=== PATIENT | female | born 1940 | race Caucasian/White ===

== ENCOUNTER → 2016-11-01 | Outpatient (CLI) | payer OTHER ==
[~2016-11-01] MED LIST: ACET-1256 PO; CHOL100010 PO; FELO10TA2 PO; FRS/40 PO; GLC/500 PO; GLC500 PO; GLIP-197 PO; POTA20TA16 PO; PRAV40TA2 PO; WARF3TAB PO; WARF6TAB PO
[2016-11-01 13:45] LABS: ESTIMATED AVERAGE GLUCOSE 194 mg/dl; HA1C FLAG Normal (Normal)
== END | disposition home or self-care (01) ==
LOC: C.LABBC 10:05
PROVIDERS: ATTEND Internal Medicine
DX: E11.9 Type 2 diabetes mellitus without complications (principal)

== ENCOUNTER → 2017-03-20 | Outpatient (CLI) | payer OTHER ==
--- NOTE | 2017-03-20 14:04 | MAMMOGRAPHY REPORT ---
BILATERAL DIGITAL SCREENING MAMMOGRAM WITH CAD: 03/20/2017 CLINICAL HISTORY: Routine screening. Patient has no complaints. TECHNIQUE: Current study was also evaluated with a Computer Aided Detection (CAD) system. Bilateral CC and MLO views were obtained. COMPARISON: Comparison is made to exams dated: 03/14/2016 mammogram, 03/13/2015 mammogram, 03/10/2014 adrian mogram, 01/28/2013 mammogram, 01/15/2012 mammogram, and 01/03/2010 mammogram - [facility] er. BREAST COMPOSITION: There are scattered areas of fibroglandular density in both breasts. FINDINGS: No suspicious masses, calcifications, or areas of architectural distortion are noted in ei ther breast. There has been no significant interval change compared to prior exams. Nodular asymmetr y in the left lateral breast on the cc view middle depth is similar to prior exams including the 2012 exam, and considered benign given long-term stability. Bilateral benign vascular calcifications are again noted. IMPRESSION: ACR BI-RADS CATEGORY 2: BENIGN There is no mammographic evidence of malignancy. A 1 year screening mammogram is recommended. The pa tient will receive written notification of the results. Approximately 10% of breast cancers are not detected with mammography. A negative mammographic report should not delay biopsy if a clinically suggestive mass is present. Nicolasa Lindquist M.D. /:03/20/2017 08:53:41 District Branch Manager: Ansley Muir, [facility] letter sent: Normal 1/2 BI-RADS Code: ACR BI-RADS Category 2: Benign
== END | disposition home or self-care (01) ==
LOC: C.MAMM 08:20
PROVIDERS: ATTEND Internal Medicine
DX: Z12.31 Encounter for screening mammogram for malignant neoplasm of breast (principal)

== ENCOUNTER → 2017-05-20 | Outpatient (CLI) | payer OTHER ==
[2017-05-20 12:12] LABS: BASO % 0.3 %; BASO ABS # 0.02 K/uL (0-0.2); COMPLETE YES; EOS % 1.7 %; HEMATOCRIT 39.4 % (37-47); IG% 0.4 %; LYMPH % 26.4 %; MEAN CELL VOLUME 93.6 fL (80-100); MEAN CORPUSCULAR HEMOGLOBIN 31.1 pg (25-34); MEAN CORPUSCULAR HGB CONC 33.2 g/dl (32-36); MEAN PLATELET VOLUME 10.7 fL (7.4-10.4); MONO % 7.4 %; NEUT % 63.8 %; PLATELET COUNT 300 K/uL (130-400); RED BLOOD COUNT 4.21 M/uL (4.2-5.4); WHITE BLOOD COUNT 7.19 K/uL (4.8-10.8)
[2017-05-20 12:24] LABS: ESTIMATED AVERAGE GLUCOSE 197 mg/dl; HA1C FLAG Normal (Normal)
[2017-05-20 12:34] LABS: ALT/SGPT 18 U/L (12-78); BLOOD UREA NITROGEN 20 mg/dl (7-18); CALCIUM 9.5 mg/dl (8.5-10.1); CARBON DIOXIDE 27 mmol/L (21-32); CHLORIDE 104 mmol/L (98-107); CHOLESTEROL 199 mg/dl (0-200); CREATININE 0.87 mg/dl (0.60-1.20); GLUCOSE 224 mg/dl (70-99); POTASSIUM 4.4 mmol/L (3.5-5.1); SODIUM 138 mmol/L (136-145); TRIGLYCERIDES 267 mg/dl (0-150); VERY LOW DENSITY LIPOPROT CALC 53 mg/dl
[2017-05-20 12:44] LABS: ALB/GLOB RATIO 0.9 (0.9-2); ALKALINE PHOSPHATASE 80 U/L (45-117); AST/SGOT 12 U/L (15-37); CHOLESTEROL/HDL RATIO 3.3; HDL CHOLESTEROL 60 mg/dl; LDL CHOLESTEROL CALCULATED 86 mg/dl
== END | disposition home or self-care (01) ==
LOC: C.LABBFT 08:05
PROVIDERS: ATTEND Internal Medicine
DX: G47.33 Obstructive sleep apnea (adult) (pediatric) (principal); E78.5 Hyperlipidemia, unspecified; E11.9 Type 2 diabetes mellitus without complications; I10 Essential (primary) hypertension; E55.9 Vitamin D deficiency, unspecified; Z79.01 Long term (current) use of anticoagulants; Z51.81 Encounter for therapeutic drug level monitoring; Z68.42 Body mass index [BMI] 45.0-49.9, adult; M99.73 Connective tissue and disc stenosis of intervertebral foramina of lumbar region

== ENCOUNTER → 2017-05-22 | Outpatient (CLI) | payer OTHER ==
--- NOTE | 2017-05-22 18:30 | DIAGNOSTIC IMAGING REPORT ---
MRI OF THE LEFT HIP WITHOUT CONTRAST CLINICAL HISTORY: Severe left hip and groin pain. COMPARISON STUDY: Pelvis radiograph December 27, 2014. TECHNIQUE: Utilizing a 1.5 Silvana magnet and dedicated coil, multiplanar, multiecho imaging of the left hip was performed without intravenous or intraarticular contrast. FINDINGS: Alignment of the left hip is anatomic. There is no evidence for avascular necrosis. No marrow edema or marrow replacement is present. There is mild osteoarthritis of the left hip with minimal joint space narrowing and osteophytosis. There is a suspected tear of the anterior superior acetabular labrum which is suboptimally assessed on this nonarthrogram exam. No hematoma is identified within the pelvis. Postoperative findings within the lumbar spine are partially imaged on this examination. There is an old medial left pubic bone fracture. There is no evidence for acute fracture. No muscular abnormality of the left hip is identified. IMPRESSION: 1. No acute abnormality within the left hip by MRI. No fracture or evidence for avascular necrosis. 2. Mild osteoarthritis of the left hip. 3. Suspected anterior superior left acetabular labral tear. Electronically signed by: Taras Franco M.D. 05/22/2017 6:28 PM Dictated Date/Time: 05/22/2017 6:21 PM
== END | disposition home or self-care (01) ==
LOC: C.MRI 16:41
PROVIDERS: ATTEND Physician Assistant
DX: M25.552 Pain in left hip (principal)

== ENCOUNTER → 2017-11-06 | Outpatient (CLI) | payer OTHER ==
[~2017-11-06] MED LIST changes: +TRAM-10 PO
[2017-11-06 13:09] LABS: BASO % 0.3 %; BASO ABS # 0.03 K/uL (0-0.2); EOS % 0.9 %; EOS ABS # 0.08 K/uL (0-0.5); HEMATOCRIT 42.4 % (37-47); HEMOGLOBIN 14.5 g/dL (12.0-16.0); IG# 0.02 K/uL (0.00-0.02); LYMPH % 23.6 %; LYMPH ABS # 2.05 K/uL (1.2-3.4); MEAN CELL VOLUME 92.4 fL (80-100); MEAN CORPUSCULAR HEMOGLOBIN 31.6 pg (25-34); MEAN CORPUSCULAR HGB CONC 34.2 g/dl (32-36); MONO % 6.5 %; MONO ABS # 0.56 K/uL (0.11-0.59); NEUT % 68.5 %; NEUT ABS # 5.94 K/uL (1.4-6.5); PLATELET COUNT 320 K/uL (130-400); RED CELL DISTRIBUTION WIDTH CV 13.7 % (11.5-14.5); RED CELL DISTRIBUTION WIDTH SD 46.4 fL (36.4-46.3); WHITE BLOOD COUNT 8.68 K/uL (4.8-10.8)
[2017-11-06 13:38] LABS: HEMOGLOBIN A1C 9.2 % (4.5-5.6)
[2017-11-06 14:48] LABS: ALBUMIN 3.8 gm/dl (3.4-5.0); ALKALINE PHOSPHATASE 97 U/L (45-117); ALT/SGPT 23 U/L (12-78); AST/SGOT 11 U/L (15-37); BLOOD UREA NITROGEN 17 mg/dl (7-18); CALCIUM 9.8 mg/dl (8.5-10.1); CARBON DIOXIDE 28 mmol/L (21-32); CREATININE 0.84 mg/dl (0.60-1.20); GLUCOSE 270 mg/dl (70-99); POTASSIUM 4.3 mmol/L (3.5-5.1); SODIUM 134 mmol/L (136-145); TOTAL PROTEIN 7.7 gm/dl (6.4-8.2)
== END | disposition home or self-care (01) ==
LOC: C.LABBC 11:05
PROVIDERS: ATTEND Internal Medicine
DX: G47.33 Obstructive sleep apnea (adult) (pediatric) (principal); E78.5 Hyperlipidemia, unspecified; E11.9 Type 2 diabetes mellitus without complications; Z98.890 Other specified postprocedural states; I10 Essential (primary) hypertension; G89.4 Chronic pain syndrome; Z68.42 Body mass index [BMI] 45.0-49.9, adult

== ENCOUNTER 2017-11-27 09:24 | Emergency (ER) | payer OTHER ==
[~2017-11-27] VITALS: Ht 162.6 cm; Wt 127.0 kg
[~2017-11-27 09:24] MED LIST changes: +POTA-639 PO; -POTA20TA16 PO
[2017-11-27 09:27] VITALS: TEMP 36.4
[2017-11-27] MEDS ORDERED: DIAZEPAM 5MG TAB PO ONE (09:45)
--- NOTE | 2017-11-27 09:54 | EMERGENCY ROOM VISIT NOTE ---
History Report prepared by Mauricio: Crista Bellamy Under the Supervision of: Dr. Ramses Heath M.D. First contact with patient: 09:30 Chief Complaint: NECK PAIN Stated Complaint: NECK PAIN, HIGH BLOOD SUGAR History of Present Illness The patient is a 77 year old white female with a past medical history of diabetes who presents to the ED with a cc of constant right sided neck pain beginning Friday, two days ago. Positive neck pain and stiffness. Negative sore throat. The patient reports she woke up with the pain on Friday. The patient talked to Dr. Augustine on Friday who told her to use a heating pad and follow up if her pain did not resolve by today.. She reports worsening pain with movement. She denies any recent falls/trauma or chiropractic manipulation. She has taken tramadol and Tylenol with no relief. She notes using a heating pad with minimal relief. The patient is on metformin and denies any recent changes to her medications. Source of History: patient Onset: two days ago Position: neck Quality: other (stiffness) Timing: constant Modifying Factors (Worsening): movement Modifying Factors (Relieving): heat Associated Symptoms: + neck pain, No sorethroat Review of Systems See HPI for pertinent positives and negatives. A total of ten systems were reviewed and were otherwise negative. Past Medical & Surgical Medical Problems: (1) Compression fracture of L3 lumbar vertebra (2) Diabetes (3) Left leg paresthesias (4) Lumbar stenosis with neurogenic claudication (5) PE (pulmonary embolism) Surgical Problems: (1) H/O: hysterectomy (2) Hx of cholecystectomy Family History Diabetes mellitus Social History Smoking Status: Never Smoker Alcohol Use: none Drug Use: none Marital Status: Housing Status: lives with family Occupation Status: unemployed Current/Historical Medications Scheduled Cholecalciferol (D 1000), 2,000 UNITS PO DAILY Cyclobenzaprine Hcl (Flexeril), 1 TAB PO TID Felodipine (Plendil), 10 MG PO QAM Furosemide (Lasix), 40 MG PO DAILY Glipizide (Glipizide Er), 1 TAB PO DAILY Metformin Hcl (Glucophage), 1,000 MG PO QDD Metformin Hcl (Glucophage), 1,000 MG PO DAILY Potassium Ext Rel (Klor-Con), 20 MEQ PO DAILY Pravastatin Sodium (Pravastatin Sodium), 40 MG PO HS Warfarin Sodium (Coumadin), 3 MG PO 3XWK Warfarin Sodium (Coumadin), 6 MG PO 4XWK Scheduled PRN Acetaminophen (Tylenol), 1-2 TABS PO Q6 PRN for Pain Tramadol (Ultram), Unknown Dose PO UD PRN for Pain Allergies Coded Allergies: No Known Allergies (Unverified , 11/27/17) Physical Exam Vital Signs Date Time Temp Pulse Resp B/P (MAP) Pulse Ox O2 Delivery O2 Flow Rate FiO2 11/27/17 11:51 86 16 150/70 97 11/27/17 11:28 86 16 150/70 97 Room Air 11/27/17 09:27 36.4 91 20 172/75 97 Room Air Physical Exam GENERAL: Awake, alert, well-appearing, NAD HENT: Normocephalic, atraumatic. EYES: Normal conjunctiva. Sclera non-icteric. NECK: Supple. No nuchal rigidity. Decreased ROM to right, is able to extend and flex and turn to the left. No carotid bruits auscultated, no stridor. RESPIRATORY: CTAB, no rhonchi, wheezing, crackles CARDIAC: RRR, no MRG ABDOMEN: Soft, obese, NTND, BS+ MSK: No chest wall TTP, no LE edema NEURO: GCS 15, CN 2-12 intact, moves all 4s on command SKIN: No rash or jaundice noted. Medical Decision & Procedures ER Provider Diagnostic Interpretation: Radiology results as stated below per my review and radiologist interpretation: CERVICAL SPINE 3 VIEWS HISTORY: R sided neck pain, trace movement L, decreased movement R COMPARISON: None. FINDINGS: The cervical spine is visualized from C1 through the superior endplate of T1. There is no fracture. No subluxation. Mild disc space narrowing at C4-C5 and C5-C6 with tiny endplate osteophytes. Prevertebral soft tissues and the atlantodens interval are intact. IMPRESSION: No fracture or subluxation within the cervical spine. Mild degenerative disc disease at C4-C5 and C5-C6. Electronically signed by: Javier Quinn M.D. Laboratory Results 11/27/17 09:55 Red Blood Count 4.46, Mean Corpuscular Volume 92.8, Mean Corpuscular Hemoglobin 31.4, Mean Corpuscular Hemoglobin Concent 33.8, Mean Platelet Volume 10.7, Neutrophils (%) (Auto) 73.3, Lymphocytes (%) (Auto) 19.5, Monocytes (%) (Auto) 5.3, Eosinophils (%) (Auto) 1.5, Basophils (%) (Auto) 0.2, Neutrophils # (Auto) 6.32, Lymphocytes # (Auto) 1.68, Monocytes # (Auto) 0.46, Eosinophils # (Auto) 0.13, Basophils # (Auto) 0.02 11/27/17 09:55 Test 11/27/17 09:55 White Blood Count 8.63 K/uL (4.8-10.8) Red Blood Count 4.46 M/uL (4.2-5.4) Hemoglobin 14.0 g/dL (12.0-16.0) Hematocrit 41.4 % (37-47) Mean Corpuscular Volume 92.8 fL (80-100) Mean Corpuscular Hemoglobin 31.4 pg (25-34) Mean Corpuscular Hemoglobin Concent 33.8 g/dl (32-36) Platelet Count 312 K/uL (130-400) Mean Platelet Volume 10.7 fL (7.4-10.4) Neutrophils (%) (Auto) 73.3 % Lymphocytes (%) (Auto) 19.5 % Monocytes (%) (Auto) 5.3 % Eosinophils (%) (Auto) 1.5 % Basophils (%) (Auto) 0.2 % Neutrophils # (Auto) 6.32 K/uL (1.4-6.5) Lymphocytes # (Auto) 1.68 K/uL (1.2-3.4) Monocytes # (Auto) 0.46 K/uL (0.11-0.59) Eosinophils # (Auto) 0.13 K/uL (0-0.5) Basophils # (Auto) 0.02 K/uL (0-0.2) RDW Standard Deviation 45.6 fL (36.4-46.3) RDW Coefficient of Variation 13.4 % (11.5-14.5) Immature Granulocyte % (Auto) 0.2 % Immature Granulocyte # (Auto) 0.02 K/uL (0.00-0.02) Prothrombin Time 22.3 SECONDS (9.0-12.0) Prothromb Time International Ratio 2.2 (0.9-1.1) Activated Partial Thromboplast Time 36.3 SECONDS (21.0-31.0) Partial Thromboplastin Ratio 1.4 Anion Gap 7.0 mmol/L (3-11) Est Creatinine Clear Calc Drug Dose 65.8 ml/min Estimated GFR () 66.6 Estimated GFR (Non- 57.4 BUN/Creatinine Ratio 16.7 (10-20) Calcium Level 9.7 mg/dl (8.5-10.1) Magnesium Level 1.8 mg/dl (1.8-2.4) Total Bilirubin 0.9 mg/dl (0.2-1) Direct Bilirubin 0.2 mg/dl (0-0.2) Aspartate Amino Transf (AST/SGOT) 14 U/L (15-37) Alanine Aminotransferase (ALT/SGPT) 20 U/L (12-78) Alkaline Phosphatase 93 U/L (45-117) Total Protein 8.1 gm/dl (6.4-8.2) Albumin 3.8 gm/dl (3.4-5.0) Beta-Hydroxybutyric Acid 2.15 mg/dL (0.2-2.81) Thyroid Stimulating Hormone (TSH) 1.800 uIu/ml (0.300-4.500) Laboratory results reviewed by me Medications Administered Medications (Trade) Dose Ordered Sig/Kimberly Route Start Time Stop Time Status Last Admin Dose Admin Diazepam (Valium Tab) 5 mg NOW ONCE PO 11/27/17 09:45 11/27/17 09:46 DC 11/27/17 09:46 5 MG ED Course 0934: The patient was evaluated in room B4B. A complete history and physical exam was performed. 1039: On reassessment the patient has improved neck movement. 1126: I updated the patient on her test results. She is resting comfortably. 1155: I reevaluated the patient. Discussed results and discharge instructions: She verbalized understanding and agreement. The patient is ready for discharge. Medical Decision The patient is a 77 year old white female with a past medical history of diabetes who presents to the ED with a cc of right sided neck pain beginning Friday, two days ago. Nursing notes reviewed. Ancillary studies and prior records reviewed. Differential diagnosis: Etiologies such as fracture, dislocation, neurovascular compromise, compartment syndrome, soft tissue injury, as well as others were entertained. Patient was seen and evaluated the bedside. Patient has complained of persistent right-sided neck discomfort. On exam she does have pain at the trapezius. Patient has no bruits auscultated and is not stridulous. The patient is able to turn mildly to the left and does have some mild ability to flex and extend the neck but decreased ability to turn to the right. Patient denies any recent trauma. Patient is unsure as to whether she slept on it wrong. Patient denies any numbness, tingling, or weakness. Of note the patient does take Coumadin for prior PE. Patient did have blood work completed along with a cervical spine series and the patient was given some Valium. The patient had taken some Tylenol and tramadol [employer]. Patient's blood work is fairly unremarkable. Patient's INR is therapeutic. Patient did have elevated blood glucose. Patient was told to continue to take her medications and to follow-up with her PCP. Patient was also counseled on diet, physical activity. Patient's bicarb and anion gap are normal. Less likely DKA. Patient's neck pain did improve with the Valium. I do not believe that she requires more advanced imaging given her nonfocal neurologic exam, lack of fever, and only complains of decreased mobility to the right side. This is improved after medications. Patient does have some degenerative change seen on her cervical spine films. Patient was deemed suitable for outpatient follow-up and treatment at this time. Patient was given strict follow-up, discharge, and return precautions. All questions were answered. Patient was deemed suitable for outpatient follow-up at this time. Patient agreed with the plan of care and was safely discharged home. Medication Reconcilliation Current Medication List: was personally reviewed by me Blood Pressure Screening Patient's blood pressure: Elevated blood pressure Blood pressure disposition: Referred to PCP Impression Primary Impression: Spasm of cervical paraspinous muscle Additional Impressions: Trapezius muscle spasm Hyperglycemia Scribe Attestation The scribe's documentation has been prepared under my direction and personally reviewed by me in its entirety. I confirm that the note above accurately reflects all work, treatment, procedures, and medical decision making performed by me. Departure Information Dispostion Home / Self-Care Prescriptions Cyclobenzaprine Hcl (FLEXERIL) 10 Mg Tab 1 TAB PO TID for 3 Days, #9 TAB Prov: Ramses Heath M.D. 11/27/17 Referrals Roverto Augustine M.D. (PCP) Forms HOME CARE DOCUMENTATION FORM, IMPORTANT VISIT INFORMATION, WORK / SCHOOL INSTRUCTIONS Patient Instructions ED Neck Pain No Trauma, ED Spasm Neck No Injury, [facility] Additional Instructions Please return to the emergency department if you have worsening or recurrent symptoms not amenable to at-home treatment. Please call for a follow-up appointment with her primary care physician. Please take your medications as prescribed. If you have other concerns and/or complaints please feel free to also call your primary care physician's office or return the ED for further evaluation, management, and treatment. You may take tylenol 650 mg every 6 hours as needed for pain/fever unless told by your physician to not take it or have liver problems. You may continue to take the Tylenol and tramadol. If he still have discomfort you may try the Flexeril. Use the Flexeril with caution as it can cause you to be sleepy, sedated, and/or cause respiratory problems. He may also apply ice and or moist heat to her neck. You can do gentle range of motion, stretching and exercises. Please follow-up with your PCP or return to the emergency department if you have persistent symptoms. Take your medications as prescribed. You have been examined and treated today on an emergency basis only. This is not a substitute for, or an effort to provide, complete comprehensive medical care. It is impossible to recognize and treat all injuries or illnesses in a single emergency department visit. It is therefore important that you follow up closely with [facility], your PCP, and/or your specialist(s). Call as soon as possible for an appointment. Thank you for your time and consideration. I look forward to speaking with you again soon. Please don't hesitate to call us if you have any questions. Problem Qualifiers
[2017-11-27 10:00] VITALS: Ht 162.6 cm; Wt 127.0 kg
[2017-11-27 10:20] LABS: BASO % 0.2 %; BASO ABS # 0.02 K/uL (0-0.2); EOS % 1.5 %; EOS ABS # 0.13 K/uL (0-0.5); HEMATOCRIT 41.4 % (37-47); IG# 0.02 K/uL (0.00-0.02); LYMPH % 19.5 %; LYMPH ABS # 1.68 K/uL (1.2-3.4); MEAN CELL VOLUME 92.8 fL (80-100); MEAN CORPUSCULAR HEMOGLOBIN 31.4 pg (25-34); MEAN CORPUSCULAR HGB CONC 33.8 g/dl (32-36); MEAN PLATELET VOLUME 10.7 fL (7.4-10.4); MONO % 5.3 %; MONO ABS # 0.46 K/uL (0.11-0.59); NEUT % 73.3 %; NEUT ABS # 6.32 K/uL (1.4-6.5); PLATELET COUNT 312 K/uL (130-400); RED CELL DISTRIBUTION WIDTH CV 13.4 % (11.5-14.5); RED CELL DISTRIBUTION WIDTH SD 45.6 fL (36.4-46.3); WHITE BLOOD COUNT 8.63 K/uL (4.8-10.8)
[2017-11-27] MEDS ORDERED: METF500T PO (10:29)
[2017-11-27] MEDS ORDERED: CHOL100041 PO (10:29)
[2017-11-27 10:31] LABS: INR 2.2 (0.9-1.1); PTT PATIENT 36.3 SECONDS (21.0-31.0)
[2017-11-27 10:36] LABS: ALBUMIN 3.8 gm/dl (3.4-5.0); CALCIUM 9.7 mg/dl (8.5-10.1); CREATININE 0.96 mg/dl (0.60-1.20)
--- NOTE | 2017-11-27 10:36 | DIAGNOSTIC IMAGING REPORT ---
CERVICAL SPINE 3 VIEWS HISTORY: R sided neck pain, trace movement L, decreased movement R COMPARISON: None. FINDINGS: The cervical spine is visualized from C1 through the superior endplate of T1. There is no fracture. No subluxation. Mild disc space narrowing at C4-C5 and C5-C6 with tiny endplate osteophytes. Prevertebral soft tissues and the atlantodens interval are intact. IMPRESSION: No fracture or subluxation within the cervical spine. Mild degenerative disc disease at C4-C5 and C5-C6. Electronically signed by: Javier Quinn M.D. 11/27/2017 10:35 AM Dictated Date/Time: 11/27/2017 10:20 AM
[2017-11-27 10:38] LABS: TOTAL PROTEIN 8.1 gm/dl (6.4-8.2)
[2017-11-27] MEDS ORDERED: CYCL10TA6 PO (11:41)
[2017-11-27 11:51] VITALS: BP 150/70; PULSE 86; O2SAT 97
== END 2017-11-27 11:52 | disposition home or self-care (01) ==
LOC: C.EDB 09:25
DX: M62.838 Other muscle spasm (principal); E11.65 Type 2 diabetes mellitus with hyperglycemia; M48.062 Spinal stenosis, lumbar region with neurogenic claudication; Z79.84 Long term (current) use of oral hypoglycemic drugs; Z79.01 Long term (current) use of anticoagulants; Z79.899 Other long term (current) drug therapy; Z86.711 Personal history of pulmonary embolism; Z90.710 Acquired absence of both cervix and uterus; Z90.49 Acquired absence of other specified parts of digestive tract

== ENCOUNTER → 2018-03-24 | Outpatient (CLI) | payer OTHER ==
[~2018-03-24] MED LIST changes: +CANA1TAB PO; -CHOL100010 PO; +CHOL100041 PO; +DOXY100C76 PO; -GLC/500 PO; -GLC500 PO; +METF500T PO; -TRAM-10 PO; -WARF3TAB PO; +WARF3TAB6 PO; -WARF6TAB PO; +WARF6TAB5 PO
--- NOTE | 2018-03-25 13:51 | MAMMOGRAPHY REPORT ---
BILATERAL DIGITAL SCREENING MAMMOGRAM TOMOSYNTHESIS WITH CAD: 03/24/2018 CLINICAL HISTORY: Routine screening. TECHNIQUE: The study was acquired using full field digital technology and interpreted from soft copy. Breast tomosynthesis in addition to standard 2D mammography was performed. Current study was also ev aluated with a Computer Aided Detection (CAD) system. COMPARISON: Comparison is made to exams dated: 03/20/2017 mammogram, 03/14/2016 mammogram, 03/13/2015 adrian mogram, 03/10/2014 mammogram, 01/15/2012 mammogram, and 01/28/2013 mammogram - [facility] er. BREAST COMPOSITION: There are scattered areas of fibroglandular density in both breasts. FINDINGS: Ossifications in the breasts. An asymmetry in the slightly lateral posterior left breast a ppears very similar to the 2013 and 2011 mammograms, suggesting benignity, most likely normal overlap ping fibroglandular tissue. No suspicious mass, architectural distortion or cluster of microcalcifica tions is seen. IMPRESSION: ACR BI-RADS CATEGORY 1: NEGATIVE There is no mammographic evidence of malignancy. A 1 year screening mammogram is recommended.( 019) The patient will receive written notification of the results. Some breast cancers are not detected with mammography. A negative mammographic report should not boo y biopsy if a clinically suggestive mass is present. Marychuy Desouza M.D. ay/:03/24/2018 15:35:24 Creel Clerk: RT Grey(Daron)(M), [facility] letter sent: Normal 1/2 BI-RADS Code: ACR BI-RADS Category 1: Negative
== END | disposition home or self-care (01) ==
LOC: C.MAMM 10:26
PROVIDERS: ATTEND Internal Medicine
DX: Z12.31 Encounter for screening mammogram for malignant neoplasm of breast (principal)

== ENCOUNTER 2020-10-16 05:55 | Inpatient (IN) ==
--- NOTE | 2020-09-29 12:56 | PAT Medication Instructions ---
Medication Instructions Date of Service September 29, 2020 Home Medications Medication Instructions Recorded Christoaglar KwikPen U-100 Insulin 100 16 units SUBCUT QAM #15 ml NS 12/14/19 unit/mL (3 mL) subcutaneous BD Ultra-Fine Mahsa Pen Needle 32 #100 ea NS 01/20/20 gauge x 5/32" metformin 500 mg tablet,extended 1,000 mg PO BID #360 tab 03/09/20 release 24hr potassium chloride 20 mEq 20 meq PO QAM #90 tab 05/19/20 tablet,extended release pravastatin 40 mg tablet 40 mg PO HS #90 tab 05/30/20 OneTouch Verio test strips #300 ea NS 06/29/20 amoxicillin 500 mg tablet 2,000 mg PO DIRECTED PRN #4 tab 09/27/20 cholecalciferol (vitamin D3) [Vitamin D3] 2,000 unit PO QAM cyanocobalamin (vitamin B-12) [Vitamin B-12] 500 mcg PO QAM Basaglar KwikPen U-100 Insulin 100 unit/mL (3 mL) subcutaneous 16 units SUBCUT QAM metformin 500 mg tablet,extended release 24hr 1,000 mg PO BID potassium chloride 20 mEq tablet,extended release 20 meq PO QAM pravastatin 40 mg tablet 40 mg PO HS felodipine 10 mg PO QAM furosemide 40 mg PO QAM warfarin [Jantoven] 3 mg PO WK warfarin [Jantoven] 6 mg PO 6XWK amoxicillin 500 mg tablet 2,000 mg PO DIRECTED PRN dapagliflozin [Farxiga] 5 mg PO QAM glipizide 10 mg PO BID Continue as directed amoxicillin 500 mg tablet 2,000 mg PO DIRECTED PRN ASK your prescriber and surgeon warfarin [Jantoven] 3 mg PO WK warfarin [Jantoven] 6 mg PO 6XWK DO NOT take the morning of surgery cholecalciferol (vitamin D3) [Vitamin D3] 2,000 unit PO QAM cyanocobalamin (vitamin B-12) [Vitamin B-12] 500 mcg PO QAM metformin 500 mg tablet,extended release 24hr 1,000 mg PO BID potassium chloride 20 mEq tablet,extended release 20 meq PO QAM furosemide 40 mg PO QAM dapagliflozin [Farxiga] 5 mg PO QAM glipizide 10 mg PO BID Take morning of surgery With a small sip of water, OTHERWISE NOTHING TO EAT OR DRINK AFTER MIDNIGHT: felodipine 10 mg PO QAM Take evening before surgery metformin 500 mg tablet,extended release 24hr 1,000 mg PO BID pravastatin 40 mg tablet 40 mg PO HS glipizide 10 mg PO BID Insulin Dependent Diabetic Patients * Test your blood sugar the morning of surgery * If Blood Sugar is GREATER THAN 150, take HALF of your regular dose of: Basaglar KwikPen U-100 Insulin 100 unit/mL (3 mL) -- TAKE 8 UNITS * If Blood Sugar is LESS THAN 150, DO NOT TAKE ANY: Basaglar KwikPen U-100 Insulin 100 unit/mL (3 mL) Other Notes If you have any questions please call us at [phone] or [phone] or [phone] or [phone]
--- NOTE | 2020-10-03 10:56 | Anesthesiology Consultation ---
Date of Service October 03, 2020 Assessment & Plan (1) Encounter for pre-operative examination: COVID Status: As of 10/03 assessment, patient denies travel to endemic area, known exposure/sick contacts, or symptoms of COVID19. Patient instructed that they and their household members must follow strict social distancing guidelines, wear a mask in public and avoid travel/events/gatherings for 14 days prior to surgery. Preoperative COVID19 testing [place] prior to [place] [facility] [place] made aware to self-isolate as much as possible between COVID testing and surgery. BSG AM DOS Chart Review Chart Review: Acceptable Risk for Surgery and Patient seen in Pre Admission Test ing Teaching & Discussion Instructed NPO after midnight before surgery, except medications with 15 cc of water. Medication instructions provided according to the PAT guidelines. History Surgery Operation Date: 10/16/20 12:55 Proposed Procedures p Left Sacroiliac Joint Fusion - J Luis Schafer DO Height/Weight Height: 5 ft 4 in Weight: 122.6 kg Allergies Allergy/AdvReac Type Severity Reaction Status Date / Time No Known Allergies Allergy Verified 09/27/20 13:37 Medications Home Medications Medication Instructions Recorded Confirmed Last Taken cholecalciferol (vitamin D3) 2,000 unit PO QAM 02/08/19 10/02/20 07/23/20 [Vitamin D3] cyanocobalamin (vitamin B-12) 500 mcg PO QAM 02/08/19 10/02/20 07/23/20 [Vitamin B-12] blood-glucose meter #1 ea 07/23/19 10/02/20 Unknown lancets 33 gauge #100 ea 07/23/19 10/02/20 Unknown Ellie Liang U-100 Insulin 100 16 units SUBCUT QAM #15 ml NS 12/14/19 10/02/20 07/23/20 unit/mL (3 mL) subcutaneous BD Ultra-Fine Mahsa Pen Needle 32 #100 ea NS 01/20/20 10/02/20 Unknown gauge x 5/32" metformin 500 mg tablet,extended 1,000 mg PO BID #360 tab 03/09/20 10/02/20 07/23/20 09:00 release 24hr potassium chloride 20 mEq 20 meq PO QAM #90 tab 05/19/20 10/02/20 07/23/20 tablet,extended release pravastatin 40 mg tablet 40 mg PO HS #90 tab 05/30/20 10/02/20 07/22/20 Grupanyauch Verio test strips #300 ea NS 06/29/20 10/02/20 Unknown felodipine 10 mg PO QAM 07/23/20 10/02/20 07/23/20 furosemide 40 mg PO QAM 07/23/20 10/02/20 07/23/20 amoxicillin 500 mg tablet 2,000 mg PO DIRECTED PRN #4 tab 09/27/20 10/02/20 Unknown dapagliflozin [Farxiga] 5 mg PO QAM 09/27/20 10/02/20 Unknown glipizide 10 mg PO BID 09/27/20 10/02/20 Unknown enoxaparin 40 mg/0.4 mL 40 mg SUBCUT Q24H #10 syr 10/02/20 10/02/20 Unknown subcutaneous syringe warfarin 3 mg tablet See Rx Instructions PO .COMPLEX 10/02/20 10/02/20 Unknown warfarin 6 mg tablet See Rx Instructions PO .COMPLEX 10/02/20 Unknown tab Past Medical History Medical History Chronic back pain Compression fracture of L3 lumbar vertebra hx Degenerative disc disease Diabetes mellitus, type 2 IDDM History of pulmonary embolism 1991 on WARFARIN. No problems since. History of rhinophyma nose Hx of basal cell carcinoma Hx of deep venous thrombosis 1991. no problems currently. taking coumadin daily Hyperlipidemia Hypertension Left hip pain Lumbar stenosis Myofascial pain Nausea and vomiting after administration of anesthetic agent Obstructive sleep apnea CPAP, pt reports she is very diligent and compliant. On anticoagulant therapy Past Family History Family History Father Diabetes Unknown COPD (chronic obstructive pulmonary disease) Coronary heart disease Type 2 diabetes mellitus Brother Diabetes Sister Myocardial infarction Cardiac disorder Systemic lupus erythematosus Denies family history of Ovarian cancer Prostate cancer Breast cancer Colorectal cancer Past Surgical History Surgical History History of appendectomy History of carpal tunnel release of both wrists History of colonoscopy History of knee replacement procedure of left knee History of knee replacement procedure of right knee History of tonsillectomy Hx of basal cell carcinoma excision Hx of cholecystectomy Hx of hernia repair ventral hernia repair Hx of squamous cell carcinoma excision Hx of total hysterectomy (~1970) with BSO S/P epidural steroid injection S/P laminectomy S/P lumbar fusion Status post uvulopalatopharyngoplasty Past Anesthesia History No Hx of Anesthesia Complications (other than PONV) and No Family Hx of Anesthesia Complications History of PONV No Hx of Motion Sickness and History of PONV Social History Smoking Status: Never smoker Do You Dip or Chew Tobacco: No Hx Alcohol Use: No Hx Substance Use: No substance use type: does not use Review of Systems Pt denies any recent chest pain, shortness of breath, palpitations, cough, fever, URI, or uncontrolled acid reflux. +hip pain, back pain Physical Exam Vital Signs BP: 141/72 P: 76bpm SPO2: 97% RA T: 98.0 F R: 12 Constitutional + morbidly obese ENMT Mouth: + small oral opening; no dental restorations, no chipped teeth and no loose teeth Thyromental Distance: > or= 3.5 Finger Breadths (.5) Mallampati Class: IV Rhinophymosis. Neck + thick neck Respiratory normal respiratory effort, lungs clear to auscultation Cardiovascular Rate/Rhythm: regular rate and regular rhythm Heart Sounds: no murmur Extremities: + edema (2+ nonpitting, pt reports at baseline) Testing Laboratory Results 10/03/20 11:06 10/03/20 11:06 PT 23.6 Seconds (9.0-12.0) H 10/03/20 11:06 INR 2.5 (0.9-1.1) H 10/03/20 11:06 APTT 38.7 Seconds (21.0-31.0) H 10/03/20 11:06 Hemoglobin A1c 6.2 % (4.5-5.6) H 10/03/20 11:06 Urine Color Yellow 10/03/20 11:06 Urine Appearance Clear (Clear) 10/03/20 11:06 Urine pH 5.0 (4.5-7.5) 10/03/20 11:06 Ur Specific [place] 1.015 (1.000-1.030) 10/03/20 11:06 Urine Protein Negative (Negative) 10/03/20 11:06 Urine Glucose (UA) 3+ (Negative) H 10/03/20 11:06 Urine Ketones Negative (Negative) 10/03/20 11:06 Urine Nitrite Negative (Negative) 10/03/20 11:06 Ur Leukocyte Esterase Negative (Negative) 10/03/20 11:06 Blood Type O Positive 10/03/20 11:06 Antibody Screen NEGATIVE 10/03/20 11:06 Electrocardiogram Date: 10/03/20 Findings: + NSR @ (76bpm) and + no change from (2018) Chest X-Ray Date: 10/03/20 FINDINGS: PA and lateral chest radiographs are compared to study dated 08/26/2014 and correlated with chest CT dated 03/24/2007. The heart is mildly enlarged noting atherosclerotic calcification of the thoracic aorta. The pulmonary vasculature is noncongested. There is bibasilar scarring/atelectasis. No airspace consolidation or pleural effusion is identified. There is no pneumothorax. The skeletal structures are osteopenic. Degenerative change is seen throughout the spine. Compression deformities are noted in the lower thoracic and upper lumbar region. Fusion hardware is noted at the thoracolumbar junction. There are healed right-sided rib fractures. Cholecystectomy clips are noted in the upper abdomen. IMPRESSION: Cardiomegaly with no acute cardiopulmonary abnormality.
[2020-10-03 11:47] LABS: Basophils # (auto) 0.02 K/uL (0-0.2); Basophils % (auto) 0.2 %; Eosinophils # (auto) 0.12 K/uL (0-0.5); Eosinophils % (auto) 1.5 %; Hematocrit (blood only) 42.7 % (37-47); Hemoglobin 14.3 g/dL (12.0-16.0); Immature Granulocytes # (auto) 0.03 K/uL (0.00-0.02); Immature Granulocytes % (auto) 0.4 %; Lymphocytes # (auto) 1.84 K/uL (1.2-3.4); Lymphocytes % (auto) 22.4 %; Mean Corpuscular Hemoglobin 31.5 pg (25-34); Mean Corpuscular Hgb Conc 33.5 g/dL (32-36); Mean Corpuscular Volume 94.1 fL (80-100); Mean Platelet Volume 10.6 fL (7.4-10.4); Monocytes # (auto) 0.52 K/uL (0.11-0.59); Monocytes % (auto) 6.3 %; Neutrophils # (auto) 5.67 K/uL (1.4-6.5); Neutrophils % (auto) 69.2 %; Platelet Count 360 K/uL (130-400); RDW Coefficient of Variation 13.7 % (11.5-14.5); RDW Standard Deviation 47.4 fL (36.4-46.3); Red Blood Count 4.54 M/uL (4.2-5.4)
--- NOTE | 2020-10-03 11:56 | XRay Report ---
TWO VIEW CHEST CLINICAL HISTORY: Preoperative examination. FINDINGS: PA and lateral chest radiographs are compared to study dated 08/26/2014 and correlated with chest CT dated 03/24/2007. The heart is mildly enlarged noting atherosclerotic calcification of the th oracic aorta. The pulmonary vasculature is noncongested. There is bibasilar scarring/atelectasis. No airspace consolidation or pleural effusion is identified. There is no pneumothorax. The skeletal stru ctures are osteopenic. Degenerative change is seen throughout the spine. Compression deformities are noted in the lower thoracic and upper lumbar region. Fusion hardware is noted at the thoracolumbar ju nction. There are healed right-sided rib fractures. Cholecystectomy clips are noted in the upper abdo men. IMPRESSION: Cardiomegaly with no acute cardiopulmonary abnormality. ACT 112: Negative or not required by law. Electronically signed by: Leonidas Nolasco M.D. 10/03/2020 11:54 AM
[2020-10-03 11:58] LABS: INR 2.5 (0.9-1.1); Partial Thromboplastin Ratio 1.5; Partial Thromboplastin Time 38.7 Seconds (21.0-31.0); Prothrombin Time 23.6 Seconds (9.0-12.0)
[2020-10-03 12:00] LABS: Appearance Urine Clear (Clear); Bilirubin Urine Negative (Negative); Blood Urine Negative (Negative); Color Urine Yellow; Glucose Urine UA 3+ (Negative); Ketones Urine Negative (Negative); Leukocyte Esterase Urine Negative (Negative); Nitrite Urine Negative (Negative); Protein Urine Negative (Negative); Specific Gravity Urine 1.015 (1.000-1.030); Urobilinogen Urine Negative (Negative)
[2020-10-03 12:22] LABS: BUN Creatinine Ratio 22.2 (10-20); Creatinine Clr Calc Pharmacy 64.4 ml/min; Est GFR (African American) 68.2; Est GFR (Non-African American) 58.9; Potassium 4.5 mmol/L (3.5-5.1)
[2020-10-03 13:59] LABS: Estimated Average Glucose 131 mg/dl; Hemoglobin A1C 6.2 % (4.5-5.6)
--- NOTE | 2020-10-03 16:53 | Electrocardiogram Report ---
Test Reason : Blood Pressure : / mmHG Vent. Rate : 076 BPM Atrial Rate : 076 BPM P-R Int : 136 ms QRS Dur : 082 ms QT Int : 404 ms P-R-T Axes : 074 030 046 degrees QTc Int : 454 ms Normal sinus rhythm Normal ECG When compared with ECG of 28-JAN-2018 09:05, No significant change was found Confirmed by Aneesh Stein ([id number]) on 10/03/2020 4:53:05 PM Referred By: J Luis Schafer Confirmed By:Laurent Stein
[~2020-10-16 05:55] MED LIST changes: -ACET-1256 PO; -CANA1TAB PO; -CHOL100041 PO; -DOXY100C76 PO; -FELO10TA2 PO; -FRS/40 PO; -GLIP-197 PO; +LACTATED RINGER'S 1,000 ML IV SCH; -METF500T PO; -POTA-639 PO; -PRAV40TA2 PO; -WARF3TAB6 PO; -WARF6TAB5 PO
[2020-10-16] MEDS ORDERED: ACETAMINOPHEN 500 MG TAB PO SCH (06:00)
[2020-10-16] MEDS ORDERED: GABAPENTIN 300 MG CAP PO SCH (06:00)
[2020-10-16] MEDS ORDERED: CeleBREX 200 MG CAP PO SCH (06:00)
[2020-10-16] MEDS ORDERED: LACTATED RINGER'S 1,000 ML IV SCH (06:00)
[2020-10-16] MEDS ORDERED: HYDROmorphone INJ 1 MG/ML SYRINGE IV PRN ×2 (06:30→10:13)
[2020-10-16] MEDS ORDERED: fentaNYL citrate 100 MCG/2 ML VIAL IV PRN (06:30)
[2020-10-16] MEDS ORDERED: ATROPINE SULFATE 0.1 MG/ML 10ML SYR IV PRN (06:30)
[2020-10-16] MEDS ORDERED: ePHEDrine sulfate 50 MG/ML AMP IV PRN (06:30)
[2020-10-16] MEDS ORDERED: ONDANSETRON INJ 2 MG/ML 2 ML VIAL IV PRN ×2 (06:30→10:13)
[2020-10-16] MEDS ORDERED: BACITRACIN INJ 50,000 UNIT VIAL ONE (06:57)
[2020-10-16] MEDS ORDERED: BUPIVACAINE/EPINEPHRINE 0.5% MPF 1:200,000 30 ML VIAL ONE (06:57)
[2020-10-16 07:08] LABS: Partial Thromboplastin Time 25.1 Seconds (21.0-31.0); Prothrombin Time 10.5 Seconds (9.0-12.0)
[2020-10-16] MEDS ORDERED: ROCURONIUM BROMIDE 10 MG/ML 5 ML VIAL IV ONE (07:18)
[2020-10-16] MEDS ORDERED: PROPOFOL IV EMULSION 10 MG/ML 20 ML VIAL IV ONE ×2 (07:18→07:27)
[2020-10-16] MEDS ORDERED: LIDOCAINE HCL 2% 2 ML VIAL/AMP(20MG/ML) INFIL ONE (07:18)
[2020-10-16] MEDS ORDERED: ONDANSETRON INJ 2 MG/ML 2 ML VIAL ONE ×2 (07:18→08:48)
[2020-10-16] MEDS ORDERED: DEXAMETHASONE SOD INJ 4 MG/ML VIAL ONE (07:18)
[2020-10-16] MEDS ORDERED: fentaNYL citrate 100 MCG/2 ML VIAL ONE ×2 (07:19→08:31)
[2020-10-16] MEDS ORDERED: NEOSTIGMINE METHYLSULFATE 1 MG/ML 10ML VIAL ONE (07:27)
[2020-10-16] MEDS ORDERED: GLYCOPYRROLATE 0.2 MG/ML VIAL ONE ×2 (07:27→08:40)
--- NOTE | 2020-10-16 07:30 | History & Physical Bridge Note ---
Date of Service October 16, 2020 History & Physical Bridge Note I have examined the patient, reviewed the History & Physical and in the interval since the performance of the History & Physical I have noted the following changes of clinical significance: no changes noted
--- NOTE | 2020-10-16 07:31 | History & Physical Report ---
Date of Service October 16, 2020 Assessment & Plan (1) Sacroiliitis: Admission and Anticipated Discharge Date Admission Date: Sacroiliac joint fusion History of Present Illness Chief Complaint: Sacroiliitis Primary Care Provider: Roverto Augustine MD This is a 71-year-old female known to Presents with chronic persistent sacroiliitis. After failing course of nonoperative care is here for surgical invention. Allergies Allergy/AdvReac Type Severity Reaction Status Date / Time No Known Allergies Allergy Verified 10/16/20 06:36 Home Medications Medication Instructions Recorded Confirmed Type cholecalciferol (vitamin D3) 2,000 unit PO QAM 02/08/19 10/16/20 History [Vitamin D3] cyanocobalamin (vitamin B-12) 500 mcg PO QAM 02/08/19 10/16/20 History [Vitamin B-12] blood-glucose meter #1 ea 07/23/19 10/09/20 History lancets 33 gauge #100 ea 07/23/19 10/09/20 History Christoaglsuyapa Liang U-100 Insulin 100 16 units SUBCUT QAM #15 ml NS 12/14/19 10/16/20 Rx unit/mL (3 mL) subcutaneous BD Ultra-Fine Mahsa Pen Needle 32 #100 ea NS 01/20/20 10/09/20 Rx gauge x 5/32" metformin 500 mg tablet,extended 1,000 mg PO BID #360 tab 03/09/20 10/16/20 Rx release 24hr potassium chloride 20 mEq 20 meq PO QAM #90 tab 05/19/20 10/16/20 Rx tablet,extended release pravastatin 40 mg tablet 40 mg PO HS #90 tab 05/30/20 10/16/20 Rx OneTouch Verio test strips #300 ea NS 06/29/20 10/09/20 Rx felodipine 10 mg PO QAM 07/23/20 10/16/20 History furosemide 40 mg PO QAM 07/23/20 10/16/20 History amoxicillin 500 mg tablet 2,000 mg PO DIRECTED PRN #4 tab 09/27/20 10/16/20 Rx dapagliflozin [Farxiga] 5 mg PO QAM 09/27/20 10/16/20 History glipizide 10 mg PO BID 09/27/20 10/16/20 History enoxaparin 40 mg/0.4 mL 40 mg SUBCUT Q24H #10 syr 10/02/20 10/16/20 Rx subcutaneous syringe warfarin 3 mg tablet See Rx Instructions PO .COMPLEX 10/02/20 10/16/20 History warfarin 6 mg tablet See Rx Instructions PO .COMPLEX 10/02/20 10/16/20 History tab Past Med/Surg History Medical History Chronic back pain Compression fracture of L3 lumbar vertebra Degenerative disc disease Diabetes mellitus, type 2 History of pulmonary embolism History of rhinophyma Hx of basal cell carcinoma Hx of deep venous thrombosis Hyperlipidemia Hypertension Left hip pain Lumbar stenosis Myofascial pain Nausea and vomiting after administration of anesthetic agent Obstructive sleep apnea On anticoagulant therapy Surgical History History of appendectomy History of carpal tunnel release of both wrists History of colonoscopy History of knee replacement procedure of left knee History of knee replacement procedure of right knee History of tonsillectomy Hx of basal cell carcinoma excision Hx of cholecystectomy Hx of hernia repair Hx of squamous cell carcinoma excision Hx of total hysterectomy (~1970) S/P epidural steroid injection S/P laminectomy S/P lumbar fusion Status post uvulopalatopharyngoplasty Family History Father Diabetes Unknown COPD (chronic obstructive pulmonary disease) Coronary heart disease Type 2 diabetes mellitus Brother Diabetes Sister Myocardial infarction Cardiac disorder Systemic lupus erythematosus Denies family history of Ovarian cancer Prostate cancer Breast cancer Colorectal cancer Social History Smoking Status: Never smoker Second Hand Exposure: No; Do You Dip or Chew Tobacco: No; Tobacco Cessation Education Requested by Patient: No Hx Alcohol Use: No Hx Substance Use: No Preferred Language: Upper Sorbian Communication Ability: Effective Visual Impairment: Limited Hearing Ability: Normal Vehicle Body Builder Required: No Beliefs That Will Affect Care: None marital status: Current Living Situation: Spouse current occupational status: retired Other Information That Helps Us Care for You: No Feels Safe at Home: Yes Safety Concerns: Feels Safe At This Time Childhood Exposure to Second-Hand Smoke: Yes caffeine: Yes Dental Care, Regularly: Yes Physical Activity Frequency: 1-2 Times per Week Physical Activity Frequency Comment: walk Seatbelt Use: always Sunscreen Use: Yes Assistive Devices: CPAP and Glasses Physical Exam Physical Exam: Patient is alert and oriented Heart regular rate and rhythm Lungs clear to auscultation Results & Data ([facility]) Vital Signs (Past 12 Hours) Vital Signs Temp Pulse Resp BP Pulse Ox 10/16/20 06:51 36.7 C 95 H 18 157/69 H 97
[2020-10-16] MEDS ORDERED: LARYING-O-JET KIT (LTA) ONE (07:32)
[2020-10-16] MEDS ORDERED: ePHEDrine sulfate 50 MG/ML SYR ONE (08:09)
[2020-10-16] MEDS ORDERED: FLOSEAL HEMOSTATIC MATRIX 10ML TOP ONE (08:27)
--- NOTE | 2020-10-16 08:48 | Operative Report ---
Post Operative Report Pre & Post Diagnosis Operation Date: 10/16/20 07:45 Pre-Op Diagnosis: Sacroilitis Post-Op Diagnosis: Sacroilitis I identified the patient and participated in the time-out.: Yes Procedure Operation Date: 10/16/20 07:45 Actual Procedures #1 open left sacroiliac joint fusion. #2 placement 25 mm bony allograft filled with infuse collagen sponge in the left SI joint. #3 placement of 2 percutaneous globus YUAN-coated slotted SI joint screws filled with infuse and local autograft. Surgeon J Luis Schafer, DO Nurse Ob Juan Carlos Baumann Estimated Blood Loss 20 Findings See Below The patient is 5 foot 4 inches tall weighing over 125 kg with a BMI in excess of 47. The patient's body habitus did create significant technical difficulty adding at least 50% increase to the operative time. Specimens None Indications This is a 79-year-old female well-known to me the presents with chronic persistent sacroiliitis. After failing course of nonoperative care she is here for surgical invention. Description of Procedure Patient was met with identified informed consent obtained. Patient was then taken to the operative suite underwent an patient placed in a prone position Chivo table with chest padded bolsters. The left upper buttock was then prepped and draped in a sterile fashion. The assistance of fluoroscopy identified the left SI joint. I created an incision directly over the joint expose the joint placed a joint finder within the joint followed by a working cannula. I then curetted out the joint and placed a 25 mm bony allograft with infuse collagen sponge directly in the joint. After this was tapped into place I created a second incision along the left upper buttock in line with the posterior sacral slope. A guidewire was then inserted through the incision and using inlet outlet and lateral views the guidewire was placed across the proximal portion of the SI joint. Then placed dilators over the wire followed by working cannula drilled across the joint and placed a 50 mm YUAN-coated slotted screw filled with local autograft and infuse collagen sponge. Demonstrated excellent alignment and purchase. A second screw was placed in similar fashion using an outrigger guide. The screw was 45 mm in length YUAN-coated slotted filled with local autograft and infuse collagen sponge. It also had excellent alignment and purchase. The incisions were then copiously irrigated closed with subcutaneous Vicryl and 4 Monocryl for final skin closure. Steri-Strip sterile dressings placed. Patient will continue PACU stable condition. Please note Juan Carlos record was present at the entire procedure involved the patient positioning complex portions of the surgery and final skin closure. I attest to the content of the Intraoperative Record and any orders documented therein. Any exceptions are noted below.
--- NOTE | 2020-10-16 09:16 | Fluoroscopy Report ---
FL sacrum HISTORY: 79 years-old Female SIJ FUSION STATUS post fusion of the SI joints COMPARISON: CT pelvis 07/23/2020 TECHNIQUE: 4 spot fluoroscopic images of the lumbar spine were obtained utilizing 116.1 seconds fluor oscopy time FINDINGS: SI joint bolts are noted in what is labeled the left SI joint. Posterior interbody chris and screw fusi on hardware with discectomy changes of the lumbar spine. Hardware appears intact. No definite unexpec aime opaque foreign body. IMPRESSION: Fluoroscopic assistance as above. ACT 112: Negative or not required by law. The above report was generated using voice recognition software. It may contain grammatical, syntax o r spelling errors. Electronically signed by: Derrick Noyola M.D. 10/16/2020 9:14 AM
[2020-10-16] MEDS ORDERED: DO NOT ADMINISTER FLU VACCINE PRN (10:13)
[2020-10-16] MEDS ORDERED: traMADol HCL 50 MG TABLET PO PRN (10:13)
[2020-10-16] MEDS ORDERED: glipiZIDE 5 MG TAB PO SCH (10:13)
[2020-10-16] MEDS ORDERED: DO NOT ADMINISTER PNEUMOCOCCAL VACCINE PRN (10:13)
[2020-10-16] MEDS ORDERED: ACETAMINOPHEN 1,000 MG/100 ML VIAL IV PRN (10:13)
[2020-10-16] MEDS ORDERED: METOCLOPRAMIDE HCL INJ 5 MG/ML 2 ML VIAL IV PRN (10:13)
[2020-10-16] MEDS ORDERED: LORazepam 0.5 MG TAB PO PRN (10:13)
[2020-10-16] MEDS ORDERED: oxyCODONE HCL IR 5 MG TAB (IMMEDIATE RELEASE) PO PRN (10:13)
[2020-10-16] MEDS ORDERED: FAMOTIDINE 20 MG TAB PO PRN (10:13)
[2020-10-16] MEDS ORDERED: ALUMINUM/MAGNESIUM SUSP 30 ML UDC PO PRN (10:13)
[2020-10-16] MEDS ORDERED: bisacodyL 10 MG SUPP PR PRN (10:13)
[2020-10-16] MEDS ORDERED: hydrOXYzine HCl 25 MG TAB PO PRN (10:13)
[2020-10-16] MEDS ORDERED: SOD PHOSPHATE/SOD BIPHOSPHATE ENEMA 132 ML BTL PR PRN (10:13)
[2020-10-16] MEDS ORDERED: SODIUM CHLORIDE 0.9% 1000ML 1,000 ML IV SCH (10:13)
[2020-10-16] MEDS ORDERED: MAGNESIUM HYDROXIDE SUSP 30 ML UDC PO PRN (10:13)
[2020-10-16] MEDS ORDERED: diphenhydrAMINE Capsule 25 MG CAP PO PRN (10:13)
[2020-10-16] MEDS ORDERED: LORazepam 0.5 MG/1 ML VIAL IV PRN (10:13)
[2020-10-16] MEDS ORDERED: ONDANSETRON 4 MG OD TAB PO PRN (10:13)
[2020-10-16] MEDS ORDERED: PROMETHAZINE HCL 12.5 MG in SODIUM CHLORIDE 0.9% 50 ML IV PRN (10:13)
[2020-10-16] MEDS ORDERED: NALOXONE HCL 0.4 MG/1 ML VIAL/CARP IV PRN (10:13)
[2020-10-16] MEDS ORDERED: HYDROmorphone INJ 0.5 MG/0.5 ML SYR IV PRN (10:13)
[2020-10-16] MEDS ORDERED: PHARMACY GLYCEMIC MGMT CONSULT PRN (10:38)
[2020-10-16] MEDS ORDERED: GLUCOSE 10 TABS/TUBE PO PRN (10:45)
[2020-10-16] MEDS ORDERED: CARBOHYDRATES FOR HYPOGLYCEMIA PO PRN (10:45)
[2020-10-16] MEDS ORDERED: GLUCOSE 40% GEL 15 GM TUBE PO PRN (10:45)
[2020-10-16] MEDS ORDERED: GLUCAGON FOR INJ 1 MG VIAL IM PRN (10:45)
[2020-10-16] MEDS ORDERED: DEXTROSE 50% 50 ML SYRINGE IV PRN (10:45)
[2020-10-16] MEDS ORDERED: INSULIN GLARGINE SOLOSTAR 100 UNITS/ML 3 ML PEN SC ONE (11:00)
[2020-10-16] MEDS: INSULIN ASPART 100 UNITS/ML 3 ML PEN SC SCH ×4 (11:18→21:43)
[2020-10-16] MEDS: FELODIPINE 5 MG TABCR PO SCH (11:20)
[2020-10-16] MEDS: POTASSIUM CHLORIDE CRTAB 20 MEQ TABCR PO SCH (11:21)
[2020-10-16] MEDS: FUROSEMIDE 40 MG TAB PO SCH (11:21)
--- NOTE | 2020-10-16 11:27 | Hospitalist Consultation ---
Date of Consultation October 16, 2020 Assessment & Plan (1) Sacroiliitis: * POD#0 s/p #1 open left sacroiliac joint fusion. #2 placement 25 mm bony allograft filled with infuse collagen sponge in the left SI joint. #3 placement of 2 percutaneous globus YUAN-coated slotted SI joint screws filled w ith infuse and local autograft. EBL 20cc. 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 continue lasix 40mg daily with potassium supplementation (4) Primary hypercoagulable state: * On Coumadin daily -- 6mg daily except 3mg on * Follows with coag clinic and was on Lovenox bridge -- to resume 24 hours post- operatively per outpatient note and will need follow up with them at discharge * INR subtherapeutic at 1.0 but will hold off on further anticoagulation immediately post-op * INR in AM (5) Recurrent deep vein thrombosis (DVT): * Coumadin/Lovenox as above (6) Obstructive sleep apnea: * to bring her CPAP tonight (7) Hypertension: * CHronic * Continue felodipine 10mg daily, lasix * Monitor (8) Hyperlipidemia: Pravastatin 40mg HS DVT Proph * SCDs * Lovenox/Coumadin restart once ok with primary Thank you for allowing hospitalist service to participate in the care of Mrs. Mitchell. Hospitalist service will follow along. Supervising Physician Co-Signing Physician Notes Patient was seen and examined independently I discussed the case with Raisa Cherry PAC I reviewed pertinent past medical social family history and also the plan of care and agree with the plan of care. Patient seen postoperatively after left sacroiliac joint fusion with application of bone morphogenic protein patient is doing well she has no complaints or problems. As mentioned in Ms. Sotomayor's note her was bringing in her noninvasive positive pressure ventilation for this evening continue medical treatment of her diabetes and her hypercoagulable state having history of PE and DVT. Resume full anticoagulation 24 hours postoperatively as per instructions from the coagulation clinic. Patient is previously bridged her anticoagulation with Lovenox and to warfarin she is comfortable doing this and will do this again The patient appeared well slightly sleepy postoperatively Vital signs as documented. Lungs are clear to auscultation and appear unlabored Cardiac exam, Rhythm is regular.. No murmurs, rubs or gallops. Abdominal exam reveals normal bowel sounds, soft non tender, no masses Extremities are trace edematous and both pedal pulses are normal. Neurologic exam is alert and oriented, no focal loss of strength or sensation Psychologically is without concerns for anxiety or depression. Any exceptions will be noted below History of Present Illness Reason for Consultation: medical management Requesting Physician: Dr Schafer Attending Physician: J Luis Schafer, DO History of Present Illness 79 year old female with PMHx significant for DM II (insulin dependent), HTN, HLD, JOSE, PE/DVT and following with coagulation clinic, presented for LEFT sacroiliac joint fusion with application of bone protein with Dr. Schafer. Patient has been dealing with the pain for the past three years. Doing well post-operatively. No pain reported. Eating/drinking without difficulty. Has not yet been out of bed. Unsure how long she will be in the hospital. Has a history of PE in and is on coumadin daily (6mg everyday except where she takes 3mg) and was bridged with Lovenox per Dr. Negron and the coagulation clinic. Has her CPAP in 's car and he is bringing up post-operatively and she will utilize tonight. No fever, chills, chest pain, shortness of breath, abdominal pain, nausea, vomiting, dysuria at this time. Allergies Allergy/AdvReac Type Severity Reaction Status Date / Time No Known Allergies Allergy Verified 10/16/20 06:36 Home Medications Medication Instructions Recorded Confirmed Type cholecalciferol (vitamin D3) 2,000 unit PO QAM 02/08/19 10/16/20 History [Vitamin D3] cyanocobalamin (vitamin B-12) 500 mcg PO QAM 02/08/19 10/16/20 History [Vitamin B-12] blood-glucose meter #1 ea 07/23/19 10/09/20 History lancets 33 gauge #100 ea 07/23/19 10/09/20 History Christoaglsuyapa Liang U-100 Insulin 100 16 units SUBCUT QAM #15 ml NS 12/14/19 10/16/20 Rx unit/mL (3 mL) subcutaneous BD Ultra-Fine Mahsa Pen Needle 32 #100 ea NS 01/20/20 10/09/20 Rx gauge x 5/32" metformin 500 mg tablet,extended 1,000 mg PO BID #360 tab 03/09/20 10/16/20 Rx release 24hr potassium chloride 20 mEq 20 meq PO QAM #90 tab 05/19/20 10/16/20 Rx tablet,extended release pravastatin 40 mg tablet 40 mg PO HS #90 tab 05/30/20 10/16/20 Rx OneTouch Verio test strips #300 ea NS 06/29/20 10/09/20 Rx felodipine 10 mg PO QAM 07/23/20 10/16/20 History furosemide 40 mg PO QAM 07/23/20 10/16/20 History amoxicillin 500 mg tablet 2,000 mg PO DIRECTED PRN #4 tab 09/27/20 10/16/20 Rx dapagliflozin [Farxiga] 5 mg PO QAM 09/27/20 10/16/20 History glipizide 10 mg PO BID 09/27/20 10/16/20 History enoxaparin 40 mg/0.4 mL 40 mg SUBCUT Q24H #10 syr 10/02/20 10/16/20 Rx subcutaneous syringe warfarin 3 mg tablet See Rx Instructions PO .COMPLEX 10/02/20 10/16/20 History warfarin 6 mg tablet See Rx Instructions PO .COMPLEX 10/02/20 10/16/20 History tab oxycodone 5 mg PO Q6H PRN #30 tab 10/16/20 Rx tramadol 50 mg PO Q6H PRN #30 tab 10/16/20 Rx Patient History Medical History Chronic back pain Compression fracture of L3 lumbar vertebra hx Degenerative disc disease Diabetes mellitus, type 2 IDDM History of pulmonary embolism 1991 on WARFARIN. No problems since. History of rhinophyma nose Hx of basal cell carcinoma Hx of deep venous thrombosis 1991. no problems currently. taking coumadin daily Hyperlipidemia Hypertension Left hip pain Lumbar stenosis Myofascial pain Nausea and vomiting after administration of anesthetic agent Obstructive sleep apnea CPAP, pt reports she is very diligent and compliant. On anticoagulant therapy Surgical History History of appendectomy History of carpal tunnel release of both wrists History of colonoscopy History of knee replacement procedure of left knee History of knee replacement procedure of right knee History of tonsillectomy Hx of basal cell carcinoma excision Hx of cholecystectomy Hx of hernia repair ventral hernia repair Hx of squamous cell carcinoma excision Hx of total hysterectomy (~1970) with BSO S/P epidural steroid injection S/P laminectomy S/P lumbar fusion Status post uvulopalatopharyngoplasty Family History Father Diabetes Unknown COPD (chronic obstructive pulmonary disease) Coronary heart disease Type 2 diabetes mellitus Brother Diabetes Sister Myocardial infarction Cardiac disorder Systemic lupus erythematosus Denies family history of Ovarian cancer Prostate cancer Breast cancer Colorectal cancer Social History Smoking Status: Never smoker Second Hand Exposure: No; Do You Dip or Chew Tobacco: No; Tobacco Cessation Education Requested by Patient: No Hx Alcohol Use: No Hx Substance Use: No Preferred Language: Icelandic Communication Ability: Effective Visual Impairment: Limited Hearing Ability: Normal Javascript Front End 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 Required: No Beliefs That Will Affect Care: None marital status: Current Living Situation: Spouse current occupational status: retired Other Information That Helps Us Care for You: No Feels Safe at Home: Yes Safety Concerns: Feels Safe At This Time Childhood Exposure to Second-Hand Smoke: Yes caffeine: Yes Dental Care, Regularly: Yes Physical Activity Frequency: 1-2 Times per Week Physical Activity Frequency Comment: walk Seatbelt Use: always Sunscreen Use: Yes Assistive Devices: CPAP and Glasses Review of Systems Review of Systems: All systems reviewed & are unremarkable except as noted in HPI & below Physical Exam Constitutional: well developed, well nourished, + obese and comfortable; no acute distress Eyes: + anicteric sclerae and PERRL Neck: normal visual inspection and trachea midline; no tracheal deviation Respiratory: normal respiratory effort, lungs clear to auscultation Auscultation: + diminished lung sounds Cardiovascular: RRR, no murmur, no edema Extremities: + edema (chronic lymphedema) Gastrointestinal (Abdomen): normal bowel sounds, soft, nontender, no hepatosplenomegaly Musculoskeletal: dressing R hip c/d/i NVI pulses palpable bilaterally Skin: no rashes, warm and dry Neurologic: PERRL, EOMI, accommodation nl, no face palsy, no dysarthria Psychiatric: Orientation: alert and oriented x 3 Genitourinary: NO HOPKINS Results & Data Results & Data ([facility]) Vital Signs (Past 12 Hours) Vital Signs Temp Pulse Pulse Resp BP Pulse Ox 10/16/20 11:01 36.3 C L 67 16 166/76 H 96 10/16/20 10:25 36.4 C L 64 16 167/70 H 94 10/16/20 09:50 70 17 145/63 H 93 10/16/20 09:40 36.2 C L 68 17 150/67 H 93 10/16/20 09:30 77 13 154/72 H 97 10/16/20 09:20 71 12 157/64 H 98 10/16/20 09:10 36 C L 89 17 171/83 H 95 10/16/20 06:51 36.7 C 95 H 18 157/69 H 97 Laboratory Results 10/16/20 10/16/20 10/16/20 Range/Units 10:33 09:13 06:28 PT 10.5 (9.0-12.0) Seconds INR 1.0 (0.9-1.1) APTT 25.1 (21.0-31.0) Seconds PTT Ratio 1.0 POC Glucose 189 H 181 H (70-99) mg/dl 10/16/20 Range/Units 06:19 PT (9.0-12.0) Seconds INR (0.9-1.1) APTT (21.0-31.0) Seconds PTT Ratio POC Glucose 200 H (70-99) mg/dl PG Care Time/CCT Total # of Minutes Spent Total Time Spent with Patient: Total time spent is greater than 50% in coordination of care (as documented) at patient's floor/unit and/or counseling patient: Coding Level of Care Code 77382 Inpt Consult Level 3 Diagnoses Sacroiliitis M46.1 Diabetic peripheral neuropathy associated with type 2 diabetes mellitus E11.42 Lymphedema I89.0 Primary hypercoagulable state D68.59 Recurrent deep vein thrombosis (DVT) I82.409 Obstructive sleep apnea G47.33 Hypertension I10 Hyperlipidemia E78.5
[2020-10-16] MEDS: ACETAMINOPHEN 500 MG TAB PO PRN (13:49)
--- NOTE | 2020-10-16 14:27 | Anesthesiology Progress Note ---
Date of Service October 16, 2020 Anesthesia Post Procedure Vital Signs Vital Signs: Temp Pulse Pulse Resp BP Pulse Ox 10/16/20 13:00 36.3 C L 79 18 166/82 H 99 10/16/20 12:00 36.6 C 68 18 166/75 H 97 10/16/20 11:01 36.3 C L 67 16 166/76 H 96 10/16/20 10:25 36.4 C L 64 16 167/70 H 94 10/16/20 09:50 70 17 145/63 H 93 10/16/20 09:40 36.2 C L 68 17 150/67 H 93 10/16/20 09:30 77 13 154/72 H 97 10/16/20 09:20 71 12 157/64 H 98 10/16/20 09:10 36 C L 89 17 171/83 H 95 10/16/20 06:51 36.7 C 95 H 18 157/69 H 97 Pain Intensity Lower Back: Pain Intensity: 8 Transfer of Care Handoff Completed per policy Notes Mental Status: alert / awake / arousable and participated in evaluation Patient Amnestic to Procedure: Yes Nausea / Vomiting: adequately controlled Pain: adequately controlled Airway Patency, RR, SpO2: stable & adequate BP & HR: stable & adequate Hydration State: stable & adequate Anesthetic Complications: no major complications apparent and Pt Satisfied with anesthetic care
--- NOTE | 2020-10-16 14:45 | Pharmacy Report ---
Pharmacy Glycemic Short Note 2 - Date of Service October 16, 2020 - Glycemic Short BSG Results (Last 24 hours): 10/16/20 10/16/20 10/16/20 06:19 09:13 10:33 POC Glucose 200 H 181 H 189 H 10/16/20 11:59 POC Glucose 172 H OUTPATIENT ANTIDIABETIC REGIMEN: * glipizide 10 mg BID * Farxiga 5 mg daily * Basaglar 16 units daily * metformin 1000 mg BID * HbA1C = 6.2% ASSESSMENT: * Ms Mitchell is a 79 y/o F with a PMH of T2DM on insulin plus three oral agents with excellent control. She underwent spinal surgery today. * Patient took Lantus 8 units this morning. * No steroids given per MAR. * Give additional 8 units of Lantus to make home dose of 16 units. * Started with weight-based stress of 3 Novolog since patient was slightly basal deficient. Will continue tighter Novolog coverage as it appears (based upon home regimen) that patient may be carbohydrate sensitive. * Hold home oral medications. Can resume metformin tomorrow if PO intake and renal function okay. PLAN FOR INPATIENT GLYCEMIC CONTROL: * Hold outpatient oral diabetes medications * Basal insulin * Lantus 16 units SQ daily * Bolus insulin * NovoLog per scale ACHS or Q6hrs while NPO * Goal Range: Low 110 mg/dL - High 140 mg/dL * Correction Factor: 25 mg/dL/unit * Nutritional / Prandial insulin per carb ratio of 1 unit per 7 grams CHO consumed PLAN FOR DISCHARGE: * HbA1C is well controlled * current HbA1C = 6.2% * Target HbA1C <7% * Continue home regimen as long as patient does not have significant hypoglycemia at home.
[2020-10-16] MEDS: ceFAZolin 2000MG 2,000 MG/15 ML SYR IV SCH (17:22)
[2020-10-16] MEDS ORDERED: PRAVASTATIN SOD 40 MG TAB PO SCH (21:00)
[2020-10-16] MEDS ORDERED: DOCUSATE SODIUM/SENNA 50/8.6MG TAB PO SCH (21:00)
[2020-10-17] MEDS: ceFAZolin 2000MG 2,000 MG/15 ML SYR IV SCH (00:25)
[2020-10-17] MEDS: ACETAMINOPHEN 500 MG TAB PO PRN ×2 (00:33→08:35)
[2020-10-17] MEDS ORDERED: POLYETHYLENE (MIRALAX) 17 GM PACK PO SCH (06:00)
[2020-10-17 06:53] LABS: Hematocrit (blood only) 38.8 % (37-47); Hemoglobin 12.7 g/dL (12.0-16.0); Mean Corpuscular Hemoglobin 31.1 pg (25-34); Mean Corpuscular Hgb Conc 32.7 g/dL (32-36); Mean Corpuscular Volume 94.9 fL (80-100); Mean Platelet Volume 10.1 fL (7.4-10.4); Platelet Count 291 K/uL (130-400); RDW Coefficient of Variation 13.9 % (11.5-14.5); RDW Standard Deviation 48.5 fL (36.4-46.3); Red Blood Count 4.09 M/uL (4.2-5.4); White Blood Count 6.89 K/uL (4.8-10.8)
[2020-10-17 07:07] LABS: Partial Thromboplastin Ratio 0.9; Partial Thromboplastin Time 24.5 Seconds (21.0-31.0); Prothrombin Time 10.2 Seconds (9.0-12.0)
[2020-10-17 07:20] LABS: BUN Creatinine Ratio 16.8 (10-20); Calcium 9.3 mg/dl (8.5-10.1); Creatinine Clr Calc Pharmacy 58.9 ml/min; Est GFR (African American) 60.3; Potassium 4.4 mmol/L (3.5-5.1)
--- NOTE | 2020-10-17 08:06 | Hospitalist Progress Note ---
Date of Service October 17, 2020 Assessment & Plan (1) Sacroiliitis: * POD#1 s/p #1 open left sacroiliac joint fusion. #2 placement 25 mm bony allograft filled with infuse collagen sponge in the left SI joint. #3 placement of 2 percutaneous globus YUAN-coated slotted SI joint screws filled with infuse and local autograft. EBL 20cc. * PT/OT/pain management/bowel regimen per primary service * H/h stable 12.7/38.8 from -- acute blood loss from surgery as well as continuous IVF through last evening, currently discontinued * Lovenox bridge for recurrent DVT/PE and got last Lovenox injection morning of 10/15 -- to resume 24 hours post-operatively if ok with primary service -> Will check with Dr. Schafer about starting today. * --> Per outpatient notes, patient to start lovenox 40mg SQ and loading dose coumadin 9mg x 2 days then back to her usual dosing. Of note, she states she takes 3mg only on , however notes state she is to be taking that dose on Mondays and . Will discuss with patient -- she states she is to take the 3mg friday and for next couple weeks. 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 continue lasix 40mg daily with potassium supplementation (4) Primary hypercoagulable state: * On Coumadin daily -- 6mg daily except 3mg on * Follows with coag clinic and was on Lovenox bridge -- to resume 24 hours post- operatively per outpatient note and will need follow up with them at discharge * INR subtherapeutic at 1.0 but will hold off on further anticoagulation immediately post-op * See above regarding resuming anticoagulation (5) Recurrent deep vein thrombosis (DVT): * Coumadin/Lovenox as above (6) Obstructive sleep apnea: * Home CPAP (7) Hypertension: * CHronic * Continue felodipine 10mg daily, lasix * BP 141/76 * Monitor (8) Hyperlipidemia: Pravastatin 40mg HS DVT Proph * SCDs * Lovenox/Coumadin restart once ok with primary -- plans for restart today Thank you for allowing hospitalist service to participate in the care of Mrs. Mitchell. Hospitalist service will sign off. Admission and Anticipated Discharge Date Admission Date: October 16, 2020 Subjective Patient evaluated this morning. Doing well. Pain controlled. Plans for discharge after she works with therapy. Passing gas but no BM yet. Plans on home health obtaining INRs in acute recovery phase. Will check with CM to arrange prior to d/c. No fever, chills, chest pain, shortness of breath, abd pain, nausea, vomiting or dysuria. Review of Systems Review of Systems: All systems reviewed & are unremarkable except as noted in HPI & below Physical Exam Constitutional: well developed, well nourished, + obese and comfortable; no acute distress Eyes: + anicteric sclerae and PERRL Neck: normal visual inspection and trachea midline; no tracheal deviation Respiratory: normal respiratory effort, lungs clear to auscultation Auscultation: + diminished lung sounds Cardiovascular: RRR, no murmur, no edema Extremities: + edema (chronic lymphedema) Gastrointestinal (Abdomen): normal bowel sounds, soft, nontender, no hepatosplenomegaly Musculoskeletal: L hip dressing c/d/i NVI pulses palpable bilaterally Skin: no rashes, warm and dry Neurologic: PERRL, EOMI, accommodation nl, no face palsy, no dysarthria Psychiatric: Orientation: alert and oriented x 3 Lymphatic: no cervical or axillary lymphadenopathy Results & Data Results & Data ([facility]) Vital Signs (Past 12 Hours) Vital Signs Temp Pulse Resp BP BP Pulse Ox 10/17/20 07:00 37.1 C 68 16 141/76 H 97 10/17/20 02:39 36.4 C L 67 16 143/76 H 98 10/16/20 22:41 36.4 C L 61 16 133/73 97 Laboratory Results 10/17/20 10/17/20 10/17/20 Range/Units 07:57 06:29 06:29 WBC (4.8-10.8) K/uL RBC (4.2-5.4) M/uL Hgb (12.0-16.0) g/dL Hct (37-47) % MCV (80-100) fL MCH (25-34) pg MCHC (32-36) g/dL RDW Std Deviation (36.4-46.3) fL RDW Coeff of Radha (11.5-14.5) % Plt Count (130-400) K/uL MPV (7.4-10.4) fL PT 10.2 (9.0-12.0) Seconds INR 1.0 (0.9-1.1) APTT 24.5 (21.0-31.0) Seconds PTT Ratio 0.9 Sodium 139 (136-145) mmol/L Potassium 4.4 (3.5-5.1) mmol/L Chloride 105 (98-107) mmol/L Carbon Dioxide 28 (21-32) mmol/L Anion Gap 7.0 (3-11) BUN 17 (7-18) mg/dl Creatinine 1.03 (0.6-1.2) mg/dl Est Cr Clr Drug Dosing 58.9 ml/min Est GFR ( Amer) 60.3 Est GFR (Non-Af Amer) 52.0 BUN/Creatinine Ratio 16.8 (10-20) Glucose 199 H (70-99) mg/dl POC Glucose 219 H (70-99) mg/dl Calcium 9.3 (8.5-10.1) mg/dl 10/17/20 10/16/20 10/16/20 Range/Units 06:29 20:37 17:18 WBC 6.89 (4.8-10.8) K/uL RBC 4.09 L (4.2-5.4) M/uL Hgb 12.7 (12.0-16.0) g/dL Hct 38.8 (37-47) % MCV 94.9 (80-100) fL MCH 31.1 (25-34) pg MCHC 32.7 (32-36) g/dL RDW Std Deviation 48.5 H (36.4-46.3) fL RDW Coeff of Radha 13.9 (11.5-14.5) % Plt Count 291 (130-400) K/uL MPV 10.1 (7.4-10.4) fL PT (9.0-12.0) Seconds INR (0.9-1.1) APTT (21.0-31.0) Seconds PTT Ratio Sodium (136-145) mmol/L Potassium (3.5-5.1) mmol/L Chloride (98-107) mmol/L Carbon Dioxide (21-32) mmol/L Anion Gap (3-11) BUN (7-18) mg/dl Creatinine (0.6-1.2) mg/dl Est Cr Clr Drug Dosing ml/min Est GFR ( Amer) Est GFR (Non-Af Amer) BUN/Creatinine Ratio (10-20) Glucose (70-99) mg/dl POC Glucose 131 H 160 H (70-99) mg/dl Calcium (8.5-10.1) mg/dl 10/16/20 10/16/20 10/16/20 Range/Units 11:59 10:33 09:13 WBC (4.8-10.8) K/uL RBC (4.2-5.4) M/uL Hgb (12.0-16.0) g/dL Hct (37-47) % MCV (80-100) fL MCH (25-34) pg MCHC (32-36) g/dL RDW Std Deviation (36.4-46.3) fL RDW Coeff of Radha (11.5-14.5) % Plt Count (130-400) K/uL MPV (7.4-10.4) fL PT (9.0-12.0) Seconds INR (0.9-1.1) APTT (21.0-31.0) Seconds PTT Ratio Sodium (136-145) mmol/L Potassium (3.5-5.1) mmol/L Chloride (98-107) mmol/L Carbon Dioxide (21-32) mmol/L Anion Gap (3-11) BUN (7-18) mg/dl Creatinine (0.6-1.2) mg/dl Est Cr Clr Drug Dosing ml/min Est GFR ( Amer) Est GFR (Non-Af Amer) BUN/Creatinine Ratio (10-20) Glucose (70-99) mg/dl POC Glucose 172 H 189 H 181 H (70-99) mg/dl Calcium (8.5-10.1) mg/dl PG Care Time/CCT Total # of Minutes Spent Total Time Spent with Patient: Total time spent is greater than 50% in coordination of care (as documented) at patient's floor/unit and/or counseling patient: Coding Level of Care Code 36953 Subseq Hosp Care Lvl 2 Diagnoses Sacroiliitis M46.1 Diabetic peripheral neuropathy associated with type 2 diabetes mellitus E11.42 Lymphedema I89.0 Primary hypercoagulable state D68.59 Recurrent deep vein thrombosis (DVT) I82.409 Obstructive sleep apnea G47.33 Hypertension I10 Hyperlipidemia E78.5
[2020-10-17] MEDS: FUROSEMIDE 40 MG TAB PO SCH (08:14)
--- NOTE | 2020-10-17 08:26 | Discharge Summary ---
Date of Service October 17, 2020 Admission HPI Per Admitting Provider This is a 71-year-old female known to . Presents with chronic persistent sacroiliitis. After failing course of nonoperative care is here for surgical invention. Principal Diagnosis Sacroiliitis Discharge Data Allergies Allergy/AdvReac Type Severity Reaction Status Date / Time No Known Allergies Allergy Verified 10/16/20 06:36 Consultations 10/16/20 10:13 Consult Hospitalist Routine Procedures Performed Operation Date: 10/16/20 07:45 Actual Procedures p Left Sacroiliac Joint Fusion, with Application of Bone Morphogenetic Protein(Left) - J Luis Schafer DO Ordered Studies 10/16/20 07:45 FL fluoroscopy <1hr Routine FL sacrum Routine Hospital Course (1) Sacroiliitis: Patient underwent left SI joint fusion tolerated so was taken to orthopedic for postop labor postop day #1 she was comfortable was able ambulate with a walker. Neurologically intact. Pain well controlled. Socially discharged home. Discharge orders instructions from the chart for further review. Total Time Total Time Spent Total Time Spent (In Minutes): 20 minutes Discharge Plan Discharge Items Patient Disposition: Home - Self-Care Reason For Visit: SI Joint Dysfunction Discharge Diagnosis: Sacroiliitis Activity: Per Instructions section Lifting: No more than 5 pounds Bathing: May shower/bathe in 3 days Weightbearing: Left toe touch Non-emergency contact: Primary Care Provider Call non-emergency contact if: you have any medication questions Follow-up/Referrals: Roverto Augustine MD [Primary Care Provider] - Diet: Regular Addtl Attending Provider Instructions: Please use walker to ambulate and maintain toe-touch weightbearing to left lower extremity. Follow-up in 2 weeks as scheduled. Pending Studies at Discharge: No Stand-Alone Forms: My [facility] [email or web address], Smoking Cessation Medications and DC Order Prescriptions: New oxycodone 5 mg tablet 5 mg PO Q6H PRN (Reason: pain, severe) Qty: 30 RF: 0 tramadol 50 mg tablet 50 mg PO Q6H PRN (Reason: pain, moderate) Qty: 30 RF: 0 Continued warfarin [Jantoven] 6 mg tablet See Rx Instructions PO .COMPLEX RF: 0 Basaglar KwikPen U-100 Insulin 100 unit/mL (3 mL) insulin pen 16 units SUBCUT QAM Qty: 15 RF: 5 (DME) pen needle, diabetic [BD Ultra-Fine Mahsa Pen Needle] 32 gauge x 5/32" needle See Rx Instructions .ROUTE .MEDSUPPLY Qty: 100 RF: 3 metformin 500 mg tablet extended release 24hr 1,000 mg PO BID Qty: 360 RF: 3 potassium chloride [K-Tab] 20 mEq tablet extended release 20 meq PO QAM Qty: 90 RF: 3 pravastatin 40 mg tablet 40 mg PO HS Qty: 90 RF: 3 (DME) OneTouch Verio test strips Strip See Rx Instructions .ROUTE .MEDSUPPLY Qty: 300 RF: 3 amoxicillin 500 mg tablet 2,000 mg PO DIRECTED PRN (Reason: PRIOR TO DENTAL APPOINMENTS) Qty: 4 RF: 3 enoxaparin 40 mg/0.4 mL syringe 40 mg subcut Q24H Qty: 10 RF: 0 (DME) lancets [One On One AdsTouch Delica Lancets] 33 gauge misc See Rx Instructions .ROUTE .MEDSUPPLY Qty: 100 RF: 0 (DME) blood-glucose meter [OneTouch Verio Flex meter] misc See Rx Instructions .ROUTE .MEDSUPPLY Qty: 1 RF: 0 cholecalciferol (vitamin D3) [Vitamin D3] 2,000 unit Tablet 2,000 unit PO QAM RF: 0 cyanocobalamin (vitamin B-12) [Vitamin B-12] 500 mcg Tablet 500 mcg PO QAM RF: 0 glipizide 5 mg tablet 10 mg PO BID RF: 0 Farxiga 5 mg tablet 5 mg PO QAM RF: 0 furosemide 40 mg tablet 40 mg PO QAM RF: 0 felodipine 10 mg tablet extended release 24 hr 10 mg PO QAM RF: 0 warfarin [Jantoven] 3 mg tablet See Rx Instructions PO .COMPLEX RF: 0 Discharge Orders: Discharge Order (Routine); Ordered 10/17/20 Ordered By: J Luis Pena/Other Patient Handouts: Managing Type 2 Diabetes Admission Data Admit Date/Time: 10/16/20 09:16 Attending Provider: J Luis Schafer Admit Provider: J Luis Schafer Primary Care Provider: Roverto Augustine Other Providers: Jose Xie Other Interventions: Discharge Summary Assessment (RN) Last Done: 10/17/20 08:11
[2020-10-17] MEDS: FELODIPINE 5 MG TABCR PO SCH (08:34)
[2020-10-17] MEDS: POTASSIUM CHLORIDE CRTAB 20 MEQ TABCR PO SCH (08:35)
[2020-10-17] MEDS: INSULIN ASPART 100 UNITS/ML 3 ML PEN SC SCH (08:38)
[2020-10-17] MEDS ORDERED: INSULIN GLARGINE SOLOSTAR 100 UNITS/ML 3 ML PEN SC SCH ×2 (09:00)
== END 2020-10-17 11:40 | disposition home health service (06) | DRG 460 ==
LOC: ASU 05:55 → 3E 09:16

== ENCOUNTER 2023-12-05 10:03 | Observation (INO) ==
--- NOTE | 2023-10-16 11:21 | PAT Medication Instructions ---
Medication Instructions Date of Service October 16, 2023 Home Medications Medication Instructions Recorded CPAP Supplies #1 ea 01/18/21 glipizide 5 mg tablet 5 mg PO BID #180 tabs 04/24/23 potassium chloride 20 mEq 20 meq PO QAM #90 tabs 05/12/23 tablet,extended release (K-Tab) felodipine 10 mg tablet,extended 10 mg PO QAM #90 tabs 05/27/23 release 24 hr furosemide 40 mg tablet 40 mg PO QAM #90 tabs 05/27/23 pravastatin 40 mg tablet 40 mg PO HS #90 tabs 05/27/23 metformin 500 mg tablet,extended 1,000 mg (2 x 500 mg) PO BID #360 06/24/23 release 24hr (osmotic) tabs OneTouch Verio test strips (blood #300 ea 07/07/23 sugar diagnostic) warfarin 3 mg tablet See Rx Instructions PO UD #80 tabs 09/11/23 warfarin 6 mg tablet See Rx Instructions PO UD #75 tabs 09/15/23 Medication List: cyanocobalamin (vitamin B-12) 500 mcg tablet (Vitamin B-12) 1,000 mcg PO QAM doxycycline hyclate 50 mg capsule 50 mg PO BID cholecalciferol (vitamin D3) 25 mcg (1,000 unit) capsule (Vitamin D3) 25 mcg PO QAM insulin glargine 100 unit/mL (3 mL) subcutaneous pen (Basaglar KwikPen U-100 Insulin) 20 unit subcut QAM acetaminophen 500 mg tablet 1,000 mg PO BID PRN Pain dapagliflozin propanediol 10 mg tablet (Farxiga) 10 mg PO QAM glipizide 5 mg tablet 5 mg PO BID potassium chloride 20 mEq tablet,extended release (K-Tab) 20 meq PO QAM felodipine 10 mg tablet,extended release 24 hr 10 mg PO QAM furosemide 40 mg tablet 40 mg PO QAM pravastatin 40 mg tablet 40 mg PO HS metformin 500 mg tablet,extended release 24hr (osmotic) 1,000 mg (2 x 500 mg) PO BID warfarin 3-6 mg (per clinic dosing guidelines) MEDICATION INSTRUCTIONS: ASK your prescriber and surgeon warfarin 3-6 mg (per clinic dosing guidelines) DO NOT take the morning of surgery glipizide 5 mg tablet 5 mg PO BID metformin 500 mg tablet,extended release 24hr (osmotic) 1,000 mg (2 x 500 mg) PO BID furosemide 40 mg tablet 40 mg PO QAM cholecalciferol (vitamin D3) 25 mcg (1,000 unit) capsule (Vitamin D3) 25 mcg PO QAM cyanocobalamin (vitamin B-12) 500 mcg tablet (Vitamin B-12) 1,000 mcg PO QAM potassium chloride 20 mEq tablet,extended release (K-Tab) 20 meq PO QAM Take morning of surgery With a small sip of water, OTHERWISE NOTHING TO EAT OR DRINK AFTER MIDNIGHT: felodipine 10 mg tablet,extended release 24 hr 10 mg PO QAM doxycycline hyclate 50 mg capsule 50 mg PO BID acetaminophen 500 mg tablet 1,000 mg PO BID PRN Pain (if needed) Take evening before surgery glipizide 5 mg tablet 5 mg PO BID metformin 500 mg tablet,extended release 24hr (osmotic) 1,000 mg (2 x 500 mg) PO BID pravastatin 40 mg tablet 40 mg PO HS doxycycline hyclate 50 mg capsule 50 mg PO BID acetaminophen 500 mg tablet 1,000 mg PO BID PRN Pain (if needed) Insulin Dependent Diabetic Patients * Test your blood sugar the morning of surgery: * If Blood Sugar is GREATER THAN 150, take HALF of your regular dose of: insulin glargine 100 unit/mL (3 mL) subcutaneous pen (Basaglar KwikPen U-100 Insulin) 20 unit subcut QAM * If Blood Sugar is LESS THAN 150, DO NOT TAKE ANY: insulin glargine 100 unit/mL (3 mL) subcutaneous pen (Basaglar KwikPen U-100 Insulin) 20 unit subcut QAM Other Notes STOP TAKING 3 DAYS BEFORE SURGERY: dapagliflozin propanediol 10 mg tablet (Stephaniega) 10 mg PO QAM If you have any questions please call us at [phone] or [phone] or [phone] or [phone]
--- NOTE | 2023-11-05 14:01 | Anesthesiology Consultation ---
Date of Service November 05, 2023 Assessment & Plan (1) Encounter for pre-operative examination: Plan - check BSG and coags STAT am DOS. - spinal cord stimulator: patient aware to bring remote to hospital DOS. - Case discussed in detail with Dr. Rodriguez who advised that no further evaluation is needed. - Outpatient joint assessment: Patient is currently scheduled for inpatient pathway. If re-evaluated and patient/surgeon requests outpatient pathway, phil ent is not recommended candidate for outpatient joint program from anesthesia standpoint. Chart Review Chart Review: Acceptable Risk for Surgery and Patient seen in Pre Admission Testing Teaching & Discussion Pre-Anesthesia Teaching/Discussion Notes: Instructed NPO after midnight before surgery, except medications with 15 cc of water. Medication instructions provided according to the PAT guidelines. History Surgery Operation Date: 12/01/23 09:15 Proposed Procedures p Right Reverse Total Shoulder Arthroplasty - Yovanny Heard, Height/Weight Height: 5 ft 4 in Weight: 113.1 kg Allergies Allergy/AdvReac Type Severity Reaction Status Date / Time No Known Allergies Allergy Verified 10/22/23 08:44 Medications Home Medications Medication Instructions Recorded Confirmed Last Taken cyanocobalamin (vitamin B-12) 500 1,000 mcg PO QAM 02/08/19 10/31/23 1 Week Ago mcg tablet (Vitamin B-12) ~04/17/23 blood-glucose meter (OneTouch #1 ea 07/23/19 10/31/23 Unknown Verio Flex Meter) lancets 33 gauge (OneTouch Delica #100 ea 07/23/19 10/31/23 Unknown Lancets) CPAP Supplies #1 ea 01/18/21 10/31/23 Unknown doxycycline hyclate 50 mg capsule 50 mg PO BID 07/29/22 10/31/23 04/20/23 amoxicillin 500 mg capsule 2,000 mg PO UD PRN dental work 01/22/23 10/31/23 Unknown cholecalciferol (vitamin D3) 25 25 mcg PO QAM 01/22/23 10/31/23 1 Week Ago mcg (1,000 unit) capsule (Vitamin ~04/17/23 D3) insulin glargine 100 unit/mL (3 20 unit subcut QAM 01/22/23 10/31/23 08/12/23 07:00 mL) subcutaneous pen (Basaglar KwikPen U-100 Insulin) acetaminophen 500 mg tablet 1,000 mg PO BID PRN Pain 02/27/23 10/31/23 2 Weeks Ago ~04/10/23 dapagliflozin propanediol 10 mg 10 mg PO QAM 04/17/23 10/31/23 04/20/23 tablet (Farxiga) glipizide 5 mg tablet 5 mg PO BID #180 tabs 04/24/23 10/31/23 Unknown potassium chloride 20 mEq 20 meq PO QAM #90 tabs 05/12/23 10/31/23 Unknown tablet,extended release (K-Tab) felodipine 10 mg tablet,extended 10 mg PO QAM #90 tabs 05/27/23 10/31/23 Unknown release 24 hr furosemide 40 mg tablet 40 mg PO QAM #90 tabs 05/27/23 10/31/23 Unknown pravastatin 40 mg tablet 40 mg PO HS #90 tabs 05/27/23 10/31/23 Unknown metformin 500 mg tablet,extended 1,000 mg (2 x 500 mg) PO BID #360 06/24/23 10/31/23 Unknown release 24hr (osmotic) tabs OneTouch Verio test strips (blood #300 ea 07/07/23 10/31/23 Unknown sugar diagnostic) Auto Titrating CPAP See Rx Instructions .Route 10/22/23 10/31/23 Unknown .COMPLEX #1 ea potassium chloride 10 mEq 20 meq (2 x 10 mEq) PO DAILY 90 10/30/23 10/31/23 Unknown tablet,extended release(part/cryst) days #180 tabs warfarin 6 mg tablet See Rx Instructions PO UD 10/31/23 Unknown Past Medical History Medical History (Updated 11/05/23 @ 14:36 by Simran Jean PA-C) Abnormal EKG 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 on 09/23/23 EKG Chronic back pain Diabetes mellitus, type 2 IDDM and oral meds History of blood transfusion 1995 History of pulmonary embolism 1991, no issues since, on warfarin History of rhinophyma Hx of basal cell carcinoma s/p excision Hx of deep venous thrombosis 1991, LT leg, no issues since, on warfarin Hyperlipidemia Hypertension controlled, 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 Exercise / Class Metabolic Activity III < 4 Walking/Shop/Light housework (denies chest discomfort or shortness of breath with usual activities) Past Family History Family History Father Diabetes Unknown Type 2 diabetes mellitus Coronary heart disease COPD (chronic obstructive pulmonary disease) Brother Diabetes Sister Systemic lupus erythematosus Cardiac disorder Myocardial infarction Other No family history of adverse response to anesthesia Denies family history of Ovarian cancer Prostate cancer Breast cancer Colorectal cancer Past Surgical History Surgical History History of appendectomy History of carpal tunnel release of both wrists History of colonoscopy History of knee replacement procedure of left knee History of knee replacement procedure of right knee History of surgery SI joint fusion (10/16/20): Grade 3 view, MAC#3, ETT 7.5 at [facility] History of tonsillectomy Hx of basal cell carcinoma excision Hx of cholecystectomy Hx of hernia repair ventral hernia repair Hx of squamous cell carcinoma excision Hx of total hysterectomy with BSO S/P cubital tunnel release S/P epidural steroid injection S/P insertion of spinal cord stimulator 07/2022, patient was advised to bring 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 cord stimulator 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 Physical Exam Vital Signs Vitals BP 128/80 P 77 TEMP 97.9 SP02 96% on RA RESP 18 Physical Patient resting comfortably in chair in no acute distress, alert and oriented, responding appropriately throughout visit Full cervical extension range of motion without pain TMD < 3 finger breadths Mallampati Score 3 Dentition: intact, denies chipped or loose teeth, caps/crowns, implants or bridges Lungs: normal respiratory effort. Good air movement, clear throughout to auscultation, no adventitious breath sounds Cardiac: regular rate and rhythm, no murmurs noted Carotid arteries: negative bruit bilat Lab Results Anesthesia Preop Results Results Anesthesia Widget: WBC 9.93 K/ul (4.8-10.8) 11/05/23 Hgb 14.1 g/dl (12.0-16.0) 11/05/23 Hct 42.7 % (37.0-47.0) 11/05/23 Plt 296 K/uL (130-400) 11/05/23 Na 140 mmol/L (136-145) 11/05/23 K 4.3 mmol/L (3.5-5.1) 11/05/23 Cl 102 mmol/L (98-107) 11/05/23 CO2 29 mmol/L (21-32) 11/05/23 BUN 23 mg/dl (6-23) 11/05/23 Creat 0.86 mg/dl (0.6-1.2) 11/05/23 Glucose Level 178 mg/dl (70-99(Fasting)) H 11/05/23 PT 18.1 Seconds (9.0-12.0) H 11/05/23 PTT 36 Seconds (21-31) H 11/05/23 INR 1.7 (0.9-1.1) H 11/05/23 HA1c 5.8 % (4.5-5.6) H 11/05/23 Blood Type O Positive 11/05/23 Antibody Screen NEGATIVE 11/05/23 Testing Laboratory Results Workload note sent to Dr. Negron for continuity of care. Electrocardiogram Date: 11/05/23 NSR, rate 70 bpm Chest X-Ray Date: 09/23/23 *1view* Cardiomegaly with no active disease in the chest. Echocardiogram Date: 07/26/22 EF 65-70% No LV regional wall motion abnormalities Mild cLVH No significant valve pathology Mildly dilated RA
[~2023-12-05 10:03] MED LIST changes: +BUPIVACAINE 0.5 % 5 MG/1 ML PF 10ML VIAL ONE; -LACTATED RINGER'S 1,000 ML IV SCH
[2023-12-05] MEDS ORDERED: fentaNYL citrate PF 100 MCG/2 ML VIAL ONE (10:32)
[2023-12-05] MEDS ORDERED: PROPOFOL IV EMULSION 10 MG/ML 20 ML VIAL IV ONE (10:32)
[2023-12-05] MEDS: ACETAMINOPHEN 500 MG TAB PO SCH ×2 (11:09→19:48)
[2023-12-05] MEDS: FAMOTIDINE 20 MG TAB PO SCH (11:10)
[2023-12-05] MEDS: LR 15ML/HR IV SCH (11:10)
[2023-12-05] MEDS: GABAPENTIN 300 MG CAP PO SCH (11:10)
[2023-12-05] MEDS: dexAMETHasone**PF** 10 MG/ML VIAL IV SCH (11:10)
[2023-12-05] MEDS: LR 60ML/HR IV SCH (11:10)
--- NOTE | 2023-12-05 11:10 | History & Physical Bridge Note ---
Date of Service December 05, 2023 History & Physical Bridge Note I have examined the patient, reviewed the History & Physical and in the interval since the performance of the History & Physical I have noted the following changes of clinical significance: no changes noted
[2023-12-05] MEDS ORDERED: ATROPINE SULFATE 0.1 MG/ML 10ML SYR IV PRN (11:52)
[2023-12-05] MEDS ORDERED: ePHEDrine sulfate 50 MG/ML AMP IV PRN (11:52)
[2023-12-05] MEDS: TRANEXAMIC ACID 1,000 MG **IV Pre-op IV SCH (11:54)
[2023-12-05 11:56] LABS: Partial Thromboplastin Time 28 Seconds (21-31); Prothrombin Time 10.7 Seconds (9.0-12.0)
[2023-12-05] MEDS: ceFAZolin 2000MG 2,000 MG/15 ML SYR IV SCH ×2 (12:11→20:06)
[2023-12-05] MEDS ORDERED: ROCURONIUM BROMIDE 10 MG/ML 5 ML VIAL IV ONE (12:31)
[2023-12-05] MEDS ORDERED: SUCCINYLCHOLINE CHLORIDE 20 MG/ML 10 ML VIAL IV ONE (12:31)
[2023-12-05] MEDS: ROPIV 0.5% 246mg, Ketorolac 30mg, EPINEPHrine 0.5mg in NSS INFIL SCH (12:53)
[2023-12-05] MEDS: ORTHO JOINT ANESTHETIC ONE (12:53)
[2023-12-05] MEDS ORDERED: PHENYLEPHRINE 100MCG/ML 10ML SYR IV ONE (12:53)
[2023-12-05] MEDS ORDERED: ONDANSETRON INJ 2 MG/ML 2 ML VIAL ONE (13:09)
[2023-12-05] MEDS ORDERED: ePHEDrine sulfate 50 MG/ML AMP ONE (13:10)
[2023-12-05] MEDS: TRANEXAMIC ACID 1,000 MG **IV Intra-op IV SCH (13:10)
[2023-12-05] MEDS ORDERED: SUGAMMADEX SODIUM 200 MG/2 ML VIAL IV ONE (13:14)
--- NOTE | 2023-12-05 13:29 | Operative Report ---
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 A tenodesis was opted. This was a separate and distinct portion of the procedure. For these reasons, a CPT code modifier 59 will be added to this case. Implants used: I used a [employer]omet Comprehensive reverse total shoulder arthroplasty system with a size 13 press fit micro humeral stem, a +6 offset humeral tray and a standard humeral bearing, a 25 mm standard baseplate with a 6.5 mm central screw and superior and inferior locking screws, and a size 36 mm eccentric glenosphere. Griselda arrived at [facility] for the above procedure. She was seen in the preoperative holding area and the operative extremity was identified and signed. She was given a preoperative antibiotic, TXA, and an interscalene nerve block. She was taken back to the operating room, laid on table in supine position, and put under general anesthesia. She was then put into the beachchair position. The shoulder was then prepped and draped in sterile fashion. A timeout was done and the patient and the operative extremity was pro perly identified. A deltopectoral approach was used. Dissection was taken down through the fascia and the deltoid was retracted laterally and the conjoined tendon was retracted medially. The anterior shoulder was exposed. The biceps groove was opened up and the biceps tendon was examined extensively. The biceps tendon demonstrated enlargement and inflammatory changes consistent with longstanding inflammation in the context of osteoarthritis and cuff arthropathy. The long head of the biceps tendon was then tenodesed to the upper border of the pectoralis major. This was a separate and distinct portion of the procedure. The subscapularis was then directly released off the lesser tuberosity with a peel technique. The inferior capsule was released and the humeral head was dislocated. A canal finding reamer was sent down the center of the humeral canal. Sequential reaming up to a size 13 reamer was done. Off that reamer, a proximal humeral resection guide was placed. The proximal humerus was resected at 135 of inclination and 25 of retroversion. Osteophytes were then removed and the glenoid was exposed. Time was spent doing a complete capsular and labral release. The glenoid guide was then placed in the inferior aspect of the glenoid. A 3.2 mm Steinmann pin was then placed into the glenoid vault at 10 of inclination. The glenoid baseplate was then reamed. The final size 25 mm baseplate was then impacted in the place. A 6.5 mm central screw was then placed followed by superior and inferior locking screws. A 36 mm eccentric glenosphere was then impacted into place. Surrounding soft tissues were then injected with 100 cc an orthopedic pain control cocktail. The proximal humerus was then exposed. Sequential broaching of the humerus up to a size 13 broach was done. Off that broach a +6 offset humeral tray was trialed. The shoulder was then reduced, brought through a full range of motion, and felt to be stable. The shoulder was then dislocated and the broach was removed. The final size 13 micro press-fit humeral stem was then impacted into place. A standard humeral bearing was then snapped onto a +6 offset humeral tray. The humeral tray was then impacted onto the humeral stem. The shoulder was once again reduced, brought through a full range of motion, and felt to be stable. The subscapularis was chronically retracted and unable to be repaired. A dilute betadyne lavage was then done for 3 minutes. The joint was then irrigated with normal saline solution. Hemostasis was obtained. The interval was closed with 2-0 Vicryl suture. The skin was then closed with 2-0 Vicryl and fabian. A Silverlon dressing was placed and the arm was rested in a regular arm sling. She was then extubated and transferred to a hospital bed. She taken to the postanesthesia care unit in stable condition. She tolerated the procedure well. Derrick Cardenas PA-C, was present for the entire procedure. He was critical for patient positioning, prepping, draping, retraction exposure, wound closure and application of sterile dressing. I attest to the content of the Intraoperative Record and any orders documented therein. Any exceptions are noted below.
[2023-12-05] MEDS: fentaNYL citrate PF 100 MCG/2 ML VIAL IV PRN (13:45)
[2023-12-05] MEDS: ONDANSETRON INJ 2 MG/ML 2 ML VIAL IV PRN (14:05)
--- NOTE | 2023-12-05 14:12 | Anesthesiology Progress Note ---
Date of Service December 05, 2023 Anesthesia Post Procedure Vital Signs Vital Signs: Temp Pulse Pulse Resp BP Pulse Ox O2 Del Method 12/05/23 13:55 81 16 154/68 H 96 Oxymask 12/05/23 13:45 88 21 154/81 H 95 Oxymask 12/05/23 13:37 36 C L 82 20 150/51 H 96 Oxymask 12/05/23 10:45 36.4 C L 77 20 173/89 H 97 Room Air O2 Flow Rate 12/05/23 13:55 5 12/05/23 13:45 5 12/05/23 13:37 5 12/05/23 10:45 Pain Intensity Right Shoulder: Pain Intensity: 5 Transfer of Care Handoff Completed per policy Notes Mental Status: alert / awake / arousable and participated in evaluation Patient Amnestic to Procedure: Yes Nausea / Vomiting: adequately controlled Pain: adequately controlled Airway Patency, RR, SpO2: stable & adequate BP & HR: stable & adequate Hydration State: stable & adequate Anesthetic Complications: no major complications apparent and Pt Satisfied with anesthetic care
--- NOTE | 2023-12-05 14:38 | XRay Report ---
XR shoulder RT min 2V routine HISTORY: 83 years-old Female Post shoulder surgery COMPARISON: 09/09/2023 TECHNIQUE: 2 views of the right shoulder FINDINGS: Reverse right shoulder total joint arthroplasty with overlying skin fabian, expected postoperative s oft tissue swelling and deep tissue air. No acute fracture or unexpected opaque foreign body. Chronic right rib fractures. Cardiomegaly with partially imaged stimulator leads overlying the mid spine. IMPRESSION: Reverse right shoulder arthroplasty with expected postoperative changes. ACT 112: Negative or not required by law. The above report was generated using voice recognition software. It may contain grammatical, syntax o r spelling errors. Electronically signed by: Scott Noyola M.D. 12/05/2023 2:37 PM
[2023-12-05] MEDS ORDERED: PHARMACY GLYCEMIC MGMT CONSULT PRN (15:11)
[2023-12-05] MEDS ORDERED: HYDROmorphone INJ 0.5 MG/0.5 ML SYR IV PRN (15:11)
[2023-12-05] MEDS ORDERED: ONDANSETRON INJ 2 MG/ML 2 ML VIAL IV PRN (15:11)
[2023-12-05] MEDS ORDERED: NALOXONE HCL 0.4 MG/1 ML VIAL/CARP IV PRN (15:11)
[2023-12-05] MEDS ORDERED: MAGNESIUM HYDROXIDE SUSP 30 ML UDC PO PRN (15:11)
[2023-12-05] MEDS ORDERED: NON-FORMULARY MEDICATION (Auto Titrating Cpap misc) SCH (15:11)
[2023-12-05] MEDS ORDERED: bisacodyL 10 MG SUPP PR PRN (15:11)
[2023-12-05] MEDS ORDERED: oxyCODONE HCL IR 5 MG TAB (IMMEDIATE RELEASE) PO PRN (15:11)
[2023-12-05] MEDS ORDERED: GLUCAGON FOR INJ 1 MG VIAL IM PRN (15:30)
[2023-12-05] MEDS ORDERED: DEXTROSE 50% 50 ML SYRINGE IV PRN (15:30)
[2023-12-05] MEDS ORDERED: GLUCOSE 40% GEL 15 GM TUBE PO PRN (15:30)
[2023-12-05] MEDS ORDERED: GLUCOSE 10 TAB/TUBE PO PRN (15:30)
[2023-12-05] MEDS ORDERED: CARBOHYDRATES FOR HYPOGLYCEMIA PO PRN (15:30)
--- NOTE | 2023-12-05 15:54 | Pharmacy Report ---
Pharmacy Glycemic Short Note 2 - Date of Service December 05, 2023 - Glycemic Short BSG Results (Last 24 hours): 12/05/23 12/05/23 10:47 13:41 POC Glucose 142 H 177 H OUTPATIENT ANTIDIABETIC REGIMEN: * farxiga 10 mg daily, glipizid 5 mg bid, Lantus 20 units daily, metformin 1 gm bid ASSESSMENT: * 83 year old now s/p surgery, POD 0 - pharmacy consulted for glycemic management. Steroids pulled preoperatively - anticipate steroid induced hyperglycemia. Will start novolog weight based stress 2/3 and will stress home Lantus dose PLAN FOR INPATIENT GLYCEMIC CONTROL: * Hold outpatient oral diabetes medications * Basal insulin * Lantus 16-20 units daily - will time earlier with dinner to help with covering steroid effects (med rec states 8 units PHYSIOGNOMIST) * Bolus insulin * NovoLog per scale ACHS or Q6hrs while NPO * Goal Range: Low 110 mg/dL - High 140 mg/dL * Correction Factor: 15 mg/dL/unit * Nutritional / Prandial insulin per carb ratio of 1 unit per 6 grams CHO consumed
[2023-12-05 16:30] LABS: Prothrombin Time 11.3 Seconds (9.0-12.0)
[2023-12-05] MEDS: LANTUS PER UNIT CHARGE SC SCH (18:20)
[2023-12-05] MEDS: INSULIN ASPART PER UNIT CHARGE SC SCH (18:21)
[2023-12-05] MEDS: METOCLOPRAMIDE HCL INJ 5 MG/ML 2 ML VIAL IV PRN (18:22)
[2023-12-05] MEDS: SODIUM CHLORIDE 0.9% 1,000 ML IV SCH (18:27)
[2023-12-05] MEDS: PRAVASTATIN SOD 40 MG TAB PO SCH (20:04)
[2023-12-05] MEDS: DOCUSATE SODIUM 100 MG CAP PO SCH (20:05)
[2023-12-05] MEDS: SENNA 8.6 MG TAB PO SCH (20:05)
[2023-12-06] MEDS: INSULIN ASPART PER UNIT CHARGE SC SCH (00:08)
--- NOTE | 2023-12-06 06:34 | Orthopedic Progress Note ---
Date of Service December 06, 2023 Assessment & Plan (1) Status post reverse total replacement of right shoulder: Overall she is doing very well. She is not having much pain in the right shoulder. She will be seen by physical therapy today for ambulation and range of motion exercises. She can be discharged home later today. She will follow- up orthopedics in 2 weeks. New Villalobos was seen and examined at bedside this morning. Overall she is doing very well. She is not having much pain in the right shoulder. She was able to get some sleep last night.. Review of Systems All systems reviewed & are unremarkable except as noted in HPI & below. Physical Exam On physical examination the right shoulder, the dressing is clean and dry. She has active motion of her hand and her wrist.. Results & Data Results & Data Laboratory Results . Diagnostic Findings Postoperative x-rays of the right shoulder show the prosthesis to be in anatomic alignment without any evidence of fracture, dislocation, or loosening.. PG Care Time/CCT Total # of Minutes Spent Total Time Spent with Patient: Total time spent is greater than 50% in coordination of care (as documented) at patient's floor/unit and/or counseling patient: Coding Level of Care Code 59127 Post Operative Follow-Up Diagnoses Status post reverse total replacement of right shoulder Z96.611
--- NOTE | 2023-12-06 06:36 | Discharge Summary ---
Date of Service December 06, 2023 Principal Diagnosis Same as "Discharge Diagnosis" noted below under Discharge Instructions. Discharge Exam On physical examination the right shoulder, the dressing is clean and dry. She has active motion of her hand and her wrist.. Discharge Data Procedures Performed Operation Date: 12/05/23 12:00 Actual Procedures p Right Reverse Total Shoulder Arthroplasty(Right) - Yovanny Heard DO Ordered Studies 12/05/23 05:00 US - OR guided needle placemen Routine Hospital Course (1) Status post reverse total replacement of right shoulder: On December 05, 2023 Griselda arrived at [facility] and underwent a right reverse shoulder replacement without complication. She had a general anesthetic and a right interscalene nerve block. Postoperatively she was placed in a sling and transferred to the general orthopedic floors. Her hospital course was uneventful. On postop day #1, her vital signs were stable and her pain was well-controlled. She was able to participate well with physical therapy doing ambulation and range of motion exercises. She was then discharged home. She will follow-up with orthopedics in 2 weeks. PG Care Time/CCT Total # of Minutes Spent Total Time Spent with Patient: Total time spent is greater than 50% in coordination of care (as documented) at patient's floor/unit and/or counseling patient: Discharge Plan Discharge Items Patient Disposition: Home - Self-Care Reason For Visit: Degenerative Joint Disease Right Shoulder Discharge Diagnosis: Right reverse shoulder replacement Activity: Per Instructions section Non-emergency contact: Surgeon Call non-emergency contact if: your wound has increased redness and your wound has increased drainage Follow-up/Referrals: Nehemias Yoo DO [Primary Care Provider] - Diet: Regular Addtl Attending Provider Instructions: Activity and Therapy Recommendations: * If you are using [facility] then therapy will be provided at your home until they feel you have accomplished all of your goals. * If you are using [facility] then Physical Therapy will be provided until they feel you are ready to start Outpatient Physical Therapy. * If you are not using home therapy then Outpatient Physical Therapy should start about 3-5 days from your day of surgery. Therapy will last about 8-12 weeks * Wear your sling for 3 weeks, unless otherwise instructed. You may remove your sling to shower and to dress, but otherwise, you should be in your sling at all times, including while sleeping * The shoulder replacement is very stable and you can use your hand while in the sling * You were shown a series of exercises in the hospital. Do these exercises daily including the exercises you were shown in physical therapy. Medications: * Narcotic You will likely be sent home from the hospital with a prescription for the narcotic pain medication that worked best throughout your stay. * Cefadroxil -take the antibiotic twice a day for 10 days to help prevent infection. * Other medications may be prescribed for specific circumstances. If you have any questions, please call the office at . * Resume previous home medications unless otherwise instructed Dressing Care: Leave the Silverlon dressing in place for 7 days. After 7 days you may remove the dressing. If the incision is not draining then you may leave the fabian open to air. If there is a little bit of drainage or if the fabian are getting stuck on your clothing then cover the incision with a dry dressing. The fabian will be removed at your 2 week follow-up appointment. Showering: You may shower with the Silverlon dressing in place. Do not let the shower spray hit the dressing directly. Pat the Silverlon dressing dry. If the dressing becomes wet underneath, then simply remove the dressing. Keep the incision dry until you are 7 days out from the day of surgery. After 7 days you may remove the Silverlon dressing and shower with the fabian exposed. Let soapy water run over the fabian and pat them dry. Do not scrub or soak the incision. Things To Watch For: * Drainage from the incision site that occurs more than one week after your surgery. * Increased redness at the incision site. * Fever above 102 degrees Fahrenheit. * Unusual chest pain or shortness of breath. * Call [facility] at with any of the above problems Follow-Up Visit: Follow-up with Dr. Heard's PA (Yovanny Flowers) 2-3 weeks after your day of surgery. He will remove your fabian and answer any questions. If you have any additional questions or concerns, Dr Heard is usually in the office at the same time and will be available An appointment was probably scheduled when you signed-up for surgery in the office. If you have any questions call More detailed instructions as well as Frequently Asked Questions were provided in a folder by our office when you signed-up for surgery. Please review these instructions when you get home. If you have any further questions or concerns, please feel free to call the office at [phone] Pending Studies at Discharge: No Stand-Alone Forms: My [facility] Medications and DC Order Prescriptions: New cefadroxil 500 mg capsule 500 mg PO BID 10 Days Qty: 20 0RF tramadol 50 mg tablet 50 mg PO Q6H PRN (Reason: pain) Qty: 30 0RF Continued acetaminophen 500 mg tablet 1,000 mg PO BID PRN (Reason: Pain) warfarin 6 mg tablet See Rx Instructions PO UD Rx Instructions: 6mg daily per [facility] orally use as directed; on hold glipizide 5 mg tablet 5 mg PO BID Qty: 180 1RF Rx Instructions: 30 minutes before meals felodipine 10 mg tablet extended release 24 hr 10 mg PO QAM Qty: 90 3RF furosemide 40 mg tablet 40 mg PO QAM Qty: 90 3RF Rx Instructions: TAKE 1 TABLET BY MOUTH daily EVERY MORNING pravastatin 40 mg tablet 40 mg PO HS Qty: 90 3RF metformin 500 mg tablet extended release 24hr 1,000 mg PO BID Qty: 360 3RF (DME) OneTouch Verio test strips Strip See Rx Instructions .ROUTE .MEDSUPPLY Qty: 300 3RF Rx Instructions: Test blood sugar three times a day potassium chloride 10 mEq tablet,ER particles/crystals 20 meq PO DAILY 90 Days Qty: 180 0RF dapagliflozin propanediol [Farxiga] 10 mg tablet 10 mg PO QAM Qty: 90 3RF (DME) lancets [OneTouch Delica Lancets] 33 gauge misc See Rx Instructions .ROUTE .MEDSUPPLY Qty: 100 Rx Instructions: Test blood sugar three times a day (DME) blood-glucose meter [OneTouch Verio Flex meter] misc See Rx Instructions .ROUTE .MEDSUPPLY Qty: 1 Rx Instructions: Test blood sugar three times a day (DME) CPAP Supplies Misc See Rx Instructions .MEDSUPPLY Qty: 1 5RF Rx Instructions: CPAP supplies. Lifetime need. Auto Titrating CPAP Misc See Rx Instructions .ROUTE .COMPLEX Qty: 1 0RF Rx Instructions: 7-18 cm of water, mask fit to patient comfort, heated humidification, compliance download capabilities, DME [facility] patient cyanocobalamin (vitamin B-12) [Vitamin B-12] 500 mcg Tablet 1,000 mcg PO QAM doxycycline hyclate 50 mg capsule 50 mg PO BID cholecalciferol (vitamin D3) [Vitamin D3] 25 mcg (1,000 unit) Capsule 25 mcg PO QAM amoxicillin 500 mg capsule 2,000 mg PO UD PRN (Reason: dental work) Rx Instructions: TAKE FOUR TABLETS ONE HOUR PRIOR TO DENTAL WORK. insulin glargine [Basaglar KwikPen U-100 Insulin] 100 unit/mL (3 mL) insulin pen 20 unit SUBCUT QAM MDD 30 Rx Instructions: Increase as directed based on fasting blood sugar up to a total daily dose of 30 units Discharge Orders: Discharge Order (Routine); Ordered 12/06/23 Ordered By: Yovanny Heard Admission Data Admit Date/Time: 12/05/23 12:43 Attending Provider: Yovanny Heard Admit Provider: Yovanny Heard Primary Care Provider: Nehemias Yoo
[2023-12-06 06:57] LABS: Basophils # (auto) 0.03 K/uL (0.00-0.20); Basophils % (auto) 0.3 %; Eosinophils # (auto) 0.02 K/uL (0.00-0.50); Eosinophils % (auto) 0.2 %; Hematocrit (blood only) 39.3 % (37.0-47.0); Hemoglobin 12.7 g/dl (12.0-16.0); Immature Granulocytes # (auto) 0.05 K/uL (0.01-0.20); Immature Granulocytes % (auto) 0.5 %; Lymphocytes # (auto) 0.72 K/uL (1.20-3.40); Lymphocytes % (auto) 7.3 %; Mean Corpuscular Hemoglobin 29.8 pg (25.0-34.0); Mean Corpuscular Hgb Conc 32.3 g/dL (32.0-36.0); Mean Corpuscular Volume 92.3 fL (80.0-100.0); Mean Platelet Volume 10.3 fL (9.4-12.4); Monocytes # (auto) 0.63 K/uL (0.11-0.59); Monocytes % (auto) 6.4 %; Neutrophils # (auto) 8.42 K/uL (1.40-6.50); Neutrophils % (auto) 85.3 %; Platelet Count 235 K/uL (130-400); RDW Coefficient of Variation 13.6 % (11.5-14.5); RDW Standard Deviation 46.2 fL (36.4-46.3); Red Blood Count 4.26 M/uL (4.20-5.40); White Blood Count 9.87 K/ul (4.8-10.8)
[2023-12-06 07:08] LABS: Prothrombin Time 10.9 Seconds (9.0-12.0)
[2023-12-06 07:27] LABS: Est GFR (African American) 78.4 ml/min; Potassium 4.8 mmol/L (3.5-5.1)
[2023-12-06 07:28] LABS: BUN Creatinine Ratio 28.4 (10-20); Calcium 8.5 mg/dl (8.6-10.3); Creatinine Clr Calc Pharmacy 66.1 ml/min; Est GFR (Non-African American) 67.6 ml/min
[2023-12-06] MEDS: FELODIPINE 5 MG TABCR PO SCH (07:35)
[2023-12-06] MEDS: WARFARIN SOD 6 MG TAB PO SCH (07:35)
[2023-12-06] MEDS: FUROSEMIDE 40 MG TAB PO SCH (07:35)
[2023-12-06] MEDS: MULTIVITAMIN TAB PO SCH (07:35)
[2023-12-06] MEDS: POTASSIUM CHLORIDE CRTAB 20 MEQ TABCR PO SCH (07:36)
[2023-12-06] MEDS: LANTUS PER UNIT CHARGE SC SCH (08:01)
[2023-12-08] MEDS ORDERED: WARFARIN SOD 6 MG TAB PO SCH (16:00)
== END 2023-12-06 11:54 | disposition home or self-care (01) ==
LOC: ASU 10:03 → 3E 10:03

== ENCOUNTER 2024-02-05 20:17 | Observation (INO) ==
[2024-02-05] MEDS: ONDANSETRON INJ 2 MG/ML 2 ML VIAL IV STA (20:27)
--- NOTE | 2024-02-05 20:44 | Emergency Department Note ---
Impression & Plan Abdominal pain ADMIT ED Provider Note HPI: History obtained from patient. The patient is a 83-year-old female who presents the emergency department with a chief complaint of right-sided abdominal pain. Patient states this pain began just about an hour prior to arrival to the ER. Patient states that she was in the middle of playing bingo when she developed acute onset sharp right-sided abdominal pain. Patient denies any chest pain or shortness of breath. On arrival here to the ED the patient is noted to be hypertensive at 210/74, she is otherwise hemodynamically stable and saturating well on room air on arrival. ROS: - Per HPI Differential Diagnosis: Acute cholecystitis, small bowel obstruction, viral gastroenteritis, incarcerated hernia, acute coronary syndrome, aortic dissection,, amongst other potential pathologies. *Outpatient medications and allergy history reviewed. 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 Lab work shows no leukocytosis, hemoglobin is normal, platelet count is normal, CMP shows potassium of 4.2, sodium of 139, bilirubin is normal, AST is mildly elevated 72, ALT is normal, alk phos is normal, troponin is negative x 1. Lipase is normal. EKG per my interpretation shows normal sinus rhythm without any acute ischemic changes. Chest x-ray does not show any evidence of acute disease per my interpretation. CT imaging of the abdomen pelvis was obtained and shows some mild intrahepatic ductal ectasia without evidence of dilatation of the common bile duct. Per radiology interpretation this is thought to be secondary to history of cholecystectomy. Low suspicion for acute obstructive pathology at this time given lack of any CBD dilatation and normal bilirubin without significant transaminitis. Patient is noted to have a surgical history of a cholecystectomy. Urinalysis was obtained but is pending result at the time of admission. On my reassessment following IV morphine and IV Zofran, the patient states she is feeling improved but still remains with some right-sided abdominal pain and she does not feel comfortable with discharge. She has not vomited, she has not had any diarrhea. Patient was given an additional dose of morphine, I did discuss the patient's presentation with the on-call admitting resident for the [facility] and the patient was placed for admission in stable condition to the service of Dr. Forrester. Consultants/Discussions held with other healthcare providers: -HospitalistDr. Forrester Disposition discussion held by myself with: -Patient and at bedside Diagnosis: 1. 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 Class 3 severe obesity due to excess calories with body mass index (BMI) of 40.0 to 44.9 in adult Right rotator cuff tear Right rotator cuff tendonitis Osteopenia after menopause Neck pain Sacroiliitis Diabetic nephropathy Controlled type 2 diabetes mellitus with kidney complication, with long-term current use of insulin Controlled type 2 diabetes mellitus with diabetic neuropathy, with long-term current use of insulin Postlaminectomy syndrome of lumbar region (Chronic) Chronic anticoagulation (Chronic) Recurrent deep vein thrombosis (DVT) (Chronic) ON WARFARIN 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) Primary hypercoagulable state (Chronic) Pain of left sacroiliac joint (Chronic) Lymphedema (Chronic) Diabetic peripheral neuropathy associated with type 2 diabetes mellitus (Chronic) Chronic pain syndrome (Chronic) Lumbar stenosis with neurogenic claudication (Chronic 08/26/14) Ulnar neuropathy at elbow of right upper extremity S/P right rotator cuff repair 01/30/23 Hyperlipidemia (Chronic) Hypertension (Chronic) controlled, stable per pt Lumbar stenosis (Chronic) Obstructive sleep apnea (Chronic) CPAP (compliant) Chronic back pain (Chronic) History of pulmonary embolism (Chronic) 1991, no issues since, on warfarin Myofascial pain (Chronic) Medical History History of blood transfusion 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 Nummular eczema Morbid obesity with BMI of 40.0-44.9, adult Abnormal EKG Diabetes mellitus, type 2 History of rhinophyma Hx of basal cell carcinoma Hx of deep venous thrombosis Posterior tibialis tendon insufficiency Surgical History S/P cubital tunnel release S/P insertion of spinal cord stimulator History of surgery History of colonoscopy S/P epidural steroid injection S/P lumbar fusion History of appendectomy Status post uvulopalatopharyngoplasty History of tonsillectomy Hx of squamous cell carcinoma excision Hx of basal cell carcinoma excision Hx of hernia repair History of carpal tunnel release of both wrists Hx of cholecystectomy History of knee replacement procedure of right knee History of knee replacement procedure of left knee Hx of total hysterectomy S/P laminectomy Family History Father Diabetes Unknown Type 2 diabetes mellitus Coronary heart disease COPD (chronic obstructive pulmonary disease) Brother Diabetes Sister Systemic lupus erythematosus Cardiac disorder Myocardial infarction Other No family history of adverse response to anesthesia Denies family history of Ovarian cancer Prostate cancer Breast cancer Colorectal cancer Social History Smoking Status: Never smoker Second Hand Exposure: Yes (hx); Do You Dip or Chew Tobacco: No; Hx Alcohol Use: No Hx Substance Use: No Preferred Language: Dutch Communication Ability: Effective Visual Impairment: Limited Hearing Ability: Normal 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 Operator Required: No Beliefs That Will Affect Care: None marital status: Current Living Situation: Spouse current occupational status: retired Feels Safe at Home: Yes Childhood Exposure to Second-Hand Smoke: Yes Diet: diabetic caffeine: Yes Dental Care, Regularly: Yes Physical Activity Frequency: 1-2 Times per Week Physical Activity Frequency Comment: walk Seatbelt Use: always Sunscreen Use: Yes Assistive Devices: CPAP Allergies Allergies Allergy/AdvReac Type Severity Reaction Status Date / Time No Known Allergies Allergy Verified 02/05/24 22:14 Home Meds Home Medications Medication Instructions Recorded Confirmed cyanocobalamin (vitamin B-12) 500 1,000 mcg PO QAM 02/08/19 02/05/24 mcg tablet (Vitamin B-12) blood-glucose meter (OneTouch #1 ea 07/23/19 01/26/24 Verio Flex Meter) lancets 33 gauge (OneTouch Delica #100 ea 07/23/19 01/26/24 Lancets) doxycycline hyclate 50 mg capsule 50 mg PO BID 07/29/22 02/05/24 amoxicillin 500 mg capsule 2,000 mg PO UD PRN dental work 01/22/23 02/05/24 cholecalciferol (vitamin D3) 25 25 mcg PO QAM 01/22/23 02/05/24 mcg (1,000 unit) capsule (Vitamin D3) acetaminophen 500 mg tablet 1,000 mg PO BID PRN Pain 02/27/23 02/05/24 warfarin 6 mg tablet 6 mg PO .7XW 11/25/23 02/05/24 metformin 500 mg tablet,extended 1,000 mg PO BID 02/05/24 02/05/24 release 24 hr Previous Rx's Medication Instructions Recorded CPAP Supplies #1 ea 01/18/21 felodipine 10 mg tablet,extended 10 mg PO QAM #90 tabs 05/27/23 release 24 hr furosemide 40 mg tablet 40 mg PO QAM #90 tabs 05/27/23 pravastatin 40 mg tablet 40 mg PO HS #90 tabs 05/27/23 OneTouch Verio test strips (blood #300 ea 07/07/23 sugar diagnostic) dapagliflozin propanediol 10 mg 10 mg PO QAM #90 tabs 11/20/23 tablet (Farxiga) glipizide 5 mg tablet 5 mg PO BID #180 tabs 12/11/23 insulin glargine 100 unit/mL (3 20 unit (0.2 mL) subcut QAM #30 mL 12/22/23 mL) subcutaneous pen (Basaglar KwikPen U-100 Insulin) potassium chloride 10 mEq 20 meq (2 x 10 mEq) PO DAILY 90 01/28/24 tablet,extended release(part/cryst) days #180 tabs Results & Data (ED) Vital Signs Vital Signs - 24 hr 02/05/24 20:18 02/05/24 20:58 02/05/24 21:00 Temperature 36.6 C Temperature Source Temporal Artery Scan Pulse Rate 85 70 70 Pulse Rate [Apical] Pulse Rate from SpO2 Sensor 70 Pulse Rhythm Regular Pulse Rhythm [Apical] Pulse Strength Normal Respiratory Rate 20 10 L Respiratory Effort / Characteristics Non-Labored Respiratory Depth Normal Respiratory Pattern Regular Blood Pressure 210/74 H Blood Pressure [Left Arm] Blood Pressure Mean 119 Blood Pressure Mean [Left Arm] Blood Pressure Position Sitting Pulse Oximetry 98 97 Oxygen Delivery Method Room Air Sepsis Recent Fever Within 48 Hours No Sepsis New/Unexplained Change in Mental Status N/A Sepsis Action Taken by Nursing No Action Required 02/05/24 21:00 02/05/24 21:00 02/05/24 21:30 Temperature Temperature Source Pulse Rate 75 Pulse Rate [Apical] Pulse Rate from SpO2 Sensor 73 Pulse Rhythm Pulse Rhythm [Apical] Pulse Strength Respiratory Rate 12 Respiratory Effort / Characteristics Respiratory Depth Respiratory Pattern Blood Pressure 168/66 H 168/66 H Blood Pressure [Left Arm] Blood Pressure Mean 129 129 Blood Pressure Mean [Left Arm] Blood Pressure Position Pulse Oximetry 94 Oxygen Delivery Method Sepsis Recent Fever Within 48 Hours Sepsis New/Unexplained Change in Mental Status Sepsis Action Taken by Nursing 02/05/24 21:30 02/05/24 21:30 02/05/24 21:30 Temperature Temperature Source Pulse Rate 77 Pulse Rate [Apical] Pulse Rate from SpO2 Sensor Pulse Rhythm Pulse Rhythm [Apical] Pulse Strength Respiratory Rate 14 Respiratory Effort / Characteristics Respiratory Depth Respiratory Pattern Blood Pressure 157/60 H 157/60 H 157/60 H Blood Pressure [Left Arm] Blood Pressure Mean 113 113 113 Blood Pressure Mean [Left Arm] Blood Pressure Position Pulse Oximetry Oxygen Delivery Method Sepsis Recent Fever Within 48 Hours Sepsis New/Unexplained Change in Mental Status Sepsis Action Taken by Nursing 02/05/24 21:39 02/05/24 22:00 02/05/24 22:00 Temperature Temperature Source Pulse Rate 72 Pulse Rate [Apical] Pulse Rate from SpO2 Sensor 71 Pulse Rhythm Pulse Rhythm [Apical] Pulse Strength Respiratory Rate 21 Respiratory Effort / Characteristics Respiratory Depth Respiratory Pattern Blood Pressure 161/59 H 161/59 H Blood Pressure [Left Arm] Blood Pressure Mean 78 78 Blood Pressure Mean [Left Arm] Blood Pressure Position Pulse Oximetry 97 Oxygen Delivery Method Sepsis Recent Fever Within 48 Hours Sepsis New/Unexplained Change in Mental Status Sepsis Action Taken by Nursing 02/05/24 22:00 02/05/24 22:03 02/05/24 22:30 Temperature Temperature Source Pulse Rate 71 Pulse Rate [Apical] Pulse Rate from SpO2 Sensor 70 Pulse Rhythm Pulse Rhythm [Apical] Pulse Strength Respiratory Rate 13 Respiratory Effort / Characteristics Respiratory Depth Respiratory Pattern Blood Pressure 161/59 H 191/68 H Blood Pressure [Left Arm] Blood Pressure Mean 78 117 Blood Pressure Mean [Left Arm] Blood Pressure Position Pulse Oximetry 92 Oxygen Delivery Method Sepsis Recent Fever Within 48 Hours Sepsis New/Unexplained Change in Mental Status Sepsis Action Taken by Nursing 02/05/24 22:30 02/05/24 22:30 02/05/24 22:36 Temperature Temperature Source Pulse Rate 73 70 Pulse Rate [Apical] Pulse Rate from SpO2 Sensor 74 70 Pulse Rhythm Pulse Rhythm [Apical] Pulse Strength Respiratory Rate 15 15 Respiratory Effort / Characteristics Respiratory Depth Respiratory Pattern Blood Pressure 191/68 H Blood Pressure [Left Arm] Blood Pressure Mean 117 Blood Pressure Mean [Left Arm] Blood Pressure Position Pulse Oximetry 95 95 Oxygen Delivery Method Sepsis Recent Fever Within 48 Hours Sepsis New/Unexplained Change in Mental Status Sepsis Action Taken by Nursing 02/05/24 23:00 02/05/24 23:18 02/05/24 23:27 Temperature Temperature Source Pulse Rate 76 75 Pulse Rate [Apical] Pulse Rate from SpO2 Sensor 76 75 Pulse Rhythm Pulse Rhythm [Apical] Pulse Strength Respiratory Rate 13 15 Respiratory Effort / Characteristics Respiratory Depth Respiratory Pattern Blood Pressure 171/66 H Blood Pressure [Left Arm] Blood Pressure Mean 83 Blood Pressure Mean [Left Arm] Blood Pressure Position Pulse Oximetry 94 94 Oxygen Delivery Method Sepsis Recent Fever Within 48 Hours Sepsis New/Unexplained Change in Mental Status Sepsis Action Taken by Nursing 02/05/24 23:30 02/05/24 23:36 02/05/24 23:47 Temperature Temperature Source Pulse Rate 75 Pulse Rate [Apical] 77 Pulse Rate from SpO2 Sensor 75 Pulse Rhythm Pulse Rhythm [Apical] Regular Pulse Strength Respiratory Rate 9 L 14 Respiratory Effort / Characteristics Non-Labored Respiratory Depth Respiratory Pattern Blood Pressure 179/76 H Blood Pressure [Left Arm] 179/76 H Blood Pressure Mean 137 Blood Pressure Mean [Left Arm] 110 Blood Pressure Position Pulse Oximetry 94 96 Oxygen Delivery Method Room Air Sepsis Recent Fever Within 48 Hours Sepsis New/Unexplained Change in Mental Status Sepsis Action Taken by Nursing 02/06/24 00:55 Temperature Temperature Source Pulse Rate 83 Pulse Rate [Apical] Pulse Rate from SpO2 Sensor Pulse Rhythm Pulse Rhythm [Apical] Pulse Strength Respiratory Rate Respiratory Effort / Characteristics Respiratory Depth Respiratory Pattern Blood Pressure Blood Pressure [Left Arm] Blood Pressure Mean Blood Pressure Mean [Left Arm] Blood Pressure Position Pulse Oximetry Oxygen Delivery Method Sepsis Recent Fever Within 48 Hours Sepsis New/Unexplained Change in Mental Status Sepsis Action Taken by Nursing Laboratory Data 02/05/24 20:23 02/05/24 20:23 Lab Results 02/05/24 02/05/24 Range/Units 20:23 22:36 WBC 8.04 (4.8-10.8) K/ul RBC 4.78 (4.20-5.40) M/uL Hgb 14.2 (12.0-16.0) g/dl POC Hgb 12.6 (12.0-16.0) g/dl Hct 44.2 (37.0-47.0) % POC Hct 37 (37-47) % MCV 92.5 (80.0-100.0) fL MCH 29.7 (25.0-34.0) pg MCHC 32.1 (32.0-36.0) g/dL RDW Std Deviation 49.3 H (36.4-46.3) fL RDW Coeff of Radha 14.5 (11.5-14.5) % Plt Count 354 (130-400) K/uL MPV 10.3 (9.4-12.4) fL Immature Gran % (Auto) 0.5 % Neut % (Auto) 62.2 % Lymph % (Auto) 28.4 % Berks % (Auto) 7.5 % Eos % (Auto) 1.2 % Baso % (Auto) 0.2 % Neut # (Auto) 5.00 (1.40-6.50) K/uL Lymph # (Auto) 2.28 (1.20-3.40) K/uL Berks # (Auto) 0.60 H (0.11-0.59) K/uL Eos # (Auto) 0.10 (0.00-0.50) K/uL Baso # (Auto) 0.02 (0.00-0.20) K/uL Immature Gran # (Auto) 0.04 (0.01-0.20) K/uL POC Sodium 135 (135-144) mmol/L Sodium 139 (136-145) mmol/L POC Potassium 7.4 H* (3.3-5.0) mmol/L Potassium 4.2 (3.5-5.1) mmol/L POC Chloride 105 (101-112) mmol/L Chloride 102 (98-107) mmol/L Carbon Dioxide 26 (21-32) mmol/L POC Total CO2 27 (24-31) mmol/L Anion Gap 11 (3-11) POC Anion Gap 12.0 L (16-25) mmol/L POC BUN 30 H (7-18) mg/dl BUN 21 (6-23) mg/dl Creatinine 0.85 (0.6-1.2) mg/dl POC Creatinine 0.9 (0.6-1.3) mg/dl Est Cr Clr Drug Dosing 64.0 ml/min Est GFR ( Amer) 74.0 ml/min Est GFR (Non-Af Amer) 63.8 ml/min BUN/Creatinine Ratio 24.7 H (10-20) Glucose 165 H (70-99(Fasting)) mg/dl POC Glucose (other) 153 H (70-99) mg/dl Calcium 10.0 (8.6-10.3) mg/dl POC Ioniz Calcium Isamar 1.04 L (1.12-1.32) mmol/l Total Bilirubin 0.8 (0.2-1.0) mg/dl AST 72 H (13-39) U/L ALT 30 (7-52) U/L Alkaline Phosphatase 104 (34-104) U/L Troponin I High Sens 8.5 (0-14) pg/ml Total Protein 8.0 (6.0-8.3) gm/dl Albumin 4.4 (3.4-5.0) gm/dl Globulin 3.6 (2.5-4.0) gm/dl Albumin/Globulin Ratio 1.2 (0.9-2) Lipase 50 (11-82) U/L Administered Medications Discontinued Medications Sodium Chloride (Nss) 1,000 mls @ 999 mls/hr IV .Q1H1M ONE Stop: 02/05/24 21:43 Last Admin: 02/05/24 20:48 Dose: 999 mls/hr Documented By: PUJA Ioversol (Optiray 320 100ml) 90 ml IV ONCE ONE Stop: 02/05/24 22:48 Last Admin: 02/05/24 22:47 Dose: 90 ml Documented By: BERTIN Morphine Sulfate (Morphine Sulfate 4 Mg/Ml 1 Ml Carp\Vial) 4 mg IV NOW STA Stop: 02/05/24 20:44 Last Admin: 02/05/24 20:48 Dose: 4 mg Documented By: PUJA Ondansetron HCl (Ondansetron Inj 2 Mg/Ml 2 Ml Vial) 4 mg IV NOW STA Stop: 02/05/24 20:23 Last Admin: 02/05/24 20:27 Dose: 4 mg Documented By: BRENDAN Imaging Data Radiologist's Impression: Abdomen/Pelvis CT 02/05/24 20:42 Exam(s): CT ABDOMEN + PELVIS With Contrast IV Amt: 90 cc opti 320 EXAM: CT Abdomen and Pelvis With Intravenous Contrast CLINICAL HISTORY: Reason for exam: R sided abd pain x 1 hour. TECHNIQUE: Axial computed tomography images of the abdomen and pelvis with intravenous contrast. CTDI is 28.14 mGy and DLP is 1296.31 mGy-cm. Automated exposure control was utilized for the study. A dose lowering technique was utilized adhering to the principles of ALARA. Mild limited evaluation due to body habitus, patient motion/breathing, metal artifact and bilateral arms in the field of view. CONTRAST: Patient received 90 cc opti 320 of IV contrast COMPARISON: CT abdomen pelvis 08/12/23. FINDINGS: Lung bases: Mild bibasilar atelectasis or infiltrate. Moderate cardiomegaly. Small hiatal hernia. Liver: Fatty. Mild intrahepatic ductal dilatation, probably due to cholecystectomy. Gallbladder and bile ducts: Cholecystectomy. No ductal dilation. Pancreas: No ductal dilation. Spleen: Unremarkable. Adrenals: Unremarkable. Kidneys and ureters: Stable 5 mm non-obstructing stone right lower pole kidney. No pyelonephritis or hydronephrosis. Stomach and bowel: No obstruction. No diverticulosis or diverticulitis. Appendix: Normal. Intraperitoneal space: No free air or fluid. Bones/joints: Extensive Jay rods thoracolumbar spine with metal artifact limiting evaluation. No acute fracture. Soft tissues: Spinal stimulator power pack right gluteal region. Vasculature: Severe atherosclerosis, stable. No aortic aneurysm. Lymph nodes: No enlarged lymph nodes. Bladder: No stones. Reproductive: Unremarkable as visualized. IMPRESSION: 1. Mild intrahepatic ductal dilatation is present, nonspecific, may relate to biliary ectasia. 2. Stable extensive orthopedic hardware in the spine and nonobstructing stone right lower pole kidney. 3. No definite acute intra-abdominal or intrapelvic abnormality. 4. Mild limited evaluation due to body habitus. Electronically signed by: Yohana Persaud M.D. 02/06/24 00:18 AM Discharge Plan Visit Data Chief Complaint: Abdominal Pain Stated Complaint: ABD PAIN ED Provider: Mukesh Culver Discharge Problem: Abdominal pain Forms Stand Alone Forms: [facility] Prescriptions Prescriptions: No Action acetaminophen 500 mg tablet 1,000 mg PO BID PRN (Reason: Pain) warfarin 6 mg tablet 6 mg PO .7XW felodipine 10 mg tablet extended release 24 hr 10 mg PO QAM Qty: 90 3RF furosemide 40 mg tablet 40 mg PO QAM Qty: 90 3RF Rx Instructions: TAKE 1 TABLET BY MOUTH daily EVERY MORNING pravastatin 40 mg tablet 40 mg PO HS Qty: 90 3RF (DME) OneTouch Verio test strips Strip See Rx Instructions .ROUTE .MEDSUPPLY Qty: 300 3RF Rx Instructions: Test blood sugar three times a day dapagliflozin propanediol [Farxiga] 10 mg tablet 10 mg PO QAM Qty: 90 3RF glipizide 5 mg tablet 5 mg PO BID Qty: 180 3RF Rx Instructions: 30 minutes before meals insulin glargine [Basaglar KwikPen U-100 Insulin] 100 unit/mL (3 mL) insulin pen 20 unit SUBCUT QAM MDD 30 units Qty: 30 3RF Rx Instructions: Increase as directed based on fasting blood sugar up to a total daily dose of 30 units potassium chloride 10 mEq tablet,ER particles/crystals 20 meq PO DAILY 90 Days Qty: 180 3RF (DME) lancets [OneTouch Delica Lancets] 33 gauge misc See Rx Instructions .ROUTE .MEDSUPPLY Qty: 100 Rx Instructions: Test blood sugar three times a day (DME) blood-glucose meter [OneTouch Verio Flex meter] misc See Rx Instructions .ROUTE .MEDSUPPLY Qty: 1 Rx Instructions: Test blood sugar three times a day (DME) CPAP Supplies Misc See Rx Instructions .MEDSUPPLY Qty: 1 5RF Rx Instructions: CPAP supplies. Lifetime need. cyanocobalamin (vitamin B-12) [Vitamin B-12] 500 mcg Tablet 1,000 mcg PO QAM doxycycline hyclate 50 mg capsule 50 mg PO BID cholecalciferol (vitamin D3) [Vitamin D3] 25 mcg (1,000 unit) Capsule 25 mcg PO QAM amoxicillin 500 mg capsule 2,000 mg PO UD PRN (Reason: dental work) Rx Instructions: TAKE FOUR TABLETS ONE HOUR PRIOR TO DENTAL WORK. metformin 500 mg tablet extended release 24 hr 1,000 mg PO BID Referrals Referrals: Nehemias Yoo DO [Primary Care Provider] - Discharge Problem: Abdominal pain Qualifiers: Abdominal location: upper abdomen, unspecified Qualified Code(s): R10.10 - Upper abdominal pain, unspecified
[2024-02-05] MEDS: MoRPHine SULFATE 4 MG/ML 1 ML CARP\\VIAL IV STA (20:48)
[2024-02-05] MEDS: SODIUM CHLORIDE 0.9% 1,000 ML IV ONE (20:48)
[2024-02-05 20:58] LABS: Basophils # (auto) 0.02 K/uL (0.00-0.20); Basophils % (auto) 0.2 %; Eosinophils % (auto) 1.2 %; Hematocrit (blood only) 44.2 % (37.0-47.0); Hemoglobin 14.2 g/dl (12.0-16.0); Immature Granulocytes # (auto) 0.04 K/uL (0.01-0.20); Immature Granulocytes % (auto) 0.5 %; Lymphocytes # (auto) 2.28 K/uL (1.20-3.40); Lymphocytes % (auto) 28.4 %; Mean Corpuscular Hemoglobin 29.7 pg (25.0-34.0); Mean Corpuscular Hgb Conc 32.1 g/dL (32.0-36.0); Mean Corpuscular Volume 92.5 fL (80.0-100.0); Mean Platelet Volume 10.3 fL (9.4-12.4); Monocytes % (auto) 7.5 %; Neutrophils % (auto) 62.2 %; Platelet Count 354 K/uL (130-400); RDW Coefficient of Variation 14.5 % (11.5-14.5); RDW Standard Deviation 49.3 fL (36.4-46.3); Red Blood Count 4.78 M/uL (4.20-5.40); White Blood Count 8.04 K/ul (4.8-10.8)
[2024-02-05] MEDS: OPTIRAY 320 100ml IV ONE (22:47)
[2024-02-05 22:50] LABS: iSTAT Creatinine 0.9 mg/dl (0.6-1.3); iSTAT Hemoglobin 12.6 g/dl (12.0-16.0); iSTAT Ionized Calcium 1.04 mmol/l (1.12-1.32); iSTAT Potassium 7.4 mmol/L (3.3-5.0)
[2024-02-05 23:08] LABS: Albumin Level 4.4 gm/dl (3.4-5.0); Bilirubin,Total 0.8 mg/dl (0.2-1.0); Potassium 4.2 mmol/L (3.5-5.1)
[2024-02-05 23:14] LABS: Albumin Globulin Ratio 1.2 (0.9-2); BUN Creatinine Ratio 24.7 (10-20); Est GFR (Non-African American) 63.8 ml/min; Globulin 3.6 gm/dl (2.5-4.0)
[2024-02-05 23:26] LABS: Troponin I High Sensitivity 8.5 pg/ml (0-14)
--- NOTE | 2024-02-06 00:19 | CT Scan Report ---
Exam(s): CT ABDOMEN + PELVIS With Contrast IV Amt: 90 cc opti 320 EXAM: CT Abdomen and Pelvis With Intravenous Contrast CLINICAL HISTORY: Reason for exam: R sided abd pain x 1 hour. TECHNIQUE: Axial computed tomography images of the abdomen and pelvis with intravenous contrast. CTDI is 28.14 mGy and DLP is 1296.31 mGy-cm. Automated exposure control was utilized for the study. A dose lowering technique was utilized adhering to the principles of ALARA. Mild limited evaluation due to body habitus, patient motion/breathing, metal artifact and bilateral arms in the field of view. CONTRAST: Patient received 90 cc opti 320 of IV contrast COMPARISON: CT abdomen pelvis 08/12/23. FINDINGS: Lung bases: Mild bibasilar atelectasis or infiltrate. Moderate cardiomegaly. Small hiatal hernia. Liver: Fatty. Mild intrahepatic ductal dilatation, probably due to cholecystectomy. Gallbladder and bile ducts: Cholecystectomy. No ductal dilation. Pancreas: No ductal dilation. Spleen: Unremarkable. Adrenals: Unremarkable. Kidneys and ureters: Stable 5 mm non-obstructing stone right lower pole kidney. No pyelonephritis or hydronephrosis. Stomach and bowel: No obstruction. No diverticulosis or diverticulitis. Appendix: Normal. Intraperitoneal space: No free air or fluid. Bones/joints: Extensive Jay rods thoracolumbar spine with metal artifact limiting evaluation. No acute fracture. Soft tissues: Spinal stimulator power pack right gluteal region. Vasculature: Severe atherosclerosis, stable. No aortic aneurysm. Lymph nodes: No enlarged lymph nodes. Bladder: No stones. Reproductive: Unremarkable as visualized. IMPRESSION: 1. Mild intrahepatic ductal dilatation is present, nonspecific, may relate to biliary ectasia. 2. Stable extensive orthopedic hardware in the spine and nonobstructing stone right lower pole kidney. 3. No definite acute intra-abdominal or intrapelvic abnormality. 4. Mild limited evaluation due to body habitus. Electronically signed by: Yohana Persaud M.D. 02/06/24 00:18 AM
--- NOTE | 2024-02-06 00:40 | History & Physical Report ---
Date of Service February 06, 2024 Assessment & Plan (1) Abdominal pain: Plan: -CBC benign, CMP did show slightly elevated AST of 72. -Of note patient's potassium of 7.4 on admission is not accurate and deemed to be from a lab error. Will repeat CMP in the morning. -UA with trace protein, trace ketones, and 2+ glucose. -CT abdomen pelvis showed mild intrahepatic ductal dilatation as well as noted definitive acute intra-abdominal or intrapelvic abnormality. Though evaluation was limited due to body habitus. -Was considering MRCP, though patient has a spinal stimulator. -GI consulted, appreciate recommendations. -Due to significant pain on the right side only extending to the midline, cannot rule out possibility of shingles being the cause of patient's pain. -Also given patient's hypercoagulable and significant pain state may consider mesenteric ischemia. -Will keep n.p.o. at this time. -Maalox as needed, Zofran as needed, MiraLAX as needed. -Continue on IV fluids. -Dilaudid as needed for pain. -Will hold off on surgical consult given patient has had a history of cholecystectomy and appendectomy (2) Controlled type 2 diabetes mellitus with kidney complication, with long-term current use of insulin: Plan: -Patient's home regimen held on admission -Continue BSG checks, sliding-scale insulin, hypoglycemic protocol -Hemoglobin A1c in the a.m. (3) Hypertension: Plan: -Elevated blood pressure at time of admission, most likely secondary to pain. -Will continue home meds once patient is able to take p.o. meds -Echocardiogram was performed 07/26/2022 that revealed left ventricular systolic function normal with EF 65-70% (4) Hyperlipidemia: Plan: -Holding home meds until no longer n.p.o. (5) History of pulmonary embolism: Plan: - History of pulmonary embolism and DVTs in the past. Was presumed to have a hypercoagulable state. -Will continue home warfarin, monitor PT/INR and adjust appropriately. (6) Chronic anticoagulation: Plan: -On warfarin, monitor PT/INR and adjust as needed. (7) S/P insertion of spinal cord stimulator: Plan: - Has undergone multiple back surgeries, L4-S1 laminectomy with fusion in October 2010, 2014 compression fracture of L3, had to have extensive repeat surgery for removal instrument and fusion from T12-S1. Failed epidural injections and radiofrequency ablation. 2020 underwent open left sacral joint fusion. Currently has a spinal cord stimulator since 2021 (8) Obstructive sleep apnea: Plan: -Continue CPAP at night. Plan Fluids: LR @ 125 ml/hr Nutrition: NPO Code status: full code DVT ppx: warfarin Consults: GI Dispo: med/surg History of Present Illness Chief Complaint: abdominal pain Primary Care Provider: Nehemias Yoo DO Patient is a 83-year-old female who presents to the hospital with right-sided abdominal pain. She has past medical history of type 2 diabetes mellitus, hypertension, widespread osteoarthritis, hypercoagulable state on chronic anticoagulation, severe obstructive sleep apnea. She also has had multiple back surgeries and is on a spinal cord stimulator. Patient states that she was at [employer] and started to get dizzy as well as having epigastric and right upper quadrant abdominal pain. This occurred approximately at 8 PM. She also had facial flushing with this episode. Denies any nausea or vomiting. Did state that she almost felt nauseous but that went away quickly. She does not smoke, she does not drink alcohol, and no changes to her medications recently. She denies any fevers, chills, or shortness of breath. She states around 4 p.m. was last time she was she ate hotdogs and fries. Her last bowel movement was yesterday morning. Denies any diarrhea, constipation, hematochezia, urinary issues, or recent illness. Allergies Allergy/AdvReac Type Severity Reaction Status Date / Time No Known Allergies Allergy Verified 02/05/24 22:14 Home Medications Medication Instructions Recorded Confirmed Type cyanocobalamin (vitamin B-12) 500 1,000 mcg PO QAM 02/08/19 02/05/24 History mcg tablet (Vitamin B-12) blood-glucose meter (OneTouch #1 ea 07/23/19 01/26/24 History Verio Flex Meter) lancets 33 gauge (OneTouch Delica #100 ea 07/23/19 01/26/24 History Lancets) CPAP Supplies #1 ea 01/18/21 01/26/24 Rx doxycycline hyclate 50 mg capsule 50 mg PO BID 07/29/22 02/05/24 History amoxicillin 500 mg capsule 2,000 mg PO UD PRN dental work 01/22/23 02/05/24 History cholecalciferol (vitamin D3) 25 25 mcg PO QAM 01/22/23 02/05/24 History mcg (1,000 unit) capsule (Vitamin D3) acetaminophen 500 mg tablet 1,000 mg PO BID PRN Pain 02/27/23 02/05/24 History felodipine 10 mg tablet,extended 10 mg PO QAM #90 tabs 05/27/23 02/05/24 Rx release 24 hr furosemide 40 mg tablet 40 mg PO QAM #90 tabs 05/27/23 02/05/24 Rx pravastatin 40 mg tablet 40 mg PO HS #90 tabs 05/27/23 02/05/24 Rx OneTouch Verio test strips (blood #300 ea 07/07/23 01/26/24 Rx sugar diagnostic) dapagliflozin propanediol 10 mg 10 mg PO QAM #90 tabs 11/20/23 02/05/24 Rx tablet (Farxiga) warfarin 6 mg tablet 6 mg PO .7XW 11/25/23 02/05/24 History glipizide 5 mg tablet 5 mg PO BID #180 tabs 12/11/23 02/05/24 Rx insulin glargine 100 unit/mL (3 20 unit (0.2 mL) subcut QAM #30 mL 12/22/23 02/05/24 Rx mL) subcutaneous pen (Basaglar KwikPen U-100 Insulin) potassium chloride 10 mEq 20 meq (2 x 10 mEq) PO DAILY 90 01/28/24 02/05/24 Rx tablet,extended release(part/cryst) days #180 tabs metformin 500 mg tablet,extended 1,000 mg PO BID 02/05/24 02/05/24 History release 24 hr Past Med/Surg History Problem List (Updated 02/06/24 @ 00:46 by Mukesh Culver DO) Abdominal pain (Acute) Status post reverse total replacement of right shoulder (~11/2023) Rotator cuff tear, left 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 Class 3 severe obesity due to excess calories with body mass index (BMI) of 40.0 to 44.9 in adult Right rotator cuff tear Right rotator cuff tendonitis Osteopenia after menopause Neck pain Sacroiliitis Diabetic nephropathy Controlled type 2 diabetes mellitus with kidney complication, with long-term current use of insulin Controlled type 2 diabetes mellitus with diabetic neuropathy, with long-term current use of insulin Postlaminectomy syndrome of lumbar region (Chronic) Chronic anticoagulation (Chronic) Recurrent deep vein thrombosis (DVT) (Chronic) ON WARFARIN 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) Primary hypercoagulable state (Chronic) Pain of left sacroiliac joint (Chronic) Lymphedema (Chronic) Diabetic peripheral neuropathy associated with type 2 diabetes mellitus (Chronic) Chronic pain syndrome (Chronic) Lumbar stenosis with neurogenic claudication (Chronic 08/26/14) Ulnar neuropathy at elbow of right upper extremity S/P right rotator cuff repair 01/30/23 Hyperlipidemia (Chronic) Hypertension (Chronic) controlled, stable per pt Lumbar stenosis (Chronic) Obstructive sleep apnea (Chronic) CPAP (compliant) Chronic back pain (Chronic) History of pulmonary embolism (Chronic) 1991, no issues since, on warfarin Myofascial pain (Chronic) Medical History History of blood transfusion intermediate (current) use of anticoagulants Nummular eczema Morbid obesity with BMI of 40.0-44.9, adult Abnormal EKG Diabetes mellitus, type 2 History of rhinophyma Hx of basal cell carcinoma Hx of deep venous thrombosis Posterior tibialis tendon insufficiency Surgical History S/P cubital tunnel release S/P insertion of spinal cord stimulator History of surgery History of colonoscopy S/P epidural steroid injection S/P lumbar fusion History of appendectomy Status post uvulopalatopharyngoplasty History of tonsillectomy Hx of squamous cell carcinoma excision Hx of basal cell carcinoma excision Hx of hernia repair History of carpal tunnel release of both wrists Hx of cholecystectomy History of knee replacement procedure of right knee History of knee replacement procedure of left knee Hx of total hysterectomy S/P laminectomy Family History Father Diabetes Unknown Type 2 diabetes mellitus Coronary heart disease COPD (chronic obstructive pulmonary disease) Brother Diabetes Sister Systemic lupus erythematosus Cardiac disorder Myocardial infarction Other No family history of adverse response to anesthesia Denies family history of Ovarian cancer Prostate cancer Breast cancer Colorectal cancer Social History Smoking Status: Never smoker Second Hand Exposure: Yes (hx); Do You Dip or Chew Tobacco: No; Hx Alcohol Use: No Hx Substance Use: No Preferred Language: Jamaican Communication Ability: Effective Visual Impairment: Limited Hearing Ability: Normal 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 Beliefs That Will Affect Care: None marital status: Current Living Situation: Spouse current occupational status: retired Feels Safe at Home: Yes Childhood Exposure to Second-Hand Smoke: Yes Diet: diabetic caffeine: Yes Dental Care, Regularly: Yes Physical Activity Frequency: 1-2 Times per Week Physical Activity Frequency Comment: walk Seatbelt Use: always Sunscreen Use: Yes Assistive Devices: Cane, CPAP, Walker and Wheelchair Review of Systems Review of Systems: All systems reviewed & are unremarkable except as noted in Subjective Physical Exam Physical Exam: Constitutional: well-appearing, mild distress HEENT: NCAT, no conjunctival injection CV: regular rhythm, no murmur appreciated, extremities well-perfused, no LE edema Resp: CTABL, no wheezes/rales/rhonchi appreciated, no increased work of breathing GI: soft, nondistended, severe abdominal tenderness in the epigastric and RUQ , BS normoactive MSK: no gross deformities appreciated Skin: warm, dry, no rash appreciated Neuro: alert, oriented, no focal neurologic deficit appreciated Results & Data Results & Data Vital Signs (Past 12 Hours) Vital Signs Temp Pulse Pulse Resp BP BP Pulse Ox 02/05/24 23:47 77 14 179/76 H 96 02/05/24 23:36 75 9 L 94 02/05/24 23:30 179/76 H 02/05/24 23:27 75 15 94 02/05/24 23:18 76 13 94 02/05/24 23:00 171/66 H 02/05/24 22:36 70 15 95 02/05/24 22:30 73 15 95 02/05/24 22:30 191/68 H 02/05/24 22:30 191/68 H 02/05/24 22:03 71 13 92 02/05/24 22:00 161/59 H 02/05/24 22:00 161/59 H 02/05/24 22:00 161/59 H 02/05/24 21:39 72 21 97 02/05/24 21:30 157/60 H 06/27/24 21:30 157/60 H 02/05/24 21:30 77 14 157/60 H 02/05/24 21:30 75 12 94 02/05/24 21:00 168/66 H 02/05/24 21:00 168/66 H 02/05/24 21:00 70 10 L 97 02/05/24 20:58 70 02/05/24 20:18 36.6 C 85 20 210/74 H 98 O2 Del Method 02/05/24 23:47 Room Air 02/05/24 23:36 02/05/24 23:30 02/05/24 23:27 02/05/24 23:18 02/05/24 23:00 02/05/24 22:36 02/05/24 22:30 02/05/24 22:30 02/05/24 22:30 02/05/24 22:03 02/05/24 22:00 02/05/24 22:00 02/05/24 22:00 02/05/24 21:39 02/05/24 21:30 02/05/24 21:30 02/05/24 21:30 02/05/24 21:30 02/05/24 21:00 02/05/24 21:00 02/05/24 21:00 02/05/24 20:58 02/05/24 20:18 Room Air Supervising Physician Co-Signing Physician Notes Attending addendum: I have physically seen this patient, have supervised the medical residents activities, and agree with the H&P unless as otherwise noted. Assessment and Plan: Abdominal pain- AST 72, otherwise normal CBC with differential and chemistry profile CT scan abdomen pelvis shows mild intrahepatic ductal dilatation otherwise no acute findings Stimulator precludes ordering MRCP N.p.o. for now Consult gastroenterology IV fluids as noted Pain control as noted Diabetes mellitus- Holding glargine and metformin Placed on Accu-Cheks with NovoLog SSI Hypertension- Blood pressure mildly elevated, improved with pain control PE- For now continue warfarin no suggestion that she will need any type of procedure (1) Abdominal pain Abdominal location: upper abdomen, unspecified Qualified Code(s): R10.10 - Upper abdominal pain, unspecified
[2024-02-06 01:14] LABS: Appearance Urine Clear (Clear); Bacteria Urine Automated None Seen (None Seen); Bilirubin Urine Negative (Negative); Blood Urine Negative (Negative); Cast Urine Automated 0-2 /lpf (0-2); Color Urine Yellow; Glucose Urine UA 2+ (Negative); Ketones Urine Trace (Negative); Leukocyte Esterase Urine Negative (Negative); Nitrite Urine Negative (Negative); Protein Urine Trace (Negative); RBC Urine Automated 0-2 /hpf (0-2); Specific Gravity Urine 1.037 (1.000-1.030); Urobilinogen Urine Negative (Negative); WBC Urine Automated 0-5 /hpf (0-5)
[2024-02-06 01:28] LABS: INR 3.2 (0.9-1.1); Prothrombin Time 30.9 Seconds (9.0-12.0)
[2024-02-06] MEDS: MoRPHine SULFATE 4 MG/ML 1 ML CARP\\VIAL IV STA (01:32)
[2024-02-06] MEDS ORDERED: GLUCAGON FOR INJ 1 MG VIAL SQ PRN (03:04)
[2024-02-06] MEDS ORDERED: GLUCOSE 10 TAB/TUBE PO PRN (03:04)
[2024-02-06] MEDS ORDERED: DEXTROSE 50% 50 ML SYRINGE IV PRN (03:04)
[2024-02-06] MEDS ORDERED: POLYETHYLENE (MIRALAX) 17 GM PACK PO PRN (03:04)
[2024-02-06] MEDS ORDERED: ALUMINUM/MAGNESIUM SUSP 30 ML UDC PO PRN (03:04)
[2024-02-06] MEDS ORDERED: HYDROmorphone INJ 0.5 MG/0.5 ML SYR IV PRN (03:04)
[2024-02-06] MEDS ORDERED: GLUCOSE 40% GEL 15 GM TUBE PO PRN (03:04)
[2024-02-06] MEDS ORDERED: MELATONIN 3 MG TAB PO PRN (03:04)
[2024-02-06] MEDS ORDERED: CARBOHYDRATES FOR HYPOGLYCEMIA PO PRN (03:04)
[2024-02-06] MEDS: ONDANSETRON INJ 2 MG/ML 2 ML VIAL IV PRN (03:29)
[2024-02-06] MEDS: LACTATED RINGER'S 1,000 ML IV SCH (03:29)
[2024-02-06] MEDS: INSULIN ASPART PER UNIT CHARGE SC SCH (05:58)
--- NOTE | 2024-02-06 07:07 | XRay Report ---
SINGLE VIEW CHEST CLINICAL HISTORY: Generalized abdominal pain. FINDINGS: An AP, portable, upright chest radiograph is compared to study dated 01/14/2024. The heart is enlarged noting atherosclerotic calcification of the thoracic aorta. The pulmonary vasculature is no ncongested. Chronic interstitial thickening similar to previous. There is bibasilar scarring/atelecta sis. No airspace consolidation or large pleural effusion is identified. No pneumothorax is seen. The skeletal structures are osteopenic. There are chronic/healed right-sided rib fractures. A right shoul trini arthroplasty is in place. Intrathecal leads project over the thoracic spine. IMPRESSION: Cardiomegaly with no acute cardiopulmonary abnormality identified. ACT 112: Negative or not required by law. Electronically signed by: Leonidas Nolasco M.D. 02/06/2024 7:06 AM
[2024-02-06] MEDS: HYDROmorphone INJ 0.5 MG/0.5 ML SYR IV PRN (07:20)
--- NOTE | 2024-02-06 07:38 | Hospitalist Progress Note ---
Date of Service February 06, 2024 Assessment & Plan (1) Abdominal pain: Plan: -CBC benign, CMP did show slightly elevated AST of 72. -Of note patient's potassium of 7.4 on admission is not accurate and deemed to be from a lab error. Will repeat CMP in the morning. -UA with trace protein, trace ketones, and 2+ glucose. -CT abdomen pelvis showed mild intrahepatic ductal dilatation as well as noted definitive acute intra-abdominal or intrapelvic abnormality. Though evaluation was limited due to body habitus. -Was considering MRCP, though patient has a spinal stimulator. -GI consulted, appreciate recommendations. -Due to significant pain on the right side only extending to the midline, cannot rule out possibility of shingles being the cause of patient's pain. -Also given patient's hypercoagulable and significant pain state may consider mesenteric ischemia. -Will keep n.p.o. at this time. -Maalox as needed, Zofran as needed, MiraLAX as needed. -Continue on IV fluids. -Dilaudid as needed for pain. -Will hold off on surgical consult given patient has had a history of cholecystectomy and appendectomy (2) Controlled type 2 diabetes mellitus with kidney complication, with long-term current use of insulin: Plan: -Patient's home regimen held on admission -Continue BSG checks, sliding-scale insulin, hypoglycemic protocol -Hemoglobin A1c in the a.m. (3) Hypertension: Plan: -Elevated blood pressure at time of admission, most likely secondary to pain. -Will continue home meds once patient is able to take p.o. meds -Echocardiogram was performed 07/26/2022 that revealed left ventricular systolic function normal with EF 65-70% (4) Hyperlipidemia: Plan: -Holding home meds until no longer n.p.o. (5) History of pulmonary embolism: Plan: - History of pulmonary embolism and DVTs in the past. Was presumed to have a hypercoagulable state. -Will continue home warfarin, monitor PT/INR and adjust appropriately. (6) Chronic anticoagulation: Plan: -On warfarin, monitor PT/INR and adjust as needed. (7) S/P insertion of spinal cord stimulator: Plan: - Has undergone multiple back surgeries, L4-S1 laminectomy with fusion in October 2010, 2014 compression fracture of L3, had to have extensive repeat surgery for removal instrument and fusion from T12-S1. Failed epidural injections and radiofrequency ablation. 2020 underwent open left sacral joint fusion. Currently has a spinal cord stimulator since 2021 (8) Obstructive sleep apnea: Plan: -Continue CPAP at night. Plan Fluids: LR @ 125 ml/hr Nutrition: NPO Code status: full code DVT ppx: warfarin Consults: GI Dispo: med/surg Admission and Anticipated Discharge Date Admission Date: February 06, 2024 Subjective Pt is a [] yo [] with a past medical history of [] who presents to the hospital on [] for []. Review of Systems Review of Systems: Constitutional: denies fever, chills, [] HEENT: denies congestion, sore throat Cardio: denies chest pain, palpitations Resp: denies shortness of breath, cough GI: denies abdominal pain, nausea, vomiting, constipation, diarrhea : denies pain with urination, change in urinary frequency Neuro: denies new numbness, tingling, weakness Physical Exam Physical Exam: General:Alert and oriented, no acute distress, [] HEENT: Normocephalic, moist oral mucosa, Cardio: Regular rate and rhythm, no murmur, Resp:Lungs clear to auscultation b/l, no wheezes or rhonchi, GI: Soft and nontender, nondistended, bowel sounds active Skin: Warm, pink, dry, Psych: Mood-affect congruence. Results & Data Results & Data Vital Signs (Past 12 Hours) Vital Signs Temp Pulse Pulse Pulse Resp BP BP 02/06/24 07:15 36.7 C 98 H 18 173/71 H 02/06/24 03:47 36.4 C L 90 18 166/72 H 02/06/24 03:00 02/06/24 02:33 80 17 185/74 H 02/06/24 01:34 84 18 199/85 H 02/06/24 00:55 83 02/05/24 23:47 77 14 179/76 H 02/05/24 23:36 75 9 L 02/05/24 23:30 179/76 H 02/05/24 23:27 75 15 02/05/24 23:18 76 13 02/05/24 23:00 171/66 H 02/05/24 22:36 70 15 02/05/24 22:30 73 15 02/05/24 22:30 191/68 H 02/05/24 22:30 191/68 H 02/05/24 22:03 71 13 02/05/24 22:00 161/59 H 02/05/24 22:00 161/59 H 02/05/24 22:00 161/59 H 02/05/24 21:39 72 21 02/05/24 21:30 157/60 H 02/05/24 21:30 157/60 H 02/05/24 21:30 77 14 157/60 H 02/05/24 21:30 75 12 02/05/24 21:00 168/66 H 02/05/24 21:00 168/66 H 02/05/24 21:00 70 10 L 02/05/24 20:58 70 02/05/24 20:18 36.6 C 85 20 210/74 H Pulse Ox O2 Del Method 02/06/24 07:15 94 Room Air 02/06/24 03:47 95 Room Air 02/06/24 03:00 Room Air 02/06/24 02:33 94 Room Air 02/06/24 01:34 95 Room Air 02/06/24 00:55 02/05/24 23:47 96 Room Air 02/05/24 23:36 94 02/05/24 23:30 02/05/24 23:27 94 02/05/24 23:18 94 02/05/24 23:00 02/05/24 22:36 95 02/05/24 22:30 95 02/05/24 22:30 02/05/24 22:30 02/05/24 22:03 92 02/05/24 22:00 02/05/24 22:00 02/05/24 22:00 02/05/24 21:39 97 02/05/24 21:30 02/05/24 21:30 02/05/24 21:30 02/05/24 21:30 94 02/05/24 21:00 02/05/24 21:00 02/05/24 21:00 97 02/05/24 20:58 02/05/24 20:18 98 Room Air (1) Abdominal pain Abdominal location: upper abdomen, unspecified Qualified Code(s): R10.10 - Upper abdominal pain, unspecified
[2024-02-06 08:09] LABS: Basophils # (auto) 0.02 K/uL (0.00-0.20); Basophils % (auto) 0.3 %; Eosinophils # (auto) 0.02 K/uL (0.00-0.50); Eosinophils % (auto) 0.3 %; Hematocrit (blood only) 36.9 % (37.0-47.0); Hemoglobin 11.9 g/dl (12.0-16.0); Immature Granulocytes # (auto) 0.03 K/uL (0.01-0.20); Immature Granulocytes % (auto) 0.5 %; Lymphocytes # (auto) 0.39 K/uL (1.20-3.40); Lymphocytes % (auto) 5.9 %; Mean Corpuscular Hemoglobin 30.1 pg (25.0-34.0); Mean Corpuscular Hgb Conc 32.2 g/dL (32.0-36.0); Mean Corpuscular Volume 93.4 fL (80.0-100.0); Mean Platelet Volume 10.2 fL (9.4-12.4); Monocytes # (auto) 0.36 K/uL (0.11-0.59); Monocytes % (auto) 5.4 %; Neutrophils # (auto) 5.79 K/uL (1.40-6.50); Neutrophils % (auto) 87.6 %; Platelet Count 264 K/uL (130-400); RDW Coefficient of Variation 14.6 % (11.5-14.5); RDW Standard Deviation 50.1 fL (36.4-46.3); Red Blood Count 3.95 M/uL (4.20-5.40); White Blood Count 6.61 K/ul (4.8-10.8)
[2024-02-06 08:25] LABS: INR 3.6 (0.9-1.1); Prothrombin Time 35.3 Seconds (9.0-12.0)
--- NOTE | 2024-02-06 08:31 | Electrocardiogram Report ---
Test Reason : Blood Pressure : / mmHG Vent. Rate : 077 BPM Atrial Rate : 077 BPM P-R Int : 092 ms QRS Dur : 076 ms QT Int : 396 ms P-R-T Axes : -04 -04 045 degrees QTc Int : 448 ms Sinus rhythm with short NC with occasional , and consecutive Premature ventricular complexes Abnormal ECG When compared with ECG of 14-JAN-2024 14:45, Premature ventricular complexes are now Present Nonspecific ST abnormality no longer present Confirmed by Curtis Allen ([id number] on 02/06/2024 8:31:00 AM Referred By: REFERRED SELF Confirmed By:Curtis Allen
[2024-02-06 08:32] LABS: BUN Creatinine Ratio 23.3 (10-20); Calcium 8.8 mg/dl (8.6-10.3); Creatinine Clr Calc Pharmacy 74.5 ml/min; Est GFR (African American) 88.9 ml/min; Est GFR (Non-African American) 76.7 ml/min; Potassium 4.6 mmol/L (3.5-5.1)
[2024-02-06 08:45] LABS: Estimated Average Glucose 117 mg/dl; Hemoglobin A1C 5.7 % (4.5-5.6)
[2024-02-06 08:50] LABS: Albumin Globulin Ratio 1.2 (0.9-2); Albumin Level 3.6 gm/dl (3.4-5.0); Bilirubin,Total 1.2 mg/dl (0.2-1.0); Globulin 2.9 gm/dl (2.5-4.0); Total Protein 6.5 gm/dl (6.0-8.3)
--- NOTE | 2024-02-06 09:53 | Gastrointestinal Consultation ---
Date of Consultation February 06, 2024 Assessment & Plan (1) Abdominal pain: 83 year old female who presented with acute upper and pain which radiated to her RUQ, CT showing intrahepatic dilation s/p CCY. Yesterday her LFTS were normal w/ the exception of ALT 72. This AM, Tbili now 1.2 w/ AST 897, ALT 574, ALKP 116 concerning for an obstructive process. She tells me she is not able to have MR due to spinal stimulator Maintain NPO status Please arrange transfer for EUS/ERCP TigerText sent to primary team to discuss Anti-emetics PRN Analgesia PRN Thank you for allowing us to participate in the care of this patient. Please call with any acute changes, questions or concerns. Please see addendum below with additional recommendation from my supervising physician. I spent a total of 60 minutes on the date of service in review of patient's record, and previously obtained information in person and appropriate medical visit, discussion and education of plan, with patient and/or caregiver, placing orders for tests/referral/procedures as medically necessary and documentation of pertinent clinical information in patient's medical records for their visit today. Supervising Physician Co-Signing Physician Notes I examined the patient and reviewed patient's chart , laboratory data and imaging studies. I agree with with assessment and plan of care as suggested by advanced practice provider. Suspected symptomatic choledocholithiasis. MRCP could not be done due to implanted sacral stimulator. Transfer to another facility for possible ERCP is being arranged. History of Present Illness Reason for Consultation: abd pain Requesting Physician: Brenton Attending Physician: Aneesh Farris MD History of Present Illness 83 year old female with history of type 2 diabetes mellitus, hypertension, w idespread osteoarthritis, hypercoagulable state on chronic anticoagulation, severe obstructive sleep apnea, previous back surgeries w/ a stimulator admitted through the ED w/ upper abd pain, acute onset last evening. GI was asked to evaluate. Notes she acutely developed epigastric/RUQ pain. Sharp, stabbing, severe. She had nausea and emesis x 1 episodes which prompted ED evaluation. Denies GERD. No diarrhea/constipation. No black or bloody stools. Yesterday her LFTS were essential normal, this AM tbili 1.2, AST 897, ALT 574, ALKP 116 NO ETOH No NSAIDs No tobacco Had CCY years ago Had appendectomy years ago CTAP 2023: Mild intrahepatic ductal dilatation is present, nonspecific, may relate to biliary ectasia. 2. Stable extensive orthopedic hardware in the spine and nonobstructing stone right lower pole kidney. 3. No definite acute intra-abdominal or intrapelvic abnormality. 4. Mild limited evaluation due to body habitus. Does not recall last egd/colonoscopy Allergies Allergy/AdvReac Type Severity Reaction Status Date / Time No Known Allergies Allergy Verified 02/05/24 22:14 Home Medications Medication Instructions Recorded Confirmed Type cyanocobalamin (vitamin B-12) 500 1,000 mcg PO QAM 02/08/19 02/05/24 History mcg tablet (Vitamin B-12) blood-glucose meter (OneTouch #1 ea 07/23/19 01/26/24 History Verio Flex Meter) lancets 33 gauge (OneTouch Delica #100 ea 07/23/19 01/26/24 History Lancets) CPAP Supplies #1 ea 01/18/21 01/26/24 Rx doxycycline hyclate 50 mg capsule 50 mg PO BID 07/29/22 02/05/24 History amoxicillin 500 mg capsule 2,000 mg PO UD PRN dental work 01/22/23 02/05/24 H istory cholecalciferol (vitamin D3) 25 25 mcg PO QAM 01/22/23 02/05/24 History mcg (1,000 unit) capsule (Vitamin D3) acetaminophen 500 mg tablet 1,000 mg PO BID PRN Pain 02/27/23 02/05/24 History felodipine 10 mg tablet,extended 10 mg PO QAM #90 tabs 05/27/23 02/05/24 Rx release 24 hr furosemide 40 mg tablet 40 mg PO QAM #90 tabs 05/27/23 02/05/24 Rx pravastatin 40 mg tablet 40 mg PO HS #90 tabs 05/27/23 02/05/24 Rx OneTouch Verio test strips (blood #300 ea 07/07/23 01/26/24 Rx sugar diagnostic) dapagliflozin propanediol 10 mg 10 mg PO QAM #90 tabs 11/20/23 02/05/24 Rx tablet (Farxiga) warfarin 6 mg tablet 6 mg PO .7XW 11/25/23 02/05/24 History glipizide 5 mg tablet 5 mg PO BID #180 tabs 12/11/23 02/05/24 Rx insulin glargine 100 unit/mL (3 20 unit (0.2 mL) subcut QAM #30 mL 12/22/23 02/05/24 Rx mL) subcutaneous pen (Basaglar KwikPen U-100 Insulin) potassium chloride 10 mEq 20 meq (2 x 10 mEq) PO DAILY 90 01/28/24 02/05/24 Rx tablet,extended release(part/cryst) days #180 tabs metformin 500 mg tablet,extended 1,000 mg PO BID 02/05/24 02/05/24 History release 24 hr Patient History Medical History History of blood transfusion assisted (current) use of anticoagulants Nummular eczema Morbid obesity with BMI of 40.0-44.9, adult Abnormal EKG Diabetes mellitus, type 2 History of rhinophyma Hx of basal cell carcinoma Hx of deep venous thrombosis Posterior tibialis tendon insufficiency Surgical History S/P cubital tunnel release S/P insertion of spinal cord stimulator History of surgery History of colonoscopy S/P epidural steroid injection S/P lumbar fusion History of appendectomy Status post uvulopalatopharyngoplasty History of tonsillectomy Hx of squamous cell carcinoma excision Hx of basal cell carcinoma excision Hx of hernia repair History of carpal tunnel release of both wrists Hx of cholecystectomy History of knee replacement procedure of right knee History of knee replacement procedure of left knee Hx of total hysterectomy S/P laminectomy Family History Father Diabetes Unknown Type 2 diabetes mellitus Coronary heart disease COPD (chronic obstructive pulmonary disease) Brother Diabetes Sister Systemic lupus erythematosus Cardiac disorder Myocardial infarction Other No family history of adverse response to anesthesia Denies family history of Ovarian cancer Prostate cancer Breast cancer Colorectal cancer Social History Smoking Status: Never smoker Second Hand Exposure: Yes (hx); Do You Dip or Chew Tobacco: No; Hx Alcohol Use: No Hx Substance Use: No Preferred Language: Wolof Communication Ability: Effective Visual Impairment: Limited Hearing Ability: Normal Law Enforcement Director Required: No Beliefs That Will Affect Care: None marital status: Current Living Situation: Spouse current occupational status: retired Feels Safe at Home: Yes Childhood Exposure to Second-Hand Smoke: Yes Diet: diabetic caffeine: Yes Dental Care, Regularly: Yes Physical Activity Frequency: 1-2 Times per Week Physical Activity Frequency Comment: walk Seatbelt Use: always Sunscreen Use: Yes Assistive Devices: Cane, CPAP, Walker and Wheelchair Review of Systems Review of Systems: All other findings negative except as noted in HPI. Physical Exam Constitutional: WD/WN, vitals as above Respiratory: normal respiratory effort, lungs clear to auscultation Cardiovascular: Rate/Rhythm: regular rate and regular rhythm Gastrointestinal (Abdomen): Inspection/Auscultation: normal bowel sounds Percussion/Palpation: + abdomen tender and abdomen soft; no guarding and abdomen not rigid Skin: no rashes, warm and dry Results & Data Vital Signs (Past 12 Hours) Vital Signs Temp Pulse Pulse Pulse Resp BP BP 02/06/24 07:15 36.7 C 98 H 18 173/71 H 02/06/24 03:47 36.4 C L 90 18 166/72 H 02/06/24 03:00 02/06/24 02:33 80 17 185/74 H 02/06/24 01:34 84 18 199/85 H 02/06/24 00:55 83 02/05/24 23:47 77 14 179/76 H 02/05/24 23:36 75 9 L 02/05/24 23:30 179/76 H 02/05/24 23:27 75 15 02/05/24 23:18 76 13 02/05/24 23:00 171/66 H 02/05/24 22:36 70 15 02/05/24 22:30 73 15 02/05/24 22:30 191/68 H 02/05/24 22:30 191/68 H 02/05/24 22:03 71 13 02/05/24 22:00 161/59 H 02/05/24 22:00 161/59 H 02/05/24 22:00 161/59 H Pulse Ox O2 Del Method 02/06/24 07:15 94 Room Air 02/06/24 03:47 95 Room Air 02/06/24 03:00 Room Air 02/06/24 02:33 94 Room Air 02/06/24 01:34 95 Room Air 02/06/24 00:55 02/05/24 23:47 96 Room Air 02/05/24 23:36 94 02/05/24 23:30 02/05/24 23:27 94 02/05/24 23:18 94 02/05/24 23:00 02/05/24 22:36 95 02/05/24 22:30 95 02/05/24 22:30 02/05/24 22:30 02/05/24 22:03 92 02/05/24 22:00 02/05/24 22:00 02/05/24 22:00 Laboratory Results 02/06/24 02/06/24 02/06/24 Range/Units 07:33 05:41 03:12 WBC 6.61 (4.8-10.8) K/ul RBC 3.95 L (4.20-5.40) M/uL Hgb 11.9 L (12.0-16.0) g/dl POC Hgb (12.0-16.0) g/dl Hct 36.9 L (37.0-47.0) % POC Hct (37-47) % MCV 93.4 (80.0-100.0) fL MCH 30.1 (25.0-34.0) pg MCHC 32.2 (32.0-36.0) g/dL RDW Std Deviation 50.1 H (36.4-46.3) fL RDW Coeff of Radha 14.6 H (11.5-14.5) % Plt Count 264 (130-400) K/uL MPV 10.2 (9.4-12.4) fL Immature Gran % (Auto) 0.5 % Neut % (Auto) 87.6 % Lymph % (Auto) 5.9 % Ponce % (Auto) 5.4 % Eos % (Auto) 0.3 % Baso % (Auto) 0.3 % Neut # (Auto) 5.79 (1.40-6.50) K/uL Lymph # (Auto) 0.39 L (1.20-3.40) K/uL Ponce # (Auto) 0.36 (0.11-0.59) K/uL Eos # (Auto) 0.02 (0.00-0.50) K/uL Baso # (Auto) 0.02 (0.00-0.20) K/uL Immature Gran # (Auto) 0.03 (0.01-0.20) K/uL PT 35.3 H (9.0-12.0) Seconds INR 3.6 H (0.9-1.1) POC Sodium (135-144) mmol/L Sodium 141 (136-145) mmol/L POC Potassium (3.3-5.0) mmol/L Potassium 4.6 (3.5-5.1) mmol/L POC Chloride (101-112) mmol/L Chloride 106 (98-107) mmol/L Carbon Dioxide 28 (21-32) mmol/L POC Total CO2 (24-31) mmol/L Anion Gap 7 (3-11) POC Anion Gap (16-25) mmol/L POC BUN (7-18) mg/dl BUN 17 (6-23) mg/dl Creatinine 0.73 (0.6-1.2) mg/dl POC Creatinine (0.6-1.3) mg/dl Est Cr Clr Drug Dosing 74.5 ml/min Est GFR ( Amer) 88.9 ml/min Est GFR (Non-Af Amer) 76.7 ml/min BUN/Creatinine Ratio 23.3 H (10-20) Glucose 189 H (70-99(Fasting)) mg/dl POC Glucose 192 H 177 H (70-99) mg/dl POC Glucose (other) (70-99) mg/dl Estimat Average Glucose 117 mg/dl Hemoglobin A1c 5.7 H (4.5-5.6) % Calcium 8.8 (8.6-10.3) mg/dl POC Ioniz Calcium Isamar (1.12-1.32) mmol/l Total Bilirubin 1.2 H (0.2-1.0) mg/dl AST 897 H (13-39) U/L ALT 574 H (7-52) U/L Alkaline Phosphatase 116 H (34-104) U/L Troponin I High Sens (0-14) pg/ml Total Protein 6.5 (6.0-8.3) gm/dl Albumin 3.6 (3.4-5.0) gm/dl Globulin 2.9 (2.5-4.0) gm/dl Albumin/Globulin Ratio 1.2 (0.9-2) Lipase (11-82) U/L Urine Color Urine Appearance (Clear) Urine pH (4.5-7.5) Ur Specific Bells (1.000-1.030) Urine Protein (Negative) Urine Glucose (UA) (Negative) Urine Ketones (Negative) Urine Blood (Negative) Urine Nitrite (Negative) Urine Bilirubin (Negative) Urine Urobilinogen (Negative) Ur Leukocyte Esterase (Negative) Urine WBC (Auto) (0-5) /hpf Urine RBC (Auto) (0-2) /hpf U Hyaline Cast (Auto) (0-2) /lpf U Epithel Cells (Auto) (0-2) /hpf Urine Bacteria (Auto) (None Seen) 02/06/24 02/05/24 02/05/24 Range/Units 00:15 22:36 20:23 WBC 8.04 (4.8-10.8) K/ul RBC 4.78 (4.20-5.40) M/uL Hgb 14.2 (12.0-16.0) g/dl POC Hgb 12.6 (12.0-16.0) g/dl Hct 44.2 (37.0-47.0) % POC Hct 37 (37-47) % MCV 92.5 (80.0-100.0) fL MCH 29.7 (25.0-34.0) pg MCHC 32.1 (32.0-36.0) g/dL RDW Std Deviation 49.3 H (36.4-46.3) fL RDW Coeff of Radha 14.5 (11.5-14.5) % Plt Count 354 (130-400) K/uL MPV 10.3 (9.4-12.4) fL Immature Gran % (Auto) 0.5 % Neut % (Auto) 62.2 % Lymph % (Auto) 28.4 % Ponce % (Auto) 7.5 % Eos % (Auto) 1.2 % Baso % (Auto) 0.2 % Neut # (Auto) 5.00 (1.40-6.50) K/uL Lymph # (Auto) 2.28 (1.20-3.40) K/uL Ponce # (Auto) 0.60 H (0.11-0.59) K/uL Eos # (Auto) 0.10 (0.00-0.50) K/uL Baso # (Auto) 0.02 (0.00-0.20) K/uL Immature Gran # (Auto) 0.04 (0.01-0.20) K/uL PT 30.9 H (9.0-12.0) Seconds INR 3.2 H (0.9-1.1) POC Sodium 135 (135-144) mmol/L Sodium 139 (136-145) mmol/L POC Potassium 7.4 H* (3.3-5.0) mmol/L Potassium 4.2 (3.5-5.1) mmol/L POC Chloride 105 (101-112) mmol/L Chloride 102 (98-107) mmol/L Carbon Dioxide 26 (21-32) mmol/L POC Total CO2 27 (24-31) mmol/L Anion Gap 11 (3-11) POC Anion Gap 12.0 L (16-25) mmol/L POC BUN 30 H (7-18) mg/dl BUN 21 (6-23) mg/dl Creatinine 0.85 (0.6-1.2) mg/dl POC Creatinine 0.9 (0.6-1.3) mg/dl Est Cr Clr Drug Dosing 64.0 ml/min Est GFR ( Amer) 74.0 ml/min Est GFR (Non-Af Amer) 63.8 ml/min BUN/Creatinine Ratio 24.7 H (10-20) Glucose 165 H (70-99(Fasting)) mg/dl POC Glucose (70-99) mg/dl POC Glucose (other) 153 H (70-99) mg/dl Estimat Average Glucose mg/dl Hemoglobin A1c (4.5-5.6) % Calcium 10.0 (8.6-10.3) mg/dl POC Ioniz Calcium Isamar 1.04 L (1.12-1.32) mmol/l Total Bilirubin 0.8 (0.2-1.0) mg/dl AST 72 H (13-39) U/L ALT 30 (7-52) U/L Alkaline Phosphatase 104 (34-104) U/L Troponin I High Sens 8.5 (0-14) pg/ml Total Protein 8.0 (6.0-8.3) gm/dl Albumin 4.4 (3.4-5.0) gm/dl Globulin 3.6 (2.5-4.0) gm/dl Albumin/Globulin Ratio 1.2 (0.9-2) Lipase 50 (11-82) U/L Urine Color Yellow Urine Appearance Clear (Clear) Urine pH 7.0 (4.5-7.5) Ur Specific Bells 1.037 H (1.000-1.030) Urine Protein Trace H (Negative) Urine Glucose (UA) 2+ H (Negative) Urine Ketones Trace H (Negative) Urine Blood Negative (Negative) Urine Nitrite Negative (Negative) Urine Bilirubin Negative (Negative) Urine Urobilinogen Negative (Negative) Ur Leukocyte Esterase Negative (Negative) Urine WBC (Auto) 0-5 (0-5) /hpf Urine RBC (Auto) 0-2 (0-2) /hpf U Hyaline Cast (Auto) 0-2 (0-2) /lpf U Epithel Cells (Auto) 3-5 H (0-2) /hpf Urine Bacteria (Auto) None Seen (None Seen) PG Care Time/CCT Total # of Minutes Spent Total Time Spent with Patient: Total time spent is greater than 50% in coordination of care (as documented) at patient's floor/unit and/or counseling patient: Coding Level of Care Code 77247 INT INP/OBS CARE MIN Diagnoses Abdominal pain R10.10 Abdominal location: upper abdomen, unspecified (1) Abdominal pain Abdominal location: upper abdomen, unspecified Qualified Code(s): R10.10 - Upper abdominal pain, unspecified
--- NOTE | 2024-02-06 10:13 | Discharge Summary ---
Date of Service February 06, 2024 Admission HPI Per Admitting Provider Patient is a 83-year-old female who presents to the hospital with right-sided abdominal pain. She has past medical history of type 2 diabetes mellitus, hypertension, widespread osteoarthritis, hypercoagulable state on chronic anticoagulation, severe obstructive sleep apnea. She also has had multiple back surgeries and is on a spinal cord stimulator. Patient states that she was at [employer] and started to get dizzy as well as having epigastric and right upper quadrant abdominal pain. This occurred approximately at 8 PM. She also had facial flushing with this episode. Denies any nausea or vomiting. Did state that she almost felt nauseous but that went away quickly. She does not smoke, she does not drink alcohol, and no changes to her medications recently. She denies any fevers, chills, or shortness of breath. She states around 4 p.m. was last time she was she ate hotdogs and fries. Her last bowel movement was yesterday morning. Denies any diarrhea, constipation, hematochezia, urinary issues, or recent illness. Admission Exam Per Admitting Provider Constitutional: well-appearing, mild distress HEENT: NCAT, no conjunctival injection CV: regular rhythm, no murmur appreciated, extremities well-perfused, no LE edema Resp: CTABL, no wheezes/rales/rhonchi appreciated, no increased work of breathing GI: soft, nondistended, severe abdominal tenderness in the epigastric and RUQ , BS normoactive MSK: no gross deformities appreciated Skin: warm, dry, no rash appreciated Neuro: alert, oriented, no focal neurologic deficit appreciated Principal Diagnosis Possible biliary obstruction Discharge Exam General:Alert and oriented, no acute distress this morning HEENT: Normocephalic, moist oral mucosa, Cardio: Regular rate and rhythm, no murmur, Resp:Lungs clear to auscultation b/l, no wheezes or rhonchi, GI: Soft, bowel sounds active, tender to fairly light palpation of RUQ only Skin: Warm, pink, dry, Discharge Data Allergies Allergy/AdvReac Type Severity Reaction Status Date / Time No Known Allergies Allergy Verified 02/05/24 22:14 Consultations 02/06/24 00:28 ED Decision to Admit Stat 02/06/24 03:04 Consult Gastroenterology Routine Ordered Studies 02/05/24 20:42 CT Abd and Pelvis [CT abd pelvis IV con only] Stat Hospital Course (1) Abdominal pain: (2) Controlled type 2 diabetes mellitus with kidney complication, with long-term current use of insulin: (3) Hypertension: (4) Hyperlipidemia: (5) History of pulmonary embolism: (6) Chronic anticoagulation: (7) S/P insertion of spinal cord stimulator: (8) Obstructive sleep apnea: Plan Pt is an 83 yo female with a past med hx of cholecystectomy >20 years ago, hx DVT on anticoagulation, lymphedema, HTN, HLD, lumbar stenosis with hx back surgeries, and DMT2 on insulin who presents to the hospital on 02/04 for sudden R UQ pain, now being transferred for drastic transaminitis for further workup with MRCP/ERCP for evaluation of biliary obstruction. #Abdominal pain - on admission, CBC benign and AST was 72 with normal ALT, today LFTs are: AST 897, ALT 574, alk phosph 116, and total bili 1.2, lipase 50 on admission - CT scan on admission showed mild intrahepatic ductal dilatation - GI consulted and advised pt likely has biliary obstruction and would need transfer for ERCP/MRCP at outside facility to further evaluate this - pt NPO at this time until she can be evaluated further by outside facility upon transfer - given 1 dose of zosyn prior to transfer #DM -Patient's home regimen held on admission -HA1c 5.7 today, blood sugar levels stable #HTN -Elevated blood pressure at time of admission, most likely secondary to pain. -Echocardiogram was performed 07/26/2022 that revealed left ventricular systolic function normal with EF 65-70% - home BP meds held on admission #Hx DVT/PE - History of pulmonary embolism and DVTs in the past. Was presumed to have a hypercoagulable state. - home warfarin held pending GI eval, held today pending transfer #Hx back surgeries - Has undergone multiple back surgeries, L4-S1 laminectomy with fusion in October 2010, 2014 compression fracture of L3, had to have extensive repeat surgery for removal instrument and fusion from T12-S1. Failed epidural injections and radiofrequency ablation. 2020 underwent open left sacral joint fusion. Currently has a spinal cord stimulator since 2021 #JOSE -Continue CPAP at night. Total Time Total Time Spent Total Time Spent (In Minutes): As per attending attestation Discharge Plan Discharge Items Patient Disposition: Transfer Acute Care Hospital Reason For Visit: ABDOMINAL PAIN Discharge Diagnosis: Concern for biliary obstruction Activity: Resume your previous activity Non-emergency contact: Primary Care Provider and Adolescent Counselor Call non-emergency contact if: your symptoms worsen, your pain is worsening and your temperature is above 101 Follow-up/Referrals: Nehemias Yoo DO [Primary Care Provider] - Diet: Carb Consistent or DM2 Addtl Attending Provider Instructions: Pt is an 83 yo female with a past med hx of cholecystectomy >20 years ago, hx DVT on anticoagulation, lymphedema, HTN, HLD, lumbar stenosis with hx back surgeries, and DMT2 on insulin who presents to the hospital on 02/04 for sudden RUQ pain, now being transferred for drastic transaminitis for further workup with MRCP/ERCP for evaluation of biliary obstruction. #Abdominal pain - on admission, CBC benign and AST was 72 with normal ALT, today LFTs are: AST 897, ALT 574, alk phosph 116, and total bili 1.2, lipase 50 on admission - CT scan on admission showed mild intrahepatic ductal dilatation - GI consulted and advised pt likely has biliary obstruction and would need transfer for ERCP/MRCP at outside facility to further evaluate this - pt NPO at this time until she can be evaluated further by outside facility upon transfer - given 1 dose of zosyn prior to transfer #DM -Patient's home regimen held on admission -HA1c 5.7 today, blood sugar levels stable #HTN -Elevated blood pressure at time of admission, most likely secondary to pain. -Echocardiogram was performed 07/26/2022 that revealed left ventricular systolic function normal with EF 65-70% - home BP meds held on admission #Hx DVT/PE - History of pulmonary embolism and DVTs in the past. Was presumed to have a hypercoagulable state. - home warfarin held pending GI eval, held today pending transfer #Hx back surgeries - Has undergone multiple back surgeries, L4-S1 laminectomy with fusion in October 20102014 compression fracture of L3, had to have extensive repeat surgery for removal instrument and fusion from T12-S1. Failed epidural injections and radiofrequency ablation. 2020 underwent open left sacral joint fusion. Currently has a spinal cord stimulator since 2021 #JOSE -Continue CPAP at night. Pending Studies at Discharge: No Stand-Alone Forms: [facility] Skilled Items Patient informed of condition?: Yes DNR: No Discharge Level of Care: Other Communicable Disease: No Discharge Prognosis: Stable Lines: Peripheral IV Urinary Catheter: No Medications and DC Order Prescriptions: Continued acetaminophen 500 mg tablet 1,000 mg PO BID PRN (Reason: Pain) warfarin 6 mg tablet 6 mg PO .7XW felodipine 10 mg tablet extended release 24 hr 10 mg PO QAM Qty: 90 3RF furosemide 40 mg tablet 40 mg PO QAM Qty: 90 3RF Rx Instructions: TAKE 1 TABLET BY MOUTH daily EVERY MORNING pravastatin 40 mg tablet 40 mg PO HS Qty: 90 3RF (DME) OneTouch Verio test strips Strip See Rx Instructions .ROUTE .MEDSUPPLY Qty: 300 3RF Rx Instructions: Test blood sugar three times a day dapagliflozin propanediol [Farxiga] 10 mg tablet 10 mg PO QAM Qty: 90 3RF glipizide 5 mg tablet 5 mg PO BID Qty: 180 3RF Rx Instructions: 30 minutes before meals insulin glargine [Basaglar KwikPen U-100 Insulin] 100 unit/mL (3 mL) insulin pen 20 unit SUBCUT QAM MDD 30 units Qty: 30 3RF Rx Instructions: Increase as directed based on fasting blood sugar up to a total daily dose of 30 units potassium chloride 10 mEq tablet,ER particles/crystals 20 meq PO DAILY 90 Days Qty: 180 3RF (DME) lancets [OneTouch Delica Lancets] 33 gauge misc See Rx Instructions .ROUTE .MEDSUPPLY Qty: 100 Rx Instructions: Test blood sugar three times a day (DME) blood-glucose meter [OneTouch Verio Flex meter] misc See Rx Instructions .ROUTE .MEDSUPPLY Qty: 1 Rx Instructions: Test blood sugar three times a day (DME) CPAP Supplies Misc See Rx Instructions .MEDSUPPLY Qty: 1 5RF Rx Instructions: CPAP supplies. Lifetime need. cyanocobalamin (vitamin B-12) [Vitamin B-12] 500 mcg Tablet 1,000 mcg PO QAM doxycycline hyclate 50 mg capsule 50 mg PO BID cholecalciferol (vitamin D3) [Vitamin D3] 25 mcg (1,000 unit) Capsule 25 mcg PO QAM amoxicillin 500 mg capsule 2,000 mg PO UD PRN (Reason: dental work) Rx Instructions: TAKE FOUR TABLETS ONE HOUR PRIOR TO DENTAL WORK. metformin 500 mg tablet extended release 24 hr 1,000 mg PO BID Discharge Orders: Discharge Order (Routine); Ordered 02/06/24 Ordered By: Lavonne Fernandes Admission Data Admit Date/Time: 02/06/24 01:18 Attending Provider: Aneesh Farris Admit Provider: Leonidas Huntley Primary Care Provider: Nehemias Yoo Other Providers: Irene Garcia; Eliecer Johnson; Pat Villa; Yolis England; Erin Walls; Shonna Saleh; Lenka Will; Cheko Ruiz; Yaneth Pollard; Stanley Cordero; Abbey Mir S; Inés Mckay; Rosalind Martinez; Becky Wyatt; Oksana Turner; Xavier Rosado; Silver Adams; Ford Collier; Renae Rico; Matthew Warren Jr; Alexis Ny; Alireza Bishop; Dejon Pepe; Alf King; Blair Forrester Other Interventions: Discharge Summary Assessment (RN) Last Done: 02/06/24 15:49 Supervising Physician Co-Signing Physician Notes Attending attestation Pt seen and examined in concert with Dr. Fernandes. In agreement with the documented findings as noted in the resident documentation with any exceptions or additions as noted here. Reports abdominal pain, RUQ, ongoing with good control on current pain regimen without n/v, fevers. On examination, S1/S2 nl RRR no MCG. CTAB. Abd nondistended, RUQ TTP BS+ve Abdominal pain with transaminitis - GI consult - agree w/ further evaluation with ERCP and transfer to [facility] as noted. Initiated Zosyn prior to transfer, 1 dose completed Else see resident documentation as noted. Total attending physician time spent with this patient's care on the day of transfer: 40 minutes. Resident Activity Tracking Resident Involvement: Resident Care Provided Care Provided: Adult [facility]
[2024-02-06] MEDS: PIPERACILLIN/TAZOBACTAM 4.5 GM in DEXTROSE 5% MINI-B 100 ML IV ONE (11:45)
[2024-02-06] MEDS ORDERED: WARFARIN SOD 6 MG TAB PO SCH (16:00)
--- NOTE | 2024-02-06 19:07 | Billing Data ---
Date of Service February 06, 2024 Coding Level of Care Code 23872 INT INP/OBS CARE
== END 2024-02-06 16:54 | disposition short-term general hospital (02) ==
LOC: 3N 20:17 → ED 20:17 → SUATTDRO 02-06 01:18 → 3N 02-06 02:30

== ENCOUNTER 2025-01-26 08:02 | Observation (INO) ==
--- NOTE | 2024-12-29 14:18 | PAT Medication Instructions ---
Medication Instructions Date of Service December 29, 2024 Home Medications Medication Instructions Recorded CPAP Supplies #1 ea 01/18/21 BD Ultra-Fine Mahsa Pen Needle 32 #100 ea 04/01/24 gauge x 5/32" (pen needle, diabetic) pravastatin 40 mg tablet 40 mg PO HS #90 tabs 06/03/24 felodipine 10 mg tablet,extended 10 mg PO QAM #90 tabs 06/04/24 release 24 hr furosemide 40 mg tablet 40 mg PO QAM #90 tabs 06/04/24 amoxicillin 500 mg capsule 2,000 mg (4 x 500 mg) PO ONCE PRN 06/08/24 dental work #4 caps metformin 500 mg tablet,extended 1,000 mg (2 x 500 mg) PO BID #360 06/30/24 release 24 hr tabs OneTouch Verio test strips (blood #300 ea 09/27/24 sugar diagnostic) insulin glargine 100 unit/mL (3 20 unit (0.2 mL) subcut QAM #3 mL 10/11/24 mL) subcutaneous pen (Lantus Solostar U-100 Insulin) Farxiga 10 mg tablet 10 mg PO QAM #90 tabs 10/13/24 (dapagliflozin propanediol) cyanocobalamin (vitamin B-12) 500 mcg tablet (Vitamin B-12) 1,000 mcg PO QAM doxycycline hyclate 50 mg capsule 50 mg PO BID cholecalciferol (vitamin D3) 25 mcg (1,000 unit) capsule (Vitamin D3) 25 mcg PO QAM acetaminophen 500 mg tablet 1,000 mg PO UD PRN Pain pravastatin 40 mg tablet 40 mg PO HS felodipine 10 mg tablet,extended release 24 hr 10 mg PO QAM furosemide 40 mg tablet 40 mg PO QAM amoxicillin 500 mg capsule 2,000 mg (4 x 500 mg) PO ONCE PRN dental work glipizide 5 mg tablet 5 mg PO QAM potassium chloride 10 mEq tablet,extended release(part/cryst) 20 meq PO QAM warfarin 6 mg tablet 6 mg PO DAILY metformin 500 mg tablet,extended release 24 hr 1,000 mg (2 x 500 mg) PO BID insulin glargine 100 unit/mL (3 mL) subcutaneous pen (Lantus Solostar U-100 Insulin) 20 unit (0.2 mL) subcut QAM Farxiga 10 mg tablet (dapagliflozin propanediol) 10 mg PO QAM Continue as directed amoxicillin 500 mg capsule 2,000 mg (4 x 500 mg) PO ONCE PRN dental work ASK your prescriber and surgeon warfarin 6 mg tablet 6 mg PO DAILY STOP taking 3 days before surgery Farxiga 10 mg tablet (dapagliflozin propanediol) 10 mg PO QAM DO NOT take the morning of surgery cyanocobalamin (vitamin B-12) 500 mcg tablet (Vitamin B-12) 1,000 mcg PO QAM cholecalciferol (vitamin D3) 25 mcg (1,000 unit) capsule (Vitamin D3) 25 mcg PO QAM furosemide 40 mg tablet 40 mg PO QAM glipizide 5 mg tablet 5 mg PO QAM potassium chloride 10 mEq tablet,extended release(part/cryst) 20 meq PO QAM metformin 500 mg tablet,extended release 24 hr 1,000 mg (2 x 500 mg) PO BID Take morning of surgery With a small sip of water, OTHERWISE NOTHING TO EAT OR DRINK AFTER MIDNIGHT: doxycycline hyclate 50 mg capsule 50 mg PO BID acetaminophen 500 mg tablet 1,000 mg PO UD PRN Pain (if needed) felodipine 10 mg tablet,extended release 24 hr 10 mg PO QAM Insulin Dependent Diabetic Patients * Test your blood sugar the morning of surgery * If Blood Sugar is GREATER THAN 150, take HALF the units of your regular dose of: insulin glargine 100 unit/mL (3 mL) subcutaneous pen (Lantus Solostar U- 100 Insulin) * If Blood Sugar is LESS THAN 150, DO NOT TAKE ANY: insulin glargine 100 unit/mL (3 mL) subcutaneous pen (Lantus Solostar U-100 Insulin) Other Notes If you have any questions please call us at [phone] or [phone] or [phone] or [phone]
--- NOTE | 2025-01-06 08:19 | Anesthesiology Consultation ---
Date of Service January 06, 2025 Assessment & Plan (1) Encounter for pre-operative examination: Plan - 09/16 systolic murmur noted at PAT visit. Patient aware that will notify [place] PCP regarding if anything further is needed, he is scheduled for pre-op 01/11/25 with [place] PCP. Workload note sent. - check BSG and coags STAT am DOS. Chart Review Chart Review: Pending: Refer to Additional Notes / Consult section and Patient seen in Pre Admission Testing Teaching & Discussion Pre-Anesthesia Teaching/Discussion Notes: Instructed NPO after midnight before surgery, except medications with 15 cc of water. Medication instructions provided according to the PAT guidelines. History Surgery Operation Date: 01/21/25 09:05 Proposed Procedures p Revision SI Joint Fusion with Revision and New Hardware Placement - J Luis Schafer DO Height/Weight Height: 5 ft 4 in Weight: 112.2 kg Allergies Allergy/AdvReac Type Severity Reaction Status Date / Time No Known Allergies Allergy Verified 12/29/24 13:30 Medications Home Medications Medication Instructions Recorded Confirmed Last Taken cyanocobalamin (vitamin B-12) 500 1,000 mcg PO QAM 02/08/19 12/29/24 07/01/24 07:30 mcg tablet (Vitamin B-12) blood-glucose meter (OneTouch #1 ea 07/23/19 12/29/24 Unknown Verio Flex Meter) lancets 33 gauge (OneTouch Delica #100 ea 07/23/19 12/29/24 Unknown Lancets) CPAP Supplies #1 ea 01/18/21 12/29/24 Unknown doxycycline hyclate 50 mg capsule 50 mg PO BID 07/29/22 12/29/24 07/01/24 15:45 cholecalciferol (vitamin D3) 25 25 mcg PO QAM 01/22/23 12/29/24 07/01/24 07:30 mcg (1,000 unit) capsule (Vitamin D3) acetaminophen 500 mg tablet 1,000 mg PO UD PRN Pain 02/27/23 12/29/24 2 Weeks Ago ~04/10/23 BD Ultra-Fine Mahsa Pen Needle 32 #100 ea 04/01/24 12/29/24 Unknown gauge x 5/32" (pen needle, diabetic) pravastatin 40 mg tablet 40 mg PO HS #90 tabs 06/03/24 12/29/24 07/01/24 22:30 felodipine 10 mg tablet,extended 10 mg PO QAM #90 tabs 06/04/24 12/29/24 07/01/24 07:30 release 24 hr furosemide 40 mg tablet 40 mg PO QAM #90 tabs 06/04/24 12/29/24 07/01/24 07:30 amoxicillin 500 mg capsule 2,000 mg (4 x 500 mg) PO ONCE PRN 06/08/24 12/29/24 Unknown dental work #4 caps glipizide 5 mg tablet 5 mg PO QAM 06/28/24 12/29/24 07/01/24 07:30 potassium chloride 10 mEq 20 meq PO QAM 06/28/24 12/29/24 07/01/24 07:30 tablet,extended release(part/cryst) warfarin 6 mg tablet 6 mg PO DAILY 06/28/24 12/29/24 06/26/24 metformin 500 mg tablet,extended 1,000 mg (2 x 500 mg) PO BID #360 06/30/24 12/29/24 07/01/24 15:45 release 24 hr tabs OneTouch Verio test strips (blood #300 ea 09/27/24 12/29/24 Unknown sugar diagnostic) insulin glargine 100 unit/mL (3 20 unit (0.2 mL) subcut QAM #3 mL 10/11/24 12/29/24 Unknown mL) subcutaneous pen (Lantus Solostar U-100 Insulin) Farxiga 10 mg tablet 10 mg PO QAM #90 tabs 10/13/24 12/29/24 Unknown (dapagliflozin propanediol) Past Medical History Medical History (Updated 01/06/25 @ 08:42 by Simran Jean PA-C) Chronic pain syndrome Controlled type 2 diabetes mellitus with kidney complication, with long-term current use of insulin Diabetic nephropathy Per records History of blood transfusion 1995 History of rhinophyma HTN (hypertension) controlled, stable per pt Hx of basal cell carcinoma s/p excision Hx of deep venous thrombosis LLE (1991) No issues since, on warfarin Hx pulmonary embolism (1991) 1991, no issues since, on warfarin Hyperlipidemia Lumbar stenosis Lymphedema states wears scd's at times-states left arm is typically used for IV/lab draws/BP-denies limb restriction Morbid obesity with BMI of 40.0-44.9, adult Myofascial pain Nummular 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 starks today 12/29/24 TMJ (temporomandibular joint disorder) No current issues-denies any recent jaw locking or clicking Patient denies h/o stroke, seizures, heart attack, or heart failure. Exercise / Class Metabolic Activity III < 4 Walking/Shop/Light housework (denies chest discomfort or shortness of breath with usual activities) Past Family History Family History Father Diabetes Unknown Type 2 diabetes mellitus Coronary heart disease COPD (chronic obstructive pulmonary disease) Brother Diabetes Sister Systemic lupus erythematosus Cardiac disorder Myocardial infarction Other No family history of adverse response to anesthesia Denies family history of Ovarian cancer Prostate cancer Breast cancer Colorectal cancer Past Surgical History Surgical History History of appendectomy History of biliary stent insertion (02/2024) February 2024 and since removed May 11 2024. History of carpal tunnel release of both wrists History of colonoscopy History of knee replacement procedure of left knee History of knee replacement procedure of right knee History of repair of right rotator cuff History of reverse total replacement of right shoulder joint History of surgery SI joint fusion (10/16/20): Grade 3 view, MAC#3, ETT 7.5 at [facility] History of tonsillectomy Hx of basal cell carcinoma excision Hx of cholecystectomy Hx of hernia repair ventral hernia repair Hx of squamous cell carcinoma excision Hx of total hysterectomy with BSO S/P cubital tunnel release right S/P epidural steroid injection S/P insertion of spinal cord stimulator (07/2022) 07/2022 Patient advised to bring SCS remote DOS S/P laminectomy S/P lumbar fusion S/P trigger finger release (09/01/23) right thumb Status post uvulopalatopharyngoplasty Past Anesthesia History No Hx of Anesthesia Complications and No Family Hx of Anesthesia Complications History of PONV No Hx of Motion Sickness and History of PONV Social History Smoking Status: Never smoker Do You Dip or Chew Tobacco: No Hx Alcohol Use: No Hx Substance Use: No substance use type: does not use Review of Systems Patient denies chest pain, shortness of breath, dyspnea on exertion, reflux, fever, chills, cough, wheezing, or palpitations. Physical Exam Vital Signs Vitals BP 136/63 P 70 TEMP 97.7 SP02 97% on RA RESP 18 Physical Patient resting comfortably in chair in no acute distress, alert and oriented, responding appropriately throughout visit Full cervical extension range of motion without pain TMD 3 finger breadths Mallampati Score s/p UPPP Dentition: intact, denies chipped or loose teeth, caps/crowns, implants or bridges Lungs: normal respiratory effort. Good air movement, clear throughout to auscultation, no adventitious breath sounds Cardiac: regular rate and rhythm, 2/6 systolic murmur, no gallop or rubs Carotid arteries: negative bruit bilat Lab Results Anesthesia Preop Results Results Anesthesia Widget: WBC 7.05 K/ul (4.8-10.8) 01/06/25 Hgb 13.4 g/dl (12.0-16.0) 01/06/25 Hct 40.5 % (37.0-47.0) 01/06/25 Plt 241 K/uL (130-400) 01/06/25 Na 140 mmol/L (136-145) 01/06/25 K 4.1 mmol/L (3.5-5.1) 01/06/25 Cl 104 mmol/L (98-107) 01/06/25 CO2 29 mmol/L (21-32) 01/06/25 BUN 23 mg/dl (6-23) 01/06/25 Creat 0.80 mg/dl (0.6-1.2) 01/06/25 Glucose Level 113 mg/dl (70-99(Fasting)) H 01/06/25 PT 15.7 Seconds (9.0-12.0) H 01/06/25 PTT 33 Seconds (21-31) H 01/06/25 INR 1.5 (0.9-1.1) H 01/06/25 HA1c 5.6 % (4.5-5.6) 01/06/25 Urine Color Yellow 01/06/25 Urine Appearance Clear (Clear) 01/06/25 Urine pH 6.0 (4.5-7.5) 01/06/25 Urine Specific [place] 1.030 (1.000-1.030) 01/06/25 Urine Protein Negative (Negative) 01/06/25 Urine Glucose (UA) 3+ (Negative) H 01/06/25 Urine Ketones Negative (Negative) 01/06/25 Urine Blood Negative (Negative) 01/06/25 Urine Nitrite Negative (Negative) 01/06/25 Urine Bilirubin Negative (Negative) 01/06/25 Urine Urobilinogen Negative (Negative) 01/06/25 Urine Leukocyte Esterase Negative (Negative) 01/06/25 Blood Type O Positive 01/06/25 Antibody Screen NEGATIVE 01/06/25 Testing Electrocardiogram Date: 01/06/25 NSR, rate 68 bpm Chest X-Ray Date: 01/06/25 1.No evidence of infiltrates, consolidation or mass noted. 2.No active pleuropulmonary pathology seen. Echocardiogram Date: 07/26/22 EF 65-70% No regional wall motion abnormalities noted Mild cLVH No significant valve pathology Mildly dilated RA Cervical Spine Date: 01/10/24 No fractures within the cervical spine.
[~2025-01-26 08:02] MED LIST changes: -BUPIVACAINE 0.5 % 5 MG/1 ML PF 10ML VIAL ONE; +DEXAMETHASONE SOD INJ 4 MG/ML VIAL ONE; +GLYCOPYRROLATE 0.2 MG/ML VIAL ONE; +LIDOCAINE 2% 2 ML VIAL/AMP(20MG/ML) INFIL ONE; +MIDAZOLAM HCL 1 MG/ML 2ML VIAL ONE; +ONDANSETRON INJ 2 MG/ML 2 ML VIAL ONE; +PROPOFOL IV EMULSION 10 MG/ML 20 ML VIAL IV ONE; +ROCURONIUM BROMIDE 10 MG/ML 5 ML VIAL IV ONE; +SUGAMMADEX SODIUM 200 MG/2 ML VIAL IV ONE; +fentaNYL citrate PF 100 MCG/2 ML VIAL ONE
[2025-01-26] MEDS: GABAPENTIN 300 MG CAP PO SCH (08:31)
[2025-01-26] MEDS: LR 60ML/HR IV SCH (08:31)
[2025-01-26] MEDS: CeleBREX 200 MG CAP PO SCH (08:31)
[2025-01-26] MEDS: LR 15ML/HR IV SCH (08:32)
[2025-01-26] MEDS: ACETAMINOPHEN 500 MG TAB PO SCH (08:32)
[2025-01-26 08:50] LABS: Partial Thromboplastin Time 28 Seconds (21-31); Prothrombin Time 10.9 Seconds (9.0-12.0)
[2025-01-26] MEDS ORDERED: ATROPINE SULFATE 0.1 MG/ML 10ML SYR IV PRN (08:55)
[2025-01-26] MEDS ORDERED: PROMETHAZINE HCL 6.25 MG in SODIUM CHLORIDE 0.9% 50 ML IV PRN (08:55)
[2025-01-26] MEDS ORDERED: ePHEDrine sulfate 50 MG/ML AMP IV PRN (08:55)
--- NOTE | 2025-01-26 09:25 | History & Physical Bridge Note ---
Date of Service January 26, 2025 History & Physical Bridge Note I have examined the patient, reviewed the History & Physical and in the interval since the performance of the History & Physical I have noted the following changes of clinical significance: no changes noted
--- NOTE | 2025-01-26 09:27 | History & Physical Report ---
Date of Service January 26, 2025 Assessment & Plan (1) Sacroiliitis: Plan: Revision sacroiliac joint fusion with new hardware placement on the left History of Present Illness Chief Complaint: Chronic persistent left SI joint pain Primary Care Provider: Nehemias Yoo, DO This is a she is 84 years old this is an 84-year-old female who presents with chronic persistent left SI joint pain. 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 Allergies Allergy/AdvReac Type Severity Reaction Status Date / Time No Known Allergies Allergy Verified 01/26/25 08:23 Home Medications Medication Instructions Recorded Confirmed Type cyanocobalamin (vitamin B-12) 500 1,000 mcg PO QAM 02/08/19 01/26/25 History mcg tablet (Vitamin B-12) blood-glucose meter (OneTouch #1 ea 07/23/19 01/25/25 History Verio Flex Meter) lancets 33 gauge (OneTouch Delica #100 ea 07/23/19 01/25/25 History Lancets) CPAP Supplies #1 ea 01/18/21 01/25/25 Rx doxycycline hyclate 50 mg capsule 50 mg PO BID 07/29/22 01/26/25 History cholecalciferol (vitamin D3) 25 25 mcg PO QAM 01/22/23 01/26/25 History mcg (1,000 unit) capsule (Vitamin D3) acetaminophen 500 mg tablet 1,000 mg PO UD PRN Pain 02/27/23 01/26/25 History BD Ultra-Fine Mahsa Pen Needle 32 #100 ea 04/01/24 01/25/25 Rx gauge x 5/32" (pen needle, diabetic) pravastatin 40 mg tablet 40 mg PO HS #90 tabs 06/03/24 01/26/25 Rx felodipine 10 mg tablet,extended 10 mg PO QAM #90 tabs 06/04/24 01/26/25 Rx release 24 hr furosemide 40 mg tablet 40 mg PO QAM #90 tabs 06/04/24 01/26/25 Rx amoxicillin 500 mg capsule 2,000 mg (4 x 500 mg) PO ONCE PRN 06/08/24 01/26/25 Rx dental work #4 caps glipizide 5 mg tablet 5 mg PO QAM 06/28/24 01/26/25 History potassium chloride 10 mEq 20 meq PO QAM 06/28/24 01/26/25 History tablet,extended release(part/cryst) warfarin 6 mg tablet 6 mg PO DAILY 06/28/24 01/26/25 History metformin 500 mg tablet,extended 1,000 mg (2 x 500 mg) PO BID #360 06/30/24 01/26/25 Rx release 24 hr tabs OneTouch Verio test strips (blood #300 ea 09/27/24 01/25/25 Rx sugar diagnostic) insulin glargine 100 unit/mL (3 20 unit (0.2 mL) subcut QAM #3 mL 10/11/24 01/26/25 Rx mL) subcutaneous pen (Lantus Solostar U-100 Insulin) Farxiga 10 mg tablet 10 mg PO QAM #90 tabs 10/13/24 01/26/25 Rx (dapagliflozin propanediol) Past Med/Surg History Problem List Systolic murmur History of anemia Class 3 severe obesity due to excess calories with body mass index (BMI) of 40.0 to 44.9 in adult (Chronic) Osteopenia after menopause (Chronic) Controlled type 2 diabetes mellitus with kidney complication, with long-term current use of insulin (Chronic) Controlled type 2 diabetes mellitus with diabetic neuropathy, with long-term current use of insulin (Chronic) History of pulmonary embolism (Chronic) 1991, no issues since, on warfarin 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) Primary hypercoagulable state (Chronic) Obstructive sleep apnea (Chronic) CPAP (compliant) Lymphedema (Chronic) Hypertension (Chronic) controlled, stable per pt Hyperlipidemia (Chronic) Chronic pain syndrome (Chronic) Medical History Hx pulmonary embolism (1992) 1991, no issues since, on warfarin Lymphedema states wears scd's at times-states left arm is typically used for IV/lab draws/BP-denies limb restriction Chronic pain syndrome Controlled type 2 diabetes mellitus with kidney complication, with long-term current use of insulin Hyperlipidemia HTN (hypertension) controlled, stable per pt Myofascial pain Rosacea 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 starks today 12/29/24 Diabetic nephropathy Per records TMJ (temporomandibular joint disorder) No current issues-denies any recent jaw locking or clicking Osteopenia Per records, patient unaware History of blood transfusion 1995 Nummular eczema Morbid obesity with BMI of 40.0-44.9, adult History of rhinophyma Hx of basal cell carcinoma s/p excision Hx of deep venous thrombosis LLE (1991) No issues since, on warfarin Surgical History S/P trigger finger release (09/01/23) right thumb History of reverse total replacement of right shoulder joint History of biliary stent insertion (02/2024) February 2024 and since removed May 11 2024. History of repair of right rotator cuff S/P cubital tunnel release right S/P insertion of spinal cord stimulator (07/2022) 07/2022 Patient advised to bring SCS remote DOS History of surgery SI joint fusion (10/16/20): Grade 3 view, MAC#3, ETT 7.5 at [facility] History of colonoscopy S/P epidural steroid injection S/P lumbar fusion History of appendectomy Status post uvulopalatopharyngoplasty History of tonsillectomy Hx of squamous cell carcinoma excision Hx of basal cell carcinoma excision Hx of hernia repair ventral hernia repair History of carpal tunnel release of both wrists Hx of cholecystectomy History of knee replacement procedure of right knee History of knee replacement procedure of left knee Hx of total hysterectomy with BSO S/P laminectomy Family History Father Diabetes Unknown Type 2 diabetes mellitus Coronary heart disease COPD (chronic obstructive pulmonary disease) Brother Diabetes Sister Systemic lupus erythematosus Cardiac disorder Myocardial infarction Other No family history of adverse response to anesthesia Denies family history of Ovarian cancer Prostate cancer Breast cancer Colorectal cancer Social History Smoking Status: Never smoker Second Hand Exposure: No; Do You Dip or Chew Tobacco: No; Tobacco Cessation Education Requested by Patient: No Hx Alcohol Use: No Hx Substance Use: No Preferred Language: Hungarian Communication Ability: Effective Visual Impairment: Limited Hearing Ability: Normal Ripshear Operator Required: No Beliefs That Will Affect Care: None marital status: Current Living Situation: Spouse current occupational status: retired Other Information That Helps Us Care for You: No Feels Safe at Home: Yes Safety Concerns: Feels Safe At This Time Childhood Exposure to Second-Hand Smoke: Yes Diet: diabetic caffeine: Yes Dental Care, Regularly: Yes Physical Activity Frequency: 1-2 Times per Week Physical Activity Frequency Comment: walk Seatbelt Use: always Sunscreen Use: Yes Assistive Devices: Cane, CPAP and Glasses Physical Exam Physical Exam: Patient is alert and oriented Heart regular rhythm lungs clear Results & Data Results & Data Vital Signs (Past 12 Hours) Vital Signs Temp Pulse Resp BP Pulse Ox O2 Del Method 01/26/25 08:16 36.6 C 71 20 156/61 H 98 Room Air
[2025-01-26] MEDS: BUPIVACAINE/EPINEPHRINE 0.25% 1:200,000 30 ML VIAL ONE (10:20)
[2025-01-26] MEDS: ceFAZolin 330 MG/ML 1 GM VIAL ONE (10:33)
--- NOTE | 2025-01-26 10:56 | Operative Report ---
Post Operative Report Pre & Post Diagnosis Operation Date: 01/26/25 09:35 Pre-Op Diagnosis: #1 failed left SI joint fusion. #2 left sacroiliitis #3 morbid obesity Post-Op Diagnosis: Same I identified the patient and participated in the time-out.: Yes Procedure Operation Date: 01/26/25 09:35 Actual Procedures #1 open left SI joint fusion. #2 placement of Nevro one 9 mm implant interdigitating the ileum to the sacrum and the left SI joint. This was filled with infuse and os design bone graft. Surgeon J Luis Schafer, DO Emergency Service Worker Anay Pabon Estimated Blood Loss 10 Findings See Below The patient is 5 foot 4 weighing over 112 kg a BMI in excess of 42. Patient's body was did contribute to significant technical difficulty with positioning exposure and the procedure itself at least 50% increased operative time. Specimens None Indications This is an 84-year-old female who presents with progressive sacroiliitis. 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 Description of Procedure Patient was met with identified informed consent obtained. Patient was then taken to the operative suite underwent the patient placed in a prone position on the Chivo table chest pad and hip bolsters. At this point the left upper buttock was prepped and draped in a sterile fashion. I did make an incision over the left upper buttock and the previous site of the lateral screws. I then was able to place a K wire into the 2 lateral SI joint screws. Attempts were made to remove the screws however they were clearly anchored and were unable to do so. Subsequently I created a incision over the left posterior aspect of the SI joint. Sharp dissection performed down to the posterior fibers. A joint finder was then placed within the joint. I verified position with fluoroscopy. I then placed a dilator and subsequently a working cannula into the left SI joint. The left SI joint was then curetted and rasped to subcortical bleeding bone. I then placed a 9 mm Nevro 1 implant directly in the joint interdigitating the ileum to the sacrum. It was filled with infuse collagen sponge and os design bone graft. The working apparatus was removed. Incision was copiously irrigated and closed with subcutaneous Vicryl and 4 Monocryl for final skin closure. Steri-Strips sterile dressing placed. Patient waken taken the PACU stable condition. Please note Anay Pabon was present at the entire procedure and while the patient positioning complex portion of the surgery and final skin closure. I attest to the content of the Intraoperative Record and any orders documented therein. Any exceptions are noted below.
--- NOTE | 2025-01-26 10:58 | Fluoroscopy Report ---
FL sacrum CLINICAL HISTORY: SI JOINT FUSION AND REVISION COMPARISON STUDY: None FLUOROSCOPY TIME: 86 seconds FLUOROSCOPY IMAGES: 3 EXPOSURE DOSE: 73 mGy FINDINGS: Fluoroscopy was provided for left SI joint surgery. IMPRESSION: Intraoperative fluoroscopy. ACT 112: Negative or not required by law. Electronically signed by: Ceasar Linn M.D. 01/26/2025 10:57 AM
[2025-01-26] MEDS: HYDROmorphone INJ 2 MG/ML SYR/VIAL IV PRN (11:15)
[2025-01-26] MEDS ORDERED: ONDANSETRON 4 MG OD TAB PO PRN (12:44)
[2025-01-26] MEDS ORDERED: PHARMACY GLYCEMIC MGMT CONSULT PRN (12:44)
[2025-01-26] MEDS ORDERED: HYDROmorphone INJ 0.5 MG/0.5 ML SYR IV PRN (12:44)
[2025-01-26] MEDS ORDERED: ACETAMINOPHEN 500 MG TAB PO PRN ×2 (12:44)
[2025-01-26] MEDS ORDERED: NALOXONE HCL 0.4 MG/1 ML VIAL/CARP IV PRN (12:44)
[2025-01-26] MEDS ORDERED: PROMETHAZINE 12.5 MG/50.5 ML BAG IV PRN (12:44)
[2025-01-26] MEDS ORDERED: oxyCODONE HCL IR 5 MG TAB (IMMEDIATE RELEASE) PO PRN (12:44)
[2025-01-26] MEDS ORDERED: LORazepam 2 MG/1 ML VIAL IV PRN (12:44)
[2025-01-26] MEDS ORDERED: METOCLOPRAMIDE HCL INJ 5 MG/ML 2 ML VIAL IV PRN (12:44)
[2025-01-26] MEDS ORDERED: HYDROmorphone INJ 1 MG/ML SYRINGE IV PRN (12:44)
[2025-01-26] MEDS ORDERED: LORazepam 0.5 MG TAB PO PRN (12:44)
[2025-01-26] MEDS: ONDANSETRON INJ 2 MG/ML 2 ML VIAL IV PRN (12:59)
[2025-01-26] MEDS: ceFAZolin 2000MG 2,000 MG/15 ML SYR IV SCH (13:06)
[2025-01-26] MEDS ORDERED: GLUCOSE 40% GEL 15 GM TUBE PO PRN (13:15)
[2025-01-26] MEDS ORDERED: DEXTROSE 50% 50 ML SYRINGE IV PRN (13:15)
[2025-01-26] MEDS ORDERED: CARBOHYDRATES FOR HYPOGLYCEMIA PO PRN (13:15)
[2025-01-26] MEDS ORDERED: GLUCAGON FOR INJ 1 MG VIAL SQ PRN (13:15)
[2025-01-26] MEDS ORDERED: GLUCOSE 10 TAB/TUBE PO PRN (13:15)
[2025-01-26] MEDS: ACETAMINOPHEN 1,000 MG/100 ML VIAL IV PRN (13:23)
--- NOTE | 2025-01-26 13:49 | Pharmacy Report ---
Pharmacy Glycemic Short Note 2 - Date of Service January 26, 2025 - Glycemic Short BSG Results (Last 24 hours): 01/26/25 01/26/25 01/26/25 08:09 11:00 13:30 POC Glucose 152 H 117 H 171 H OUTPATIENT ANTIDIABETIC REGIMEN: * Farxiga 10 mg daily, metformin 1 gm bid, glipizide 5 mg daily, Lantus 20 units daily ASSESSMENT: * 84 year old s/p surgery, POD 0 - pharmacy consulted for glycemic management. Postop BSG ~170 - per reports patient took half of Lantus home dose this AM. Will give remainder of dose for now. Appears steroids also given intraoperatively, will start novolog weight based stress 3 dosing and have scale on for Lantus at HS in case bsgs trend upward. PLAN FOR INPATIENT GLYCEMIC CONTROL: * Hold outpatient oral diabetes medications * Basal insulin * Lantus 10 units x 1 now (in addition to 10 units ROTARY DRILLER PROSPECTING) * Lantus 0-10 units hs if bsg >200 * Bolus insulin * NovoLog per scale ACHS or Q6hrs while NPO * Goal Range: Low 110 mg/dL - High 140 mg/dL * Correction Factor: 15 mg/dL/unit * Nutritional / Prandial insulin per carb ratio of 1 unit per 5 grams CHO consumed
[2025-01-26] MEDS: LANTUS PER UNIT CHARGE SC ONE (14:01)
[2025-01-26] MEDS: INSULIN ASPART PER UNIT CHARGE SC SCH ×2 (14:02→23:19)
--- NOTE | 2025-01-26 14:43 | Anesthesiology Progress Note ---
Date of Service January 26, 2025 Anesthesia Post Procedure Vital Signs Vital Signs: Temp Pulse Pulse Resp BP Pulse Ox O2 Del Method 01/26/25 13:45 81 16 181/84 H 95 Room Air 01/26/25 13:17 79 16 171/74 H 96 Room Air 01/26/25 12:46 36.4 C L 66 16 151/77 H 96 Room Air 01/26/25 12:25 62 13 137/64 99 Nasal Cannula 01/26/25 12:10 36.3 C L 65 12 127/65 99 Nasal Cannula 01/26/25 11:55 62 16 139/59 L 97 Nasal Cannula 01/26/25 11:45 65 16 137/57 L 94 Room Air 01/26/25 11:35 36.4 C L 65 16 136/59 L 98 Oxymask 01/26/25 11:25 64 12 135/58 L 97 Oxymask 01/26/25 11:15 68 14 146/59 H 99 Oxymask 01/26/25 11:05 70 18 137/58 L 97 Oxymask 01/26/25 10:57 36.0 C L 79 18 144/62 H 94 Oxymask 01/26/25 08:16 36.6 C 71 20 156/61 H 98 Room Air O2 Flow Rate 01/26/25 13:45 01/26/25 13:17 01/26/25 12:46 01/26/25 12:25 2 01/26/25 12:10 2 01/26/25 11:55 2 01/26/25 11:45 01/26/25 11:35 2 01/26/25 11:25 2 01/26/25 11:15 4 01/26/25 11:05 6 01/26/25 10:57 6 01/26/25 08:16 Pain Intensity Left Back: Pain Intensity: 4 Transfer of Care Handoff Completed per policy Notes Mental Status: alert / awake / arousable and participated in evaluation Nausea / Vomiting: adequately controlled Pain: adequately controlled Airway Patency, RR, SpO2: stable & adequate BP & HR: stable & adequate Hydration State: stable & adequate Anesthetic Complications: no major complications apparent and Pt Satisfied with anesthetic care
[2025-01-26] MEDS: ceFAZolin 3000MG 3,000 MG/72.5 ML BAG IV SCH (14:47)
--- NOTE | 2025-01-26 16:28 | Hospitalist Consultation ---
Date of Consultation January 26, 2025 Assessment & Plan (1) Chronic SI joint pain: (2) Controlled type 2 diabetes mellitus with kidney complication, with long-term current use of insulin: (3) Hx pulmonary embolism: (4) Hypertension: (5) Morbid obesity with BMI of 40.0-44.9, adult: Plan Griselda is an 84-year-old female with a past medical history of sacroiliitis,DMT2, JOSE, HTN, hyperlipidemia, hx of DVT/PE and chronic pain who presents to the hospital for elective surgery with Dr. Schafer. Hospital Medicine was consulted for medical management. #SI Joint Pain S/p Revision SI joint fusion and revision with new hardware placement with Dr. Schafer 01/26 Pain control / Dispo planning / abx per primary team EBL 10 cc Check AM CBC and BMP #HX of DVT/PE On warfarin 6mg chronically - follows with [facility] Per [facility] documentation - should have 12mg Coumadin 01/26 and 01/27 and bridge with lovenox 40mg until therapeutic Goal 2-3 AM INR #HTN Hold lasix/K pending AM labs Continue Felodopine # JOSE - okay to us home CPAP #DMT2 Pharmacy glycemic consult per primary team Thank you for allowing us to participate in the care of this patient, please reach out with any questions or concerns. hospital medicine will continue to follow Supervising Physician Co-Signing Physician Notes Attending Attestation & Consult Note: Pt seen/examined, chart reviewed, consult care plan d/w MICHAELA Malik. I agree w/ the adan components of her documentation with the following addition - ##morbid obesity, BMI 42.5## 84yo female with history of sacroiliitis, DMT2, JOSE on CPAP, HTN, hyperlipidemia, hx of DVT/PE on warfarin (managed by [facility]). Due to chronic SI joint pain she underwent elective SI joint fusion and revision with new hardware placement by Dr. Schafer today. I saw her on the ortho floor post-op. She had had nausea with several episodes of emesis earlier today. Symptoms did resolve; was able to tolerate dinner this evening. Denies any chest pain, dyspnea, or abd pain. Having operative pain in the low back/buttock region. PMH/PSH/allergies/meds/sochx - reviewed VSS, o2 sats wnl gen - sitting in chair, NAD, obese neck - no JVD mouth - MMM heart - RRR, s1 s2, 1/6 DESMOND LLSB lungs - CTA b/l, mildly decreased BS bases abd - soft NT ND BS+ ext - severe lymphedema of b/l legs, pulses b/l feet 2+ skin - back dressings intact, blood-soaked a1c 5.6% in late December BMP/CBC in late December also wnl A/P: 1. s/p SI joint fusion/revision procedure by Dr Schafer 2. h/o DVT/PE on chronic warfarin -I corresponded with Dr Schafer - he is ok with starting coumadin today -12mg today, then 12mg tomorrow -INR in am tomorrow 3. JOSE - CPAP 4. nausea/emesis - likely due to anesthesia - has resolved, but watch carefully for recurrent symptoms to suggest early ileus; did tolerate dinner fortunately 5. T2DM - controlled ; pharmacy glycemic team consulted by Dr Schafer for glycemic oversite 6. HTN - felodipine/lasix with appropriate hold parameters check labs in am Thank you for this consult. Will follow with you. Bhargav Alba MD History of Present Illness Reason for Consultation: Medical management Requesting Physician: Dr. Schafer Attending Physician: J Luis Schafer, History of Present Illness Griselda is an 84-year-old female with a past medical history of sacroiliitis,DMT2, JOSE, HTN, hyperlipidemia, hx of DVT/PE and chronic pain who presents to the hospital for elective surgery with Dr. Schafer. Patient seen postoperatively in room 324. Feeling okay now, was nauseous after lunch. Will plan to not advance diet. Does still have some pain in the hip area, 11/18 brought her cpap takes doxycycline for rosacea Allergies Allergy/AdvReac Type Severity Reaction Status Date / Time No Known Allergies Allergy Verified 01/26/25 08:23 Home Medications Medication Instructions Recorded Confirmed Type cyanocobalamin (vitamin B-12) 500 1,000 mcg PO QAM 02/08/19 01/26/25 History mcg tablet (Vitamin B-12) blood-glucose meter (OneTouch #1 ea 07/23/19 01/25/25 History Verio Flex Meter) lancets 33 gauge (OneTouch Delica #100 ea 07/23/19 01/25/25 History Lancets) CPAP Supplies #1 ea 01/18/21 01/25/25 Rx doxycycline hyclate 50 mg capsule 50 mg PO BID 07/29/22 01/26/25 History cholecalciferol (vitamin D3) 25 25 mcg PO QAM 01/22/23 01/26/25 History mcg (1,000 unit) capsule (Vitamin D3) acetaminophen 500 mg tablet 1,000 mg PO UD PRN Pain 02/27/23 01/26/25 History BD Ultra-Fine Mahsa Pen Needle 32 #100 ea 04/01/24 01/25/25 Rx gauge x 5/32" (pen needle, diabetic) pravastatin 40 mg tablet 40 mg PO HS #90 tabs 06/03/24 01/26/25 Rx felodipine 10 mg tablet,extended 10 mg PO QAM #90 tabs 06/04/24 01/26/25 Rx release 24 hr furosemide 40 mg tablet 40 mg PO QAM #90 tabs 06/04/24 01/26/25 Rx amoxicillin 500 mg capsule 2,000 mg (4 x 500 mg) PO ONCE PRN 06/08/24 01/26/25 Rx dental work #4 caps glipizide 5 mg tablet 5 mg PO QAM 06/28/24 01/26/25 History potassium chloride 10 mEq 20 meq PO QAM 06/28/24 01/26/25 History tablet,extended release(part/cryst) warfarin 6 mg tablet 6 mg PO DAILY 06/28/24 01/26/25 History metformin 500 mg tablet,extended 1,000 mg (2 x 500 mg) PO BID #360 06/30/24 01/26/25 Rx release 24 hr tabs OneTouch Verio test strips (blood #300 ea 09/27/24 01/25/25 Rx sugar diagnostic) insulin glargine 100 unit/mL (3 20 unit (0.2 mL) subcut QAM #3 mL 10/11/24 01/26/25 Rx mL) subcutaneous pen (Lantus Solostar U-100 Insulin) Farxiga 10 mg tablet 10 mg PO QAM #90 tabs 10/13/24 01/26/25 Rx (dapagliflozin propanediol) oxycodone 5 mg tablet 5 mg PO Q6H PRN pain #30 tabs 01/26/25 Rx Patient History Medical History (Updated 01/26/25 @ 16:47 by Erin Malik PA-C) Hx pulmonary embolism (1991) 1991, no issues since, on warfarin Lymphedema states wears scd's at times-states left arm is typically used for IV/lab draws/BP-denies limb restriction Chronic pain syndrome Controlled type 2 diabetes mellitus with kidney complication, with long-term current use of insulin Hyperlipidemia HTN (hypertension) controlled, stable per pt Myofascial pain Rosacea 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 starks today 12/29/24 Diabetic nephropathy Per records TMJ (temporomandibular joint disorder) No current issues-denies any recent jaw locking or clicking Osteopenia Per records, patient unaware History of blood transfusion 1995 Nummular eczema Morbid obesity with BMI of 40.0-44.9, adult History of rhinophyma Hx of basal cell carcinoma s/p excision Hx of deep venous thrombosis LLE (1991) No issues since, on warfarin Surgical History S/P trigger finger release (09/01/23) right thumb History of reverse total replacement of right shoulder joint History of biliary stent insertion (02/2024) February 2024 and since removed May 11 2024. History of repair of right rotator cuff S/P cubital tunnel release right S/P insertion of spinal cord stimulator (07/2022) 07/2022 Patient advised to bring SCS remote DOS History of surgery SI joint fusion (10/16/20): Grade 3 view, MAC#3, ETT 7.5 at [facility] History of colonoscopy S/P epidural steroid injection S/P lumbar fusion History of appendectomy Status post uvulopalatopharyngoplasty History of tonsillectomy Hx of squamous cell carcinoma excision Hx of basal cell carcinoma excision Hx of hernia repair ventral hernia repair History of carpal tunnel release of both wrists Hx of cholecystectomy History of knee replacement procedure of right knee History of knee replacement procedure of left knee Hx of total hysterectomy with BSO S/P laminectomy Family History Father Diabetes Unknown Type 2 diabetes mellitus Coronary heart disease COPD (chronic obstructive pulmonary disease) Brother Diabetes Sister Systemic lupus erythematosus Cardiac disorder Myocardial infarction Other No family history of adverse response to anesthesia Denies family history of Ovarian cancer Prostate cancer Breast cancer Colorectal cancer Social History Smoking Status: Never smoker Second Hand Exposure: No; Do You Dip or Chew Tobacco: No; Hx Alcohol Use: No Hx Substance Use: No Preferred Language: Cymro Communication Ability: Effective Visual Impairment: Limited Hearing Ability: Normal Blade Boner Required: No Beliefs That Will Affect Care: None marital status: Current Living Situation: Spouse current occupational status: retired Feels Safe at Home: Yes Childhood Exposure to Second-Hand Smoke: Yes Diet: diabetic caffeine: Yes Dental Care, Regularly: Yes Physical Activity Frequency: 1-2 Times per Week Physical Activity Frequency Comment: walk Seatbelt Use: always Sunscreen Use: Yes Assistive Devices: Cane, CPAP and Glasses Review of Systems Review of Systems: All systems reviewed & are unremarkable except as noted in Subjective Physical Exam Physical Exam: General: NAD, VS as above Resp: normal respiratory effort, diminished in bases CV: RRR, + murmur, Abd: normal bowel sounds, non tender, soft Extremities: Moves all extremities, non pitting LE edema Neuro: A&O x3, Results & Data Results & Data Vital Signs (Past 12 Hours) Vital Signs Temp Pulse Pulse Resp BP Pulse Ox O2 Del Method 01/26/25 15:53 97.3 F L 70 16 152/70 H 96 Room Air 01/26/25 14:45 97.5 F L 71 16 149/75 H 94 Room Air 01/26/25 13:45 81 16 181/84 H 95 Room Air 01/26/25 13:17 79 16 171/74 H 96 Room Air 01/26/25 12:46 97.5 F L 66 16 151/77 H 96 Room Air 01/26/25 12:25 62 13 137/64 99 Nasal Cannula 01/26/25 12:10 97.3 F L 65 12 127/65 99 Nasal Cannula 01/26/25 11:55 62 16 139/59 L 97 Nasal Cannula 01/26/25 11:45 65 16 137/57 L 94 Room Air 01/26/25 11:35 97.5 F L 65 16 136/59 L 98 Oxymask 01/26/25 11:25 64 12 135/58 L 97 Oxymask 01/26/25 11:15 68 14 146/59 H 99 Oxymask 01/26/25 11:05 70 18 137/58 L 97 Oxymask 01/26/25 10:57 96.8 F L 79 18 144/62 H 94 Oxymask 01/26/25 08:16 97.9 F 71 20 156/61 H 98 Room Air O2 Flow Rate 01/26/25 15:53 01/26/25 14:45 01/26/25 13:45 01/26/25 13:17 01/26/25 12:46 01/26/25 12:25 2 01/26/25 12:10 2 01/26/25 11:55 2 01/26/25 11:45 01/26/25 11:35 2 01/26/25 11:25 2 01/26/25 11:15 4 01/26/25 11:05 6 01/26/25 10:57 6 01/26/25 08:16 PG Care Time/CCT Total # of Minutes Spent Total Time Spent with Patient: Total time spent is greater than 50% in coordination of care (as documented) at patient's floor/unit and/or counseling patient: Coding Level of Care Code 13518 IN/OBS CONSULT LVL 3,45M Diagnoses Chronic SI joint pain M53.3; G89.29 Controlled type 2 diabetes mellitus with kidney complication, with long-term current use of insulin E11.29; Z79.4 Hx pulmonary embolism Z86.711 Hypertension I10 Morbid obesity with BMI of 40.0-44.9, adult E66.01; Z68.41
[2025-01-26] MEDS: WARFARIN SOD 6 MG TAB PO ONE (17:20)
[2025-01-26] MEDS: traMADol HCL 50 MG TABLET PO PRN (17:25)
[2025-01-26] MEDS: DOXYCYCLINE HYCLATE 50 MG CAP PO SCH (20:08)
[2025-01-26] MEDS: PRAVASTATIN SOD 40 MG TAB PO SCH (20:08)
[2025-01-26] MEDS: LANTUS PER UNIT CHARGE SC SCH (20:10)
[2025-01-27 03:56] VITALS: TEMP 97.7
[2025-01-27 07:14] VITALS: BP 138/72; PULSE 63; RESP 16; O2SAT 98
[2025-01-27] MEDS: FELODIPINE 5 MG TABCR PO SCH (07:31)
[2025-01-27] MEDS: CHOLECALCIFEROL 25 MCG (1000 UNITS) TAB PO SCH (07:31)
[2025-01-27] MEDS: CYANOCOBALAMIN (B-12) 500 MCG TABLET PO SCH (07:31)
[2025-01-27] MEDS: FUROSEMIDE 40 MG TAB PO SCH (07:32)
[2025-01-27 08:11] LABS: Hematocrit (blood only) 38.4 % (37.0-47.0); Hemoglobin 12.7 g/dl (12.0-16.0); Mean Corpuscular Hemoglobin 30.2 pg (25.0-34.0); Mean Corpuscular Hgb Conc 33.1 g/dL (32.0-36.0); Mean Corpuscular Volume 91.2 fL (80.0-100.0); Mean Platelet Volume 10.3 fL (9.4-12.4); Platelet Count 251 K/uL (130-400); RDW Coefficient of Variation 14.2 % (11.5-14.5); RDW Standard Deviation 47.3 fL (36.4-46.3); Red Blood Count 4.21 M/uL (4.20-5.40); White Blood Count 9.49 K/ul (4.8-10.8)
[2025-01-27 08:27] LABS: BUN Creatinine Ratio 24.5 (10-20); Calcium 9.4 mg/dl (8.6-10.3); Creatinine Clr Calc Pharmacy 55.7 ml/min; Potassium 4.6 mmol/L (3.5-5.1)
[2025-01-27 08:35] LABS: INR 1.1 (0.9-1.1); Prothrombin Time 11.4 Seconds (9.0-12.0)
[2025-01-27] MEDS: LANTUS PER UNIT CHARGE SC SCH (08:38)
[2025-01-27] MEDS: ENOXAPARIN INJ 40 MG/0.4 ML SYR SQ SCH (08:38)
--- NOTE | 2025-01-27 08:48 | Discharge Summary ---
Date of Service January 27, 2025 Admission HPI Per Admitting Provider This is a she is 84 years old this is an 84-year-old female who presents with chronic persistent left SI joint pain. 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 Admission Exam (Per Admitting) Constitutional WD/WN, vitals as above Eyes normal visual gibbs by confrontation ENMT external ear and nose normal, oropharynx normal Neck normal visual inspection Respiratory normal respiratory effort Cardiovascular Extremities: + edema Gastrointestinal (Abdomen) Inspection/Auscultation: abdomen normal to inspection Musculoskeletal Spine: + sciatic notch tenderness and + sacroiliac joint abnormality Extremities: strength 5/5 throughout Skin normal turgor Neurologic normal touch/pain/proprioception and moves all extremities Psychiatric A+Ox3, euthymic affect Eye Contact: good eye contact Discharge Data Consultations 01/26/25 12:44 Consult Internal Medicine Routine Procedures Performed Operation Date: 01/26/25 09:35 Actual Procedures p Revision SI Joint Fusion with Revision and New Hardware Placement, Left(Left) - J Luis Schafer DO Hospital Course (1) Chronic SI joint pain: Griselda has been discharged home on postoperative day 1 status post revision SI joint fusion on the left. This morning pain is improved. She is going to have physical therapy to reiterate her toe-touch weightbearing status on the left. After physical therapy will be discharged home.
[2025-01-27] MEDS: POTASSIUM CHLORIDE CRTAB 20 MEQ TABCR PO SCH (08:49)
[2025-01-27] MEDS ORDERED: glipiZIDE 5 MG TAB PO SCH (09:00)
[2025-01-27] MEDS ORDERED: WARFARIN SOD 6 MG TAB PO SCH (16:00)
== END 2025-01-27 11:39 | disposition home health service (06) | DRG 451 ==
LOC: ASU 08:02 → 3E 11:02 → INTOOBSV 11:02